=== PATIENT | female | born 1995 | race Caucasian/White ===

== ENCOUNTER → 2019-09-08 15:50 | Outpatient (CLI) | payer OTHER, MEDICAID, SELFPAY ==
[2019-09-08 16:53] LABS: Influenza A - CEPHEID Flu A NEGATIVE (NEGATIVE); Influenza B - CEPHEID Flu B NEGATIVE (NEGATIVE)
[2019-09-19 13:39] LABS: COVID19 Sendout Not Detected (Not Detected)
== END ==
PROVIDERS: Family Provider Family Medicine; PCP Family Medicine; Visit Provider Family Medicine
DX: R05 Cough (principal); R50.9 Fever, unspecified
CPT/HCPCS: 87502; 87635

== ENCOUNTER → 2019-09-24 10:20 | Outpatient (CLI) | payer OTHER, MEDICAID, SELFPAY ==
[2019-09-24 13:36] LABS: Add Manual Diff / Slide Review NO; Basophils Absolute Auto 0 /uL (0-100); Basophils Percent Auto 0.5 % (0-2); Eosinophils Absolute Auto 200 /uL (0-450); Eosinophils Percent Auto 1.9 % (2-4); Hematocrit 39.2 % (36-46); Hemoglobin 12.9 g/dL (12.0-16.0); Lymphocytes Absolute Auto 3100 /uL (1100-4500); Lymphocytes Percent Auto 33.6 % (25-40); Mean Corpuscular HGB Conc 32.9 % (30-36); Mean Corpuscular Hemoglobin 25.8 PG (26-34); Mean Corpuscular Volume 78.5 fL (80-100); Monocytes Absolute Auto 700 /uL (0-900); Monocytes Percent Auto 7.7 % (3-14); Neutrophils Absolute Auto 5200 /uL (1500-7000); Neutrophils Percent Auto 56.3 % (50-75); Platelet Count 219 X10^3/uL (150-400); Red Blood Cell Count 4.99 X10^6/uL (4.0-5.2); Red Cell Distribution Width 14.5 % (11.6-14.8); White Blood Cell Count 9.1 X10^3/uL (4.5-11.0)
[2019-09-24 13:53] LABS: Appearance Urine UA CLEAR; Bilirubin Urine UA NEGATIVE (NEGATIVE); Color Urine UA YELLOW; Glucose Urine UA NEGATIVE (Negative); Ketones Urine UA NEGATIVE (NEGATIVE); Leukocyte Esterase Urine UA TRACE (NEGATIVE); Nitrite Urine UA NEGATIVE (Negative); Occult Blood Urine UA NEGATIVE (Negative); Protein Urine UA NEGATIVE (Negative); Urobilinogen Urine UA 0.2 E.U./dL (0.2)
[2019-09-24 13:57] LABS: Alanine Aminotransferase 31 IU/L (<35); Albumin 4.2 g/dL (3.5-5.0); Albumin Globulin Ratio 1.6 (1.0-2.8); Alkaline Phosphatase 93 U/L (38-126); Amylase 53 U/L (30-110); Aspartate Aminotransferase 26 IU/L (14-36); BUN Creatinine Ratio 26.3 (6-22); Bilirubin Total 0.3 mg/dL (0.2-1.3); Blood Urea Nitrogen 15 mg/dL (7-17); Calcium 9.6 mg/dL (8.4-10.2); Carbon Dioxide 21 mmol/L (22-32); Chloride 107 mmol/L (98-107); Cholesterol 199 mg/dL (140-199); Estimated Glomerular Filt Rate > 60.0 mL/min (>60); Globulin 2.7 g/dL (1.7-4.1); Glucose 75 mg/dL (70-100); HDL Cholesterol 33 mg/dL (40-60); HEMOLYSIS < 15 (0-50); LDL Cholesterol Calculated 135 mg/dL (<100); Potassium 4.3 mmol/L (3.4-5.1); Sodium 138 mmol/L (137-145); Total Protein 6.9 g/dL (6.3-8.2); Triglycerides 154 mg/dL (35-150)
[2019-09-24 14:13] LABS: pH Urine UA 6.5 (4.5-8.0)
[2019-09-24 14:14] LABS: Bacteria Urine Many (>30); Culture Indicated Urine Specimen Cultured; RBC Urine 0-1/HPF (0-5/HPF); Squamous Epithelial Cell Urine 1-5 /HPF (0-5/HPF); WBC Urine 1-5/HPF (0-5/HPF)
[2019-09-24 14:24] LABS: Thyroid Stimulating Hormone 2.47 uIU/mL (0.47-4.68)
[2019-09-24 14:39] LABS: Hemoglobin A1C% w Est Avg Glu 5.3 % (4.0-6.0)
== END ==
PROVIDERS: Family Provider Family Medicine; PCP Family Medicine; Referring Provider Family Medicine; Visit Provider Family Medicine
DX: R11.2 Nausea with vomiting, unspecified (principal)
CPT/HCPCS: 36415; 80053; 80061; 81003; 81015; 82150; 83036; 84443; 85025; 87086

== ENCOUNTER → 2019-09-30 09:30 | Outpatient (CLI) | payer OTHER, MEDICAID, SELFPAY ==
--- NOTE | 2019-09-30 09:32 | DI.RAD.S_ITS ---
PROCEDURE: FL BARIUM SWALLOW INDICATIONS: Intermittent but persistent generally postprandial emesis COMPARISON: None. FINDINGS: Function: There is normal esophageal peristalsis. No elicited gastroesophageal reflux. Morphology: Air-contrast images demonstrate normal mucosal morphology. Single contrast views show no esophageal strictures, extrinsic mass effects, or diverticula. Images of the stomach demonstrate normal appearance. The duodenal bulb was well-visualized and appeared normal. IMPRESSION: Normal caliber of the esophagus, normal esophageal motility. No reflux observed. Normal appearance of the gastric lumen and duodenal bulb. Source of current symptoms is not seen. Dictated by: Shaka Griggs M.D. on 09/30/2019 at 10:52 Approved by: Shaka Griggs M.D. on 09/30/2019 at 10:53
== END ==
PROVIDERS: Family Provider Family Medicine; PCP Family Medicine; Referring Provider Family Medicine; Visit Provider Family Medicine
DX: R11.2 Nausea with vomiting, unspecified (principal)
CPT/HCPCS: 74220

== ENCOUNTER 2020-01-10 20:17 | Emergency (ER) | payer OTHER, MEDICAID, SELFPAY ==
[2020-01-10 20:20] VITALS: BP 142/70; PULSE 111; O2SAT 99
[2020-01-10 20:26] VITALS: BP 142/70; PULSE 105; RESP 18; TEMP 36.8; O2SAT 97; BMI 34.3
--- NOTE | 2020-01-10 20:32 | DI.RAD.S_ITS ---
PROCEDURE: XR CHEST 1V INDICATIONS: cough TECHNIQUE: One view of the chest was acquired. COMPARISON: None. FINDINGS: Surgical changes and devices: None. Lungs and pleura: Lungs are clear. No pleural effusions or pneumothorax. Mediastinum: Mediastinal contours appear normal. Heart size is normal. Bones and chest wall: No suspicious bony lesions. Overlying soft tissues appear unremarkable. IMPRESSION: No acute cardiopulmonary findings. Dictated by: Arabella Mejia M.D. on 01/10/2020 at 21:10 Approved by: Arabella Mejia M.D. on 01/10/2020 at 21:11
[2020-01-10 20:33] VITALS: PULSE 125; O2SAT 100
--- NOTE | 2020-01-10 20:33 | ED.URI ---
HPI - URI/Sore Throat General Chief Complaint: Upper Respiratory Symptoms Stated Complaint: Cough Time Seen by Provider: 01/10/20 20:21 History of Present Illness HPI Narrative: 24-year-old woman with a history of multiple personality disorder, depression, anxiety, PTSD, migraines and reflux presents with 5 days of a dry cough. She denies dyspnea or fevers. She has tried 2 puffs from an MDI and Tessalon Perles with no relief from the cough. She also notes that she is having increasing musculoskeletal pain because of the cough with some tenderness just medial to the right shoulder blade. No sore throat, no vomiting, no diarrhea, no rashes, no chest pain, no lower extremity edema, no change to smell or taste, she is able to eat and drink without difficulty. Related Data Home Medications Medication Instructions Recorded Confirmed clonidine HCl 0.1 mg tablet See Rx Instructions PO .COMPLEX 12/12/19 tab pantoprazole 40 mg tablet,delayed 40 mg PO DAILY 12/12/19 12/12/19 release Previous Rx's Medication Instructions Recorded ondansetron 8 mg disintegrating 8 mg PO Q8H #20 tab 09/24/19 tablet olanzapine 20 mg tablet 20 mg PO BEDTIME #30 tab 11/12/19 acyclovir 400 mg tablet 400 mg PO BID #120 tab 12/15/19 docusate sodium 100 mg capsule 100 mg PO BID #180 cap 12/15/19 lamotrigine 100 mg tablet 100 mg PO DAILY #30 tab 01/06/20 amitriptyline 25 mg tablet 25 mg PO BEDTIME #30 tab 01/08/20 buspirone 10 mg tablet 10 mg PO BID #60 tab 01/08/20 albuterol sulfate 90 mcg/actuation 2 puff INHALATION Q6H PRN #18 gram 01/10/20 aerosol inhaler benzonatate 100 mg capsule 100 mg PO BID-TID PRN #30 cap 01/10/20 Allergies Allergy/AdvReac Type Severity Reaction Status Date / Time latex [LATEX] Allergy Unknown Verified 12/12/19 12:56 Sulfa (Sulfonamide Allergy Unknown Verified 11/12/19 16:00 Antibiotics) [SULFA (SULFONAMIDE ANTIBIOTICS)] Review of Systems Review of Systems Narrative: Pertinent positive and negative findings as per HPI Remainder of review of systems is otherwise unremarkable for : Dysuria, hematuria, flank pain MS: Muscle weakness, numbness, joint swelling or warmth Skin: Rashes, nonhealing lesions Neuro: Syncope, dizziness, tingling Patient History Medical History Allergies (Chronic) Bronchitis (Acute) Dyspepsia (Acute) GERD (gastroesophageal reflux disease) (Acute) History of suicide attempt (Acute) Nausea & vomiting (Acute) Personality disorder (Chronic) Surgical History Anesthesia (Resolved) History of third molar tooth extraction History of tonsillectomy (~2013) Social History Smoking Status: Current every day smoker Smoking Status: Current every day smoker tobacco type: cigarettes Substance Use Type: does not use Exam Narrative Exam Narrative: General: Healthy appearing, in no acute distress. Able to give a complete and coherent history while speaking in full sentences. Well-nourished well-developed HEENT: Moist mucous membranes, normal sclera with reactive pupils, Neck: No cervical adenopathy, supple Respiratory: Lungs are clear to auscultation, no wheezing no rales no rhonchi. Full and symmetrical air movement, no accessory muscle use Cardiac: Regular rate and rhythm no murmurs no bruits Back: Muscle spasm and tenderness medial aspect of her right clavicle without rash, abrasion, trauma Abdomen: Soft nontender good bowel tones, no flank pain Skin: Warm and dry, no rashes Neurologic: Grossly neurologically intact with no obvious asymmetries or abnormalities Extremities: No trauma, well perfused Psych: Cooperative, appropriate insight and affect Initial Vital Signs Initial Vital Signs: Vital Signs Pulse Rate 111 H 01/10/20 20:20 Blood Pressure 142/70 H 01/10/20 20:20 Pulse Oximetry 99 01/10/20 20:20 Course Orders Ordered: ED Orders 01/10/20 20:32 XR chest 1V Stat Discontinued Medications Acetaminophen (Tylenol) 975 mg PO NOW ONE Stop: 01/10/20 21:15 Last Admin: 01/10/20 21:21 Dose: 975 mg Documented by: Albuterol (Ventolin Hfa) 8 puff INH NOW ONE Stop: 01/10/20 20:32 Last Admin: 01/10/20 20:50 Dose: 8 puff Documented by: SHANELLE Vital Signs Vital signs: Vital Signs - 8 hr 01/10/20 20:20 01/10/20 20:26 01/10/20 20:33 Temperature 98.3 F Pulse Rate 111 H 105 H 125 H Respiratory Rate 18 Blood Pressure 142/70 H 142/70 H Pulse Oximetry 99 97 100 01/10/20 20:51 01/10/20 21:00 Temperature Pulse Rate 124 H 120 H Respiratory Rate 20 Blood Pressure Pulse Oximetry 98 98 [facility] - URI/Sore Throat Lab Data Attestation: I reviewed the patient's lab results. Labs: Point of Care Testing Test Results Negative Urine Dip Bedside Urine Glucose Negative Bedside Urine Bilirubin + 1 Bedside Urine Ketone +/- 5 Urine Specific [place] 1.030 Bedside Urine Occult Blood - Negative Bedside Urine pH 5.5 Bedside Urine Protein - Negative Bedside Urine Urobilinogen - Negative Bedside Urine Nitrite - Negative Bedside Urine Leukocytes - Negative Esterase Imaging Data Chest x-ray: Radiologist's Impression: IMPRESSION: No acute cardiopulmonary findings. Dictated by: Arabella Mejia M.D. on 01/10/2020 at 21:10 [facility] Narrative Medical decision making narrative: 24-year-old woman with dry intermittent cough that is been present for approximately 2 weeks worse over the last 24 hours. No fevers or chills nonproductive. She has found that 2 puffs of her MDI directly into her mouth have not been effective and Tessalon Perles have not been effective in the last 24 hours but were working previously. Chest x-ray is unremarkable. Exam is unremarkable with no significant wheezing. Rather than a nebulizer (due to concerns for aerosolized particles in the emergency department) a spacer with 8 puffs of albuterol is administered with significant benefit. She has not used a spacer and is given spacer for home use along with instructions in use. She does still have Tessalon Perles at home. Asthma related cough verses viral infection with no evidence of sepsis, pulmonary emboli, congestive heart failure, or other life-threatening issues. She is safe for home discharge Discharge Plan Departure Patient Disposition: Home Clinical Impression: Cough Instructions: Coronavirus Disease 2019 Activity Restrictions/Additional Instructions: Thank you for coming in today Your chest x-ray was reassuring as were your vital signs including your oxygen saturation. Your clinical exam did not suggest significant wheezing. A covered test was done and you should self isolate until results are back sometime tomorrow. You will be be contacted with results. In the meantime, using albuterol the spacer seemed like it was effective in suppressing the cough a bit for you. I would recommend 2 puffs of your albuterol with a spacer every 6 hours. You may find with the cough slightly suppressed/treated with the albuterol that the Tessalon Perles that you currently have at home are more effective incompletely controlling the cough. If you find that you are getting worse, develope fevers, shortness of breath, began coughing up anything or have new or changing symptoms it would be appropriate to be re-evaluated by your primary care physician. Prescriptions: No Action olanzapine 20 mg tablet 20 mg PO BEDTIME Qty: 30 RF: 2 clonidine HCl 0.1 mg tablet See Rx Instructions PO .COMPLEX RF: 0 pantoprazole [Protonix] 40 mg tablet,delayed release (DR/EC) 40 mg PO DAILY RF: 0 acyclovir 400 mg tablet 400 mg PO BID Qty: 120 RF: 0 docusate sodium 100 mg capsule 100 mg PO BID Qty: 180 RF: 1 lamotrigine 100 mg tablet 100 mg PO DAILY Qty: 30 RF: 2 buspirone 10 mg tablet 10 mg PO BID Qty: 60 RF: 0 amitriptyline 25 mg tablet 25 mg PO BEDTIME Qty: 30 RF: 1 albuterol sulfate [ProAir HFA] 90 mcg/actuation HFA aerosol inhaler 2 puff INHALATION Q6H PRN (Reason: shortness of breath or wheezing) Qty: 18 RF: 0 benzonatate [Tessalon Perles] 100 mg capsule 100 mg PO BID-TID PRN (Reason: cough) Qty: 30 RF: 0 ondansetron 8 mg tablet,disintegrating 8 mg PO Q8H Qty: 20 RF: 2 Referrals: Max Samuels, [Primary Care Provider] - Stand Alone Forms: Work Release Note
[2020-01-10] MEDS: ALBUTEROL HFA 60 PUFF/8 GM INH 8 PUFF INH (20:50)
[2020-01-10 20:51] VITALS: PULSE 124; RESP 20; O2SAT 98
[2020-01-10 21:00] VITALS: PULSE 120; O2SAT 98
[2020-01-10] MEDS: ACETAMINOPHEN 325 MG TABLET 975 MG PO (21:21)
[2020-01-15 00:07] LABS: COVID19 Sendout Not Detected (Not Detected)
== END 2020-01-10 21:37 | disposition home or self-care (01) ==
PROVIDERS: Emergency Provider Emergency Medicine; Family Provider Family Medicine; PCP Family Medicine
DX: Z03.818 Encounter for observation for suspected exposure to other biological agents ruled out (principal); R05 Cough
CPT/HCPCS: 71045; 81003; 81025; 87635; 94640; 99283

== ENCOUNTER → 2020-03-03 08:16 | Outpatient (CLI) | payer OTHER, MEDICAID, SELFPAY ==
[2020-03-04 16:55] LABS: COVID19 Sendout Not Detected (Not Detected)
== END ==
PROVIDERS: Family Provider Family Medicine; PCP Family Medicine; Visit Provider Physician Assistant
DX: Z11.59 Encounter for screening for other viral diseases (principal)
CPT/HCPCS: 87635

== ENCOUNTER → 2020-03-31 12:04 | Outpatient (CLI) | payer OTHER, MEDICAID, SELFPAY ==
[2020-03-31 13:22] LABS: Add Manual Diff / Slide Review NO; Basophils Absolute Auto 0 /uL (0-100); Basophils Percent Auto 0.5 % (0-2); Eosinophils Absolute Auto 200 /uL (0-450); Eosinophils Percent Auto 1.8 % (2-4); Hematocrit 40.1 % (36-46); Hemoglobin 12.9 g/dL (12.0-16.0); Lymphocytes Absolute Auto 2200 /uL (1100-4500); Lymphocytes Percent Auto 22.3 % (25-40); Mean Corpuscular HGB Conc 32.2 % (30-36); Mean Corpuscular Hemoglobin 25.4 PG (26-34); Mean Corpuscular Volume 78.8 fL (80-100); Monocytes Absolute Auto 800 /uL (0-900); Monocytes Percent Auto 8.1 % (3-14); Neutrophils Absolute Auto 6600 /uL (1500-7000); Neutrophils Percent Auto 67.3 % (50-75); Platelet Count 222 X10^3/uL (150-400); Red Blood Cell Count 5.09 X10^6/uL (4.0-5.2); Red Cell Distribution Width 13.6 % (11.6-14.8); White Blood Cell Count 9.8 X10^3/uL (4.5-11.0)
[2020-03-31 14:15] LABS: Thyroid Stimulating Hormone 1.73 uIU/mL (0.47-4.68)
[2020-03-31 14:53] LABS: Alanine Aminotransferase 43 IU/L (<35); Albumin Globulin Ratio 1.5 (1.0-2.8); Alkaline Phosphatase 121 U/L (38-126); Aspartate Aminotransferase 32 IU/L (14-36); BUN Creatinine Ratio 15.8 (6-22); Bilirubin Total 0.4 mg/dL (0.2-1.3); Blood Urea Nitrogen 9 mg/dL (7-17); Calcium 9.2 mg/dL (8.4-10.2); Carbon Dioxide 26 mmol/L (22-32); Chloride 104 mmol/L (98-107); Cholesterol 166 mg/dL (140-199); Estimated Glomerular Filt Rate > 60.0 mL/min (>60); Globulin 2.7 g/dL (1.7-4.1); Glucose 100 mg/dL (70-100); HDL Cholesterol 31 mg/dL (40-60); HEMOLYSIS < 15 (0-50); LDL Cholesterol Calculated 121 mg/dL (<100); Potassium 4.2 mmol/L (3.4-5.1); Sodium 137 mmol/L (137-145); Total Protein 6.7 g/dL (6.3-8.2); Triglycerides 69 mg/dL (35-150)
== END ==
PROVIDERS: Family Provider Family Medicine; PCP Family Medicine; Referring Provider Family Medicine; Visit Provider Family Medicine
DX: G43.909 Migraine, unspecified, not intractable, without status migrainosus (principal); R55 Syncope and collapse; W19.XXXA Unspecified fall, initial encounter; E78.5 Hyperlipidemia, unspecified
CPT/HCPCS: 36415; 80053; 80061; 84443; 85025

== ENCOUNTER → 2020-04-01 14:02 | Outpatient (CLI) | payer OTHER, MEDICAID, SELFPAY ==
[2020-04-01 15:18] LABS: HEMOLYSIS < 15 (0-50); Iron 49 ug/dL (37-170)
[2020-04-01 15:29] LABS: Percent Iron Saturation 13 % (15-50); Total Iron Binding Capacity 390 ug/dL (265-497); Transferrin 313 mg/dL (206-381)
== END ==
PROVIDERS: Family Provider Family Medicine; PCP Family Medicine; Referring Provider Family Medicine; Visit Provider Family Medicine
DX: I49.8 Other specified cardiac arrhythmias (principal)
CPT/HCPCS: 36415; 83540; 83550

== ENCOUNTER → 2020-04-15 16:19 | Outpatient (CLI) | payer OTHER, MEDICAID, SELFPAY | PROVIDERS: Family Provider Family Medicine; PCP Family Medicine; Visit Provider Registered Nurse | DX: N39.0 Urinary tract infection, site not specified (principal) | CPT/HCPCS: 87077; 87086; 87147; 87186 ==

== ENCOUNTER → 2020-05-19 11:41 | Outpatient (CLI) | payer OTHER, MEDICAID, SELFPAY ==
[2020-05-19 12:13] LABS: COVID19 -Nasal RAPID Negative (Negative)
== END ==
PROVIDERS: Family Provider Family Medicine; PCP Family Medicine; Visit Provider Family Medicine
DX: R05 Cough (principal); Z11.59 Encounter for screening for other viral diseases
CPT/HCPCS: 87635

== ENCOUNTER → 2020-06-15 17:13 | Outpatient (CLI) | payer OTHER, MEDICAID, SELFPAY ==
--- NOTE | 2020-06-15 17:15 | DI.RAD.S_ITS ---
PROCEDURE: XR CHEST 2V INDICATIONS: Chronic Cough TECHNIQUE: 2 views of the chest were acquired. COMPARISON: [facility], CR, XR CHEST 1V, 01/10/2020, 20:50. FINDINGS: Surgical changes and devices: None. Lungs and pleura: Lungs are clear. No pleural effusions or pneumothorax. Mediastinum: Mediastinal contours are normal. Heart size is normal. Bones and chest wall: No suspicious bony abnormalities. Soft tissues appear unremarkable. IMPRESSION: No acute cardiopulmonary abnormality. Dictated by: Mehrdad Baeza M.D. on 06/15/2020 at 18:13 Approved by: Mehrdad Baeza M.D. on 06/15/2020 at 18:14
== END ==
PROVIDERS: Family Provider Family Medicine; PCP Family Medicine; Referring Provider Family Medicine; Visit Provider Family Medicine
DX: R05 Cough (principal)
CPT/HCPCS: 71046

== ENCOUNTER → 2020-07-14 16:59 | Outpatient (CLI) | payer OTHER, MEDICAID, SELFPAY ==
--- NOTE | 2020-07-14 17:02 | DI.RAD.S_ITS ---
PROCEDURE: XR LUMBAR SPINE 2-3V INDICATIONS: low back pain TECHNIQUE: 3 views of the lumbar spine were acquired. COMPARISON: [facility], , XR CHEST 2V, 06/15/2020, 17:15. FINDINGS: Bones: 5 [id number] vertebrae are present. Trace dextrocurvature. Grade 1 retrolisthesis L5-S1. No vertebral body compression fractures. No suspicious bony lesions. Soft tissues: Overlying bowel gas pattern is normal. No suspicious soft tissue calcifications. IMPRESSION: Trace dextrocurvature and grade 1 retrolisthesis L5-S1. Dictated by: Sukhi Holland [facility] Interpreted: Iftikhar Serrano MD on 07/15/2020 at 9:26 Approved by: Iftikhar Serrano M.D. on 07/15/2020 at 10:59
== END ==
PROVIDERS: Family Provider Family Medicine; PCP Family Medicine; Referring Provider Internal Medicine Cardiovascular Disease; Visit Provider Family Medicine
DX: M54.5 Low back pain (principal); M43.17 Spondylolisthesis, lumbosacral region
CPT/HCPCS: 72100

== ENCOUNTER 2020-07-18 16:00 | Emergency (ER) | payer OTHER, MEDICAID, SELFPAY ==
[2020-07-18 16:06] VITALS: BP 130/85; PULSE 119; RESP 24; TEMP 37.4; O2SAT 99
--- NOTE | 2020-07-18 17:33 | ED_ITS ---
HPI - Back Pain/Injury General Chief Complaint: Back Pain/Injury Stated Complaint: back pain x2 wks Time Seen by Provider: 07/18/20 17:33 Source: patient and family Mode of arrival: Ambulatory Limitations: no limitations History of Present Illness HPI Narrative: This is a 25-year-old female who comes complaint of back pain x2 weeks. Patient states she has had some episodes in the past but not frequently. She states most recent episode has been made worse by prolonged standing at work. 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 She does not describe any recent trauma or injury. She had denies fevers, no nausea or vomiting, no loss of bowel or bladder control, she denies radiation down the legs. She did describe the pain as being in her lower back and radiating down her gluteal cleft. She states she has increased pain with movement such as rotation and side bending. She also states she has increased pain with bowel movements but not in the rectum, she describes it as having increased pain when she bears down but higher up in the lumbar region. She denies any numbness, tingling or weakness to her extremities. She has not had any loss of sensation or saddle anesthesia. Patient has tried Tylenol, ibuprofen, and 3 different muscle relaxants without improvement. Today she went into the walk-in clinic and was told she could not have a Toradol shot because s he had already had ibuprofen today. Patient did have x-ray imaging and recent doctor's visit but had not reviewed those results with her physician. She states she has received steroids along with Percocet and found that to be very helpful for her back pain in the past when she was seen at [facility]. Related Data Home Medications Medication Instructions Recorded Confirmed pantoprazole 40 mg tablet,delayed 40 mg PO DAILY 12/12/19 07/07/20 release dicyclomine 10 mg PO PRN PRN 01/10/20 07/07/20 dexamethasone 4 mg tablet 4 mg PO DAILY 07/07/20 07/07/20 linaclotide 72 mcg capsule 72 mcg PO DAILY cap 07/07/20 07/07/20 methocarbamol 750 mg tablet 750 mg PO TID 07/07/20 07/07/20 oxycodone-acetaminophen 5 mg-325 1 tab PO TID PRN 07/07/20 07/07/20 mg tablet Previous Rx's Medication Instructions Recorded ondansetron 8 mg disintegrating 8 mg PO Q8H #20 tab 09/24/19 tablet docusate sodium 100 mg capsule 100 mg PO BID #180 cap 12/15/19 acyclovir 400 mg tablet 400 mg PO BID #180 tab 02/09/20 meclizine 12.5 mg tablet 12.5 mg PO BID PRN #30 tab 04/01/20 rizatriptan 5 mg tablet 5 mg PO ONCE #20 tab 04/01/20 buspirone 10 mg tablet 10 mg PO BID #60 tab 05/12/20 lamotrigine 100 mg tablet 150 mg PO DAILY #45 tab 05/12/20 olanzapine 20 mg tablet 20 mg PO BEDTIME #30 tab 05/12/20 clonidine HCl 0.1 mg tablet 0.2 mg PO BEDTIME #60 tab 07/06/20 piroxicam 20 mg capsule 20 mg PO DAILY #20 cap 07/14/20 tizanidine 4 mg tablet 4 mg PO TID PRN #20 tab 07/14/20 oxycodone-acetaminophen [Percocet] 1 tab PO Q6H PRN #7 tab 07/18/20 prednisone 50 mg PO DAILY #5 tab 07/18/20 Allergies Allergy/AdvReac Type Severity Reaction Status Date / Time latex [LATEX] Allergy Unknown Verified 07/07/20 15:56 Sulfa (Sulfonamide Allergy Unknown Verified 07/07/20 15:56 Antibiotics) [SULFA (SULFONAMIDE ANTIBIOTICS)] Review of Systems Review of Systems ROS Unobtainable: All systems reviewed & are unremarkable except as noted in HPI and below Patient History Medical History Acute bacterial bronchitis Allergies Bronchitis Chronic cough Dyspepsia GERD (gastroesophageal reflux disease) History of suicide attempt Low back strain Nausea & vomiting Personality disorder POTS (postural orthostatic tachycardia syndrome) Surgical History Anesthesia History of third molar tooth extraction History of tonsillectomy (~2012) Social History Smoking Status: Former smoker (Quit 06/15/20 ) Smoking Status: Former smoker (Quit 06/15/20 ) tobacco type: cigarettes Substance Use Type: does not use Exam Narrative Exam Narrative: GENERAL: Alert and oriented x three, well-nourished female in mild to moderate discomfort. HEENT: Head normocephalic, atraumatic, EOMI, pupils reactive, face symmetric, moist mucous membranes NECK: Supple, full range of motion CARDIOVASCULAR: Regular rate and rhythm without murmurs, rubs or gallops. RESPIRATORY: Breath sounds equal bilaterally, no wheezes rales or rhonchi. ABDOMEN: Soft, nontender. Normoactive bowel sounds all 4 quadrants. No guarding or rebound, rigidity, no mass : No CVA tenderness BACK: No cervical, thoracic or lumbar vertebral point tenderness except at the L5-S1 region. No warmth, erythema or other skin changes appreciated. Patient has somewhat range of motion, patient appears uncomfortable but is able to move herself independently. Rectal exam is deferred. Muscle strength is 5/5 in lower extremities, DTRs are 2/4 and lower extremities. Dorsalis pedis and tibialis pulses are 2+ and lower extremities. Sensation is intact in the lower extremities. EXTREMITIES: Normal range of motion, no clubbing or edema. Neurovascularly intact NEUROLOGICAL: Cranial nerves II through XII grossly intact. Moving all extremities SKIN: Warm, dry, no petechiae, no rashes or lesions. Initial Vital Signs Initial Vital Signs: Vital Signs Temperature 99.4 F 07/18/20 16:06 Pulse Rate 119 H 07/18/20 16:06 Respiratory Rate 24 07/18/20 16:06 Blood Pressure 130/85 07/18/20 16:06 Pulse Oximetry 99 07/18/20 16:06 Course Orders Ordered: Discontinued Medications Oxycodone/Acetaminophen (Oxycodone/Acetaminophen 5/325 Tablet) 1 tab PO NOW ONE Stop: 07/18/20 18:13 Last Admin: 07/18/20 18:22 Dose: Not Given Documented by: MANJIT Oxycodone/Acetaminophen (Oxycodone/Apap 5/325 Prepack) 1 bottle MISC SEEINSTR ONE Stop: 07/18/20 18:18 Last Admin: 07/18/20 18:23 Dose: 1 bottle Documented by: MANJIT Prednisone (Prednisone 20 Mg Tablet) 40 mg PO NOW ONE Stop: 07/18/20 18:13 Last Admin: 07/18/20 18:17 Dose: 40 mg Documented by: MANJIT Vital Signs Vital signs: Vital Signs - 8 hr 07/18/20 16:06 07/18/20 18:25 Temperature 99.4 F Pulse Rate 119 H 90 Respiratory Rate 24 16 Blood Pressure 130/85 125/80 Pulse Oximetry 99 99 [facility] - Back Pain/Injury Lab Data Labs: Point of Care Testing Test Results Negative Urine Dip Bedside Urine Glucose 1000 mg/dl Bedside Urine Bilirubin - Negative Bedside Urine Ketone - Negative Urine Specific [place] 1.030 Bedside Urine Occult Blood - Negative Bedside Urine pH 6.0 Bedside Urine Protein - Negative Bedside Urine Urobilinogen - Negative Bedside Urine Nitrite - Negative Bedside Urine Leukocytes - Negative Esterase Imaging Data Lumbar xray: Radiologist's Impression: [address] [id number] ReportSigned Patient: Brigitte Patrick NMR#: [id number]: 1995Acct:[id number]/Sex: 25 / FDate of Service: 07/14/20Loc: RADAccession Number: [id number] Procedure: XR lumbar spine 2-3V Ordering Provider: Max Samuels D.O. PROCEDURE: XR LUMBAR SPINE 2-3V INDICATIONS: low back pain TECHNIQUE: 3 views of the lumbar spine were acquired. COMPARISON: [facility], , XR CHEST 2V, 06/15/2020, 17:15. FINDINGS: Bones: 5 [id number] vertebrae are present. Trace dextrocurvature. Grade 1 retrolisthesis L5-S1. No vertebral body compression fractures. No suspicious bony lesions. Soft tissues: Overlying bowel gas pattern is normal. No suspicious soft tissue calcifications. IMPRESSION: Trace dextrocurvature and grade 1 retrolisthesis L5-S1. Dictated by: Sukhi Holland [facility] Interpreted: Iftikhar Serrano MD on 07/15/2020 at 9:26 Approved by: Iftikhar Serrano M.D. on 07/15/2020 at 10:59 [facility] Narrative Medical decision making narrative: 25-year-old female comes in with complaint of acute on chronic back pain although she has only had several episodes. She has seen her primary care she has been recommend PT. Given a short course of steroid and pain medication. She had imaging on July 14 of this is reviewed. She does have a grade 1 retrolisthesis at L5-S1 but no other significant changes noted. Patient recommended for referral and red flag symptoms discussed and encouraged her return if she has any of these. Discharge Plan Departure Patient Disposition: Home Clinical Impression: Low back pain Instructions: DI for Low Back Pain Activity Restrictions/Additional Instructions: Follow-up with your physician in the next week for recheck. I do recommend PT for your back pain. Take steroids once daily until gone. Take pain medication as prescribed, medication can make you sleepy do not drive, perform hazardous activities make any major decisions while taking. This medication is constipating I would recommend a stool softener 1 or 2 times daily stools are soft and regular. Return for fevers, severe worsening back pain, loss of bowel or bladder control, inability to move your legs, feel them, loss of sensation or other new or concerning symptoms Prescriptions: New prednisone 50 mg tablet 50 mg PO DAILY Qty: 5 RF: 0 oxycodone-acetaminophen [Percocet] 5-325 mg tablet 1 tab PO Q6H PRN (Reason: pain) Qty: 7 RF: 0 No Action oxycodone-acetaminophen [Percocet] 5-325 mg tablet 1 tab PO TID PRNRF: 0 dexamethasone 4 mg tablet 4 mg PO DAILY RF: 0 pantoprazole [Protonix] 40 mg tablet,delayed release (DR/EC) 40 mg PO DAILY RF: 0 olanzapine 20 mg tablet 20 mg PO BEDTIME Qty: 30 RF: 2 buspirone 10 mg tablet 10 mg PO BID Qty: 60 RF: 2 lamotrigine 100 mg tablet 150 mg PO DAILY Qty: 45 RF: 2 docusate sodium 100 mg capsule 100 mg PO BID Qty: 180 RF: 1 acyclovir 400 mg tablet 400 mg PO BID Qty: 180 RF: 1 clonidine HCl 0.1 mg tablet 0.2 mg PO BEDTIME Qty: 60 RF: 0 Linzess 72 mcg capsule 72 mcg PO DAILY RF: 0 methocarbamol 750 mg tablet 750 mg PO TID RF: 0 piroxicam [Feldene] 20 mg capsule 20 mg PO DAILY Qty: 20 RF: 0 tizanidine 4 mg tablet 4 mg PO TID PRN (Reason: muscle spasticity) Qty: 20 RF: 0 ondansetron 8 mg tablet,disintegrating 8 mg PO Q8H Qty: 20 RF: 2 rizatriptan 5 mg tablet 5 mg PO ONCE Qty: 20 RF: 0 meclizine 12.5 mg tablet 12.5 mg PO BID PRN (Reason: dizziness) Qty: 30 RF: 0 dicyclomine 10 mg capsule 10 mg PO PRN PRN (Reason: Abdominal Discomfort) RF: 0 Referrals: Max Samuels DO [Primary Care Provider] -
[2020-07-18] MEDS: predniSONE 20 MG TABLET 40 MG PO (18:17)
[2020-07-18] MEDS: OXYCODONE/APAP 5/325 PREPACK 1 BOTTLE MISC (18:23)
[2020-07-18 18:25] VITALS: BP 125/80; PULSE 90; RESP 16; O2SAT 99
== END 2020-07-18 18:25 | disposition home or self-care (01) ==
PROVIDERS: Emergency Provider Emergency Medicine; Family Provider Family Medicine; PCP Family Medicine
DX: M54.5 Low back pain (principal)
CPT/HCPCS: 81003; 81025; 99282; 99283

== ENCOUNTER 2020-08-05 14:36 | Emergency (ER) | payer OTHER, MEDICAID, SELFPAY ==
[2020-08-05 14:51] VITALS: BP 133/94; PULSE 96; RESP 16; TEMP 36.2; O2SAT 100; BMI 39.8
[2020-08-05 16:00] LABS: Appearance Urine UA SL CLOUDY; Bilirubin Urine UA NEGATIVE (NEGATIVE); Color Urine UA YELLOW; Glucose Urine UA NEGATIVE (Negative); Ketones Urine UA NEGATIVE (NEGATIVE); Leukocyte Esterase Urine UA TRACE (NEGATIVE); Nitrite Urine UA NEGATIVE (Negative); Occult Blood Urine UA TRACE-LYSED (Negative); Protein Urine UA TRACE (Negative); Urobilinogen Urine UA 0.2 E.U./dL (0.2)
[2020-08-05 16:09] LABS: pH Urine UA 6.5 (4.5-8.0)
[2020-08-05 16:10] LABS: Amorphous Sediment Urine 1+; Bacteria Urine Moderate (10-30); Culture Indicated Urine Specimen Cultured; Mucus Urine 1+ (Negative); RBC Urine 0-1/HPF (0-5/HPF); Squamous Epithelial Cell Urine 5-10 /HPF (0-5/HPF); WBC Urine 5-10/HPF (0-5/HPF)
--- NOTE | 2020-08-05 16:44 | ED.BACK ---
HPI - Back Pain/Injury General Chief Complaint: Back Pain/Injury Stated Complaint: Pain in tailbone x2 weeks Time Seen by Provider: 08/05/20 16:44 Source: patient and family Mode of arrival: Ambulatory Limitations: no limitations History of Present Illness HPI Narrative: This is a 25-year-old female who has been seen by myself in the past for lower back pain. Patient states the pain has moved further down into her tailbone and has been present for the last 2 weeks. Last seen it was noted she had an L5-S1 retrolisthesis, she states she has been going to PT since she was seen here and her 2nd session was yesterday which seemed to exacerbate her symptoms. Any trauma or falls she has not had any swelling, redness or drainage from the gluteal crease. She does not have any rectal pain or pain with bowel movement. Patient denies fevers, no chills. No upper back pain. No chest pain or shortness of breath. No vomiting., she has had some frequency, sense of urgency and dysuria. She states she has had a little bit of pain down her right leg. She denies any numbness, tingling. No bowel or bladder incontinence. She states she has tried ibuprofen, Tylenol as well as a muscle relaxer without much improvement. She is accompanied by her mother. Related Data Home Medications Medication Instructions Recorded Confirmed pantoprazole 40 mg tablet,delayed 40 mg PO DAILY 12/12/19 07/28/20 release dicyclomine 10 mg PO PRN PRN 01/10/20 07/28/20 linaclotide 72 mcg capsule 72 mcg PO DAILY cap 07/07/20 07/28/20 Previous Rx's Medication Instructions Recorded ondansetron 8 mg disintegrating 8 mg PO Q8H #20 tab 09/24/19 tablet docusate sodium 100 mg capsule 100 mg PO BID #180 cap 12/15/19 acyclovir 400 mg tablet 400 mg PO BID #180 tab 02/09/20 buspirone 10 mg tablet 10 mg PO BID #60 tab 05/12/20 lamotrigine 100 mg tablet 150 mg PO DAILY #45 tab 05/12/20 olanzapine 20 mg tablet 20 mg PO BEDTIME #30 tab 05/12/20 propranolol 10 mg tablet See Rx Instructions PO .COMPLEX 07/28/20 #60 tab rizatriptan 5 mg tablet 5 mg PO ONCE #20 tab 08/02/20 cephalexin [Keflex] 500 mg PO BID #10 cap 08/05/20 lidocaine 1 patch TOPICAL DAILY PRN #15 ea 08/05/20 meloxicam 7.5 mg PO DAILY PRN #20 tab 08/05/20 Allergies Allergy/AdvReac Type Severity Reaction Status Date / Time latex [LATEX] Allergy Unknown Verified 08/05/20 14:50 Sulfa (Sulfonamide Allergy Unknown Verified 08/05/20 14:50 Antibiotics) [SULFA (SULFONAMIDE ANTIBIOTICS)] Review of Systems Review of Systems ROS Unobtainable: All systems reviewed & are unremarkable except as noted in HPI and below Patient History Medical History Acute bacterial bronchitis Allergies Bronchitis Chronic cough Dyspepsia GERD (gastroesophageal reflux disease) History of suicide attempt Low back strain Nausea & vomiting Personality disorder POTS (postural orthostatic tachycardia syndrome) Surgical History Anesthesia History of third molar tooth extraction History of tonsillectomy (~2012) Social History Smoking Status: Former smoker Smoking Status: Former smoker tobacco type: cigarettes Substance Use Type: does not use Exam Narrative Exam Narrative: GENERAL: Alert and oriented x three, obese, well-appearing female in mild distress. HEENT: Head normocephalic, atraumatic, EOMI, pupils reactive, face symmetric, moist mucous membranes NECK: Supple, full range of motion CARDIOVASCULAR: Regular rate and rhythm without murmurs, rubs or gallops. RESPIRATORY: Breath sounds equal bilaterally, no wheezes rales or rhonchi. ABDOMEN: Soft, nontender. Normoactive bowel sounds all 4 quadrants. No guarding or rebound, rigidity, no mass, patient does not have swelling, erythema, induration or fluctuance over the buttocks, gluteal crease or within the crease. Unable to palpate directly onto the bone which seems to be the area that is tender. BACK: No cervical, thoracic or lumbar vertebral point tenderness. Patient does have tenderness over the coccyx specifically. Patient has normal range of motion. Patient's gait is [antalgic/normal]. Rectal exam is deferred. Muscle strength is 5/5 in lower extremities. Patient is able to roll over onto her abdomen and return to her back without difficulty. Sensation intact bilateral lower extremities. : No CVA tenderness EXTREMITIES: Normal range of motion, no clubbing or edema. Neurovascularly intact NEUROLOGICAL: Cranial nerves II through XII grossly intact. Moving all extremities SKIN: Warm, dry, no petechiae, no rashes or lesions. Initial Vital Signs Initial Vital Signs: Vital Signs Temperature 97.1 F L 08/05/20 14:51 Pulse Rate 96 H 08/05/20 14:51 Respiratory Rate 16 08/05/20 14:51 Blood Pressure 133/94 H 08/05/20 14:51 Pulse Oximetry 100 08/05/20 14:51 Course Orders Ordered: ED Orders 08/05/20 15:44 UA Complete [Urinalysis and Microscopic] Stat Urine Culture Stat 08/05/20 16:53 XR sacrum coccyx min 2V Stat Vital Signs Vital signs: Vital Signs - 8 hr 08/05/20 14:51 08/05/20 17:50 Temperature 97.1 F L Pulse Rate 96 H 102 H Respiratory Rate 16 16 Blood Pressure 133/94 H 102/64 Pulse Oximetry 100 97 MDM - Back Pain/Injury Lab Data Attestation: I reviewed the patient's lab results. Labs: Lab Results 08/05/20 Range/Units 15:44 Urine Color Yellow Urine Appearance Sl cloudy Urine pH 6.5 (4.5-8.0) Ur Specific [place] 1.020 (1.000-1.035) Urine Protein Trace H (Negative) Urine Glucose (UA) Negative (Negative) g/dL Urine Ketones Negative (NEGATIVE) Urine Occult Blood Trace-lysed (Negative) Urine Nitrate Negative (Negative) Urine Bilirubin Negative (NEGATIVE) Urine Urobilinogen 0.2 (0.2) E.U./dL Ur Leukocyte Esterase Trace H (NEGATIVE) Urine RBC 0-1/hpf (0-5/HPF) Urine WBC 5-10/hpf H (0-5/HPF) Ur Squamous Epith Cells 5-10 /hpf H (0-5/HPF) Amorphous Sediment 1+ Urine Bacteria Moderate (10-30) H (None) Urine Mucus 1+ H (Negative) Ur Culture Indicated? Specimen cultured Point of Care Testing Test Results Negative Urine Dip Bedside Urine Glucose Negative Bedside Urine Bilirubin - Negative Bedside Urine Ketone - Negative Urine Specific [place] 1.025 Bedside Urine Occult Blood +/- Bedside Urine pH 6.0 Bedside Urine Protein +/- 15 Bedside Urine Urobilinogen - Negative Bedside Urine Nitrite - Negative Bedside Urine Leukocytes - Negative Esterase Imaging Data sacrum/coccyx: Radiologist's Impression: [place] [id number] [place] [id number] ReportSigned Patient: Brigitte Patrick NMR#: [id number]: 1995Acct:[id number]/Sex: 25 / FDate of Service: 08/05/20Loc: EDAccession Number: [id number] Procedure: XR sacrum coccyx min 2V Ordering Provider: Saskia Sepulveda D.O. PROCEDURE: XR SACRUM COCCYX MIN 2V INDICATIONS: coccyx pain, no known trauma, hx L5/S1 retrolithesis TECHNIQUE: 3 views of the sacrum and coccyx acquired. COMPARISON: [facility], CR, XR LUMBAR SPINE 2-3V, 07/14/2020, 17:06. FINDINGS: Bones: No fractures or dislocations. No suspicious bony lesions. The coccyx demonstrates an anteriorly projected angle, which is not considered to be frankly pathologic. Minimal retrolisthesis is seen at L5-S1. Soft tissues: Visualized bowel gas pattern is normal. No suspicious soft tissue densities. IMPRESSION: No significant plain film abnormality is seen. Dictated by: Chalino Martell M.D. on 08/05/2020 at 16:07 Approved by: Chalino Martell M.D. on 08/05/2020 at 16:08 [facility] [place] Narrative Medical decision making narrative: [place] [employer] shows last Rx refill from 07/19/20 for 7 tabs and 07/07/20 for 18 tabs with prior from October. Xray does not show acute changes with no trauma. There is no skin changes that are suspicious for pilonidal cyst or rectal abscess. Patient ambulates without major issue and exam findings are positive for tenderness over the coccyx. She has some L5-S1 changes has been doing PT and this is likely irritated the area. Discharge Plan Departure Patient Disposition: Home Clinical Impression: Coccydynia, UTI (urinary tract infection) Instructions: Coccydynia Activity Restrictions/Additional Instructions: Follow-up with your physician in the next week. Talk with your PT to see if they need to adjust your treatments this is likely irritating the area and causing your pain. Your urine does show changes consistent with a bladder infection, take antibiotics twice daily until gone. You may use azo or Pyridium 1 tablet every 8 hours as needed for bladder spasm. Take pain medication as prescribed you may take 1 tablet every 12 hours. You may take Tylenol with this medication up to a 1000 mg every 8 hours. May use lidocaine patch just above the gluteal crease for his symptoms to see if this is helpful. Prescriptions sent to [facility] in [place]. Changed after patient left at there request to [facility] [place]. Return to the ER for fevers, new redness, swelling or skin changes over the coccyx region, loss of bowel or bladder control, rapidly worsening symptoms, new weakness, inability usually extremity or loss of sensation, fevers, chest pain, abdominal pain/flank pain, passing out or persistent vomiting or other new or concerning symptoms. Prescriptions: New cephalexin [Keflex] 500 mg capsule 500 mg PO BID Qty: 10 RF: 0 lidocaine 5 % adhesive patch,medicated 1 patch topical DAILY PRN (Reason: pain) Qty: 15 RF: 0 meloxicam 7.5 mg tablet 7.5 mg PO DAILY PRN (Reason: pain) Qty: 20 RF: 0 No Action pantoprazole [Protonix] 40 mg tablet,delayed release (DR/EC) 40 mg PO DAILY RF: 0 olanzapine 20 mg tablet 20 mg PO BEDTIME Qty: 30 RF: 2 buspirone 10 mg tablet 10 mg PO BID Qty: 60 RF: 2 lamotrigine 100 mg tablet 150 mg PO DAILY Qty: 45 RF: 2 propranolol 10 mg tablet See Rx Instructions PO .COMPLEX Qty: 60 RF: 0 docusate sodium 100 mg capsule 100 mg PO BID Qty: 180 RF: 1 acyclovir 400 mg tablet 400 mg PO BID Qty: 180 RF: 1 Linzess 72 mcg capsule 72 mcg PO DAILY RF: 0 rizatriptan 5 mg tablet 5 mg PO ONCE Qty: 20 RF: 2 ondansetron 8 mg tablet,disintegrating 8 mg PO Q8H Qty: 20 RF: 2 dicyclomine 10 mg capsule 10 mg PO PRN PRN (Reason: Abdominal Discomfort) RF: 0 Referrals: Max Samuels, [Primary Care Provider] -
--- NOTE | 2020-08-05 16:53 | DI.RAD.S_ITS ---
PROCEDURE: XR SACRUM COCCYX MIN 2V INDICATIONS: coccyx pain, no known trauma, hx L5/S1 retrolithesis TECHNIQUE: 3 views of the sacrum and coccyx acquired. COMPARISON: [facility], , XR LUMBAR SPINE 2-3V, 07/14/2020, 17:06. FINDINGS: Bones: No fractures or dislocations. No suspicious bony lesions. The coccyx demonstrates an anteriorly projected angle, which is not considered to be frankly pathologic. Minimal retrolisthesis is seen at L5-S1. Soft tissues: Visualized bowel gas pattern is normal. No suspicious soft tissue densities. IMPRESSION: No significant plain film abnormality is seen. Dictated by: Chalino Martell M.D. on 08/05/2020 at 16:07 Approved by: Chalino Martell M.D. on 08/05/2020 at 16:08
[2020-08-05 17:50] VITALS: BP 102/64; PULSE 102; RESP 16; O2SAT 97
--- NOTE | 2020-08-05 17:51 | PC.NURSE ---
Pt states I know I have a UTI but my tailbone still hurts. No injury to the area. Pt has been seen and evaluated for same recently and x ray was neg for fx
== END 2020-08-05 18:09 | disposition home or self-care (01) ==
PROVIDERS: Emergency Provider Emergency Medicine; Family Provider Family Medicine; PCP Family Medicine
DX: M53.3 Sacrococcygeal disorders, not elsewhere classified (principal); N39.0 Urinary tract infection, site not specified; E66.9 Obesity, unspecified; Z68.39 Body mass index [BMI] 39.0-39.9, adult
CPT/HCPCS: 72220; 81001; 81003; 81025; 87077; 87086; 87186; 99282; 99283

== ENCOUNTER 2020-08-14 22:28 | Emergency (ER) | payer OTHER, MEDICAID, SELFPAY ==
[2020-08-14 22:36] VITALS: BP 129/71; PULSE 115; PULSE 95; RESP 17; TEMP 37; O2SAT 99; BMI 40.7
--- NOTE | 2020-08-14 22:45 | ED_ITS ---
HPI - Abdominal Pain General Chief Complaint: Abdominal Pain Stated Complaint: right side abdominal pain Time Seen by Provider: 08/14/20 22:43 Source: patient Mode of arrival: Ambulatory Limitations: no limitations History of Present Illness HPI narrative: This is a 25-year-old female who comes to the emergency [facility] with complaint of right-sided abdominal pain which started 3 hours prior to arrival. Patient states that she has not had similar pain in the past she does have a history of IBS but states this feels different. She did stop her Linzess was having 1-2 times daily stools that were well-formed. Patient states she developed pain she states it was close to her belly button and radiates towards the right side. She states it feels worse when she pushes but does not worsen when she releases her fingers. She denies fever or chills. She denies any nausea or vomiting. She states she has had 5 or 6 loose stools today but no melena or hematochezia. She denies any urinary frequency dysuria or urgency but states she was recently on antibiotics for UTI. She has also been taking meloxicam for tailbone pain and following with PT for her lower back. She states her back is been feeling better she continues to have some pain in her tailbone. Patient denies any vaginal bleeding or discharge. Related Data Home Medications Medication Instructions Recorded Confirmed pantoprazole 40 mg tablet,delayed 40 mg PO DAILY 12/12/19 07/28/20 release dicyclomine 10 mg PO PRN PRN 01/10/20 07/28/20 linaclotide 72 mcg capsule 72 mcg PO DAILY cap 07/07/20 07/28/20 Previous Rx's Medication Instructions Recorded ondansetron 8 mg disintegrating 8 mg PO Q8H #20 tab 09/24/19 tablet docusate sodium 100 mg capsule 100 mg PO BID #180 cap 12/15/19 acyclovir 400 mg tablet 400 mg PO BID #180 tab 02/09/20 buspirone 10 mg tablet 10 mg PO BID #60 tab 05/12/20 lamotrigine 100 mg tablet 150 mg PO DAILY #45 tab 05/12/20 olanzapine 20 mg tablet 20 mg PO BEDTIME #30 tab 05/12/20 propranolol 10 mg tablet See Rx Instructions PO .COMPLEX 07/28/20 #60 tab rizatriptan 5 mg tablet 5 mg PO ONCE #20 tab 08/02/20 cephalexin [Keflex] 500 mg PO BID #10 cap 08/05/20 lidocaine 1 patch TOPICAL DAILY PRN #15 ea 08/05/20 meloxicam 7.5 mg PO DAILY PRN #20 tab 08/05/20 Allergies Allergy/AdvReac Type Severity Reaction Status Date / Time latex [LATEX] Allergy Unknown Verified 08/05/20 14:50 Sulfa (Sulfonamide Allergy Unknown Verified 08/05/20 14:50 Antibiotics) [SULFA (SULFONAMIDE ANTIBIOTICS)] Review of Systems Review of Systems ROS Unobtainable: All systems reviewed & are unremarkable except as noted in HPI and below Patient History Medical History Acute bacterial bronchitis Allergies Bronchitis Chronic cough Dyspepsia GERD (gastroesophageal reflux disease) History of suicide attempt Low back strain Nausea & vomiting Personality disorder POTS (postural orthostatic tachycardia syndrome) Surgical History Anesthesia History of third molar tooth extraction History of tonsillectomy (~2012) Social History Smoking Status: Former smoker Smoking Status: Former smoker tobacco type: cigarettes Substance Use Type: does not use Exam Narrative Exam Narrative: GENERAL: Alert and oriented x three, obese, well-appearing female in mild distress HEENT: Head normocephalic, atraumatic, EOMI, pupils reactive, face symmetric, moist mucous membranes NECK: Supple, full range of motion CARDIOVASCULAR: Regular but tachycardic rate and rhythm without murmurs, rubs or gallops. RESPIRATORY: Breath sounds equal bilaterally, no wheezes rales or rhonchi. ABDOMEN: Soft, mid right-sided abdominal pain that is moderate. Normoactive bowel sounds all 4 quadrants. No guarding or rebound, rigidity, no mass. : No CVA tenderness EXTREMITIES: Normal range of motion, no clubbing or edema. Neurovascularly intact NEUROLOGICAL: Cranial nerves II through XII grossly intact. Moving all extremities SKIN: Warm, dry, no petechiae, no rashes or lesions. Initial Vital Signs Initial Vital Signs: Vital Signs Temperature 98.6 F 08/14/20 22:36 Pulse Rate 115 H 08/14/20 22:36 Respiratory Rate 17 08/14/20 22:36 Blood Pressure 129/71 08/14/20 22:36 Pulse Oximetry 99 08/14/20 22:36 Course Orders Ordered: ED Orders 08/14/20 22:50 Complete Blood Count AUTO DIFF Stat Comprehensive Metabolic Panel Stat Lactate (Lactic Acid) Stat Lipase Stat 08/14/20 23:02 CT abdomen pelvis w con Stat 08/14/20 23:18 Blood Culture Stat 08/15/20 00:22 Urine Culture Stat Discontinued Medications Sodium Chloride (Normal Saline 0.9%) 1,000 mls @ 1,000 mls/hr IV BOLUS ONE Stop: 08/14/20 23:47 Last Infusion: 08/14/20 23:19 Dose: 1,000 mls/hr Documented by: Infusion: 08/14/20 23:09 Dose: 0 mls/hr Documented by: Admin: 08/14/20 23:03 Dose: 1,000 mls/hr Documented by: NANI Sodium Chloride (Normal Saline 0.9%) 1,000 mls @ 1,000 mls/hr IV BOLUS ONE Stop: 08/15/20 00:01 Last Admin: 08/14/20 23:51 Dose: Not Given Documented by: NANI Ketorolac Tromethamine (Ketorolac 60 Mg/2 Ml Vial) 30 mg IV NOW ONE Stop: 08/14/20 23:03 Last Admin: 08/14/20 23:14 Dose: 30 mg Documented by: NANI Vital Signs Vital signs: Vital Signs - 8 hr 08/14/20 22:36 08/14/20 22:56 08/14/20 23:00 Temperature 98.6 F Pulse Rate 95 H Respiratory Rate 17 Blood Pressure 129/71 132/86 135/85 Pulse Oximetry 99 100 100 08/14/20 23:38 08/15/20 00:00 08/15/20 00:27 Temperature Pulse Rate 112 H 100 H Respiratory Rate 20 14 Blood Pressure 127/68 Pulse Oximetry 99 99 98 MDM - Abdominal Pain Lab Data Attestation: I reviewed the patient's lab results. Result diagrams: 08/14/20 22:50 08/14/20 22:50 Labs: Lab Results 02/20/21 02/20/21 02/20/21 Range/Units 22:50 22:50 22:50 WBC 12.4 H (4.5-11.0) X10^3/uL RBC 4.89 (4.0-5.2) X10^6/uL Hgb 12.0 (12.0-16.0) g/dL Hct 37.7 (36-46) % MCV 77.1 L (80-100) fL MCH 24.5 L (26-34) PG MCHC 31.8 (30-36) % RDW 14.3 (11.6-14.8) % Plt Count 257 (150-400) X10^3/uL Neut % (Auto) 62.0 (50-75) % Lymph % (Auto) 27.3 (25-40) % [place] % (Auto) 8.7 (3-14) % Eos % (Auto) 1.4 L (2-4) % Baso % (Auto) 0.6 (0-2) % Neut # (Auto) 7700 H (1716-9400) /uL Lymph # (Auto) 3400 (6958-2473) /uL [place] # (Auto) 1100 H (0-900) /uL Eos # (Auto) 200 (0-450) /uL Baso # (Auto) 100 (0-100) /uL Sodium 136 L (137-145) mmol/L Potassium 3.7 (3.4-5.1) mmol/L Chloride 104 (98-107) mmol/L Carbon Dioxide 29 (22-32) mmol/L BUN 9 (7-17) mg/dL Creatinine 0.81 (0.52-1.04) mg/dL Estimated GFR > 60.0 (>60) mL/min BUN/Creatinine Ratio 11.1 (6-22) Glucose 163 H (70-100) mg/dL Lactate 1.5 (0.7-2.1) mmol/L Calcium 9.3 (8.4-10.2) mg/dL Total Bilirubin 0.1 L (0.2-1.3) mg/dL AST 25 (14-36) IU/L ALT 29 (<35) IU/L Alkaline Phosphatase 104 (38-126) U/L Total Protein 6.8 (6.3-8.2) g/dL Albumin 4.1 (3.5-5.0) g/dL Globulin 2.7 (1.7-4.1) g/dL Albumin/Globulin Ratio 1.5 (1.0-2.8) Lipase 69 (23-300) U/L Point of care testing: Point of Care Testing Test Results Negative Urine Dip Bedside Urine Glucose Negative Bedside Urine Bilirubin - Negative Bedside Urine Ketone - Negative Urine Specific [place] 1.025 Bedside Urine Occult Blood - Negative Bedside Urine pH 6 Bedside Urine Protein - Negative Bedside Urine Urobilinogen - Negative Bedside Urine Nitrite - Negative Bedside Urine Leukocytes - Negative Esterase Imaging Data CT scan - abdomen/pelvis: Radiologist's Impression: wall thickening versus under distention of the bladder. Correlate with urinarlysis to exclude cystitis. Clear lung adamson. Unremarkable gallbladder. Wall thickening versus under distention of the bladder. No hydronephrosis. 3 mm calcification left kidney could be nonobstructing nephrolithiasis versus parenchymal. Anteverted uterus. No ovarian lesions. The other solid organs are unremarkable. No bowel wall thickening or dilation. A normal appendix is identified. Unremarkable vasculature. No lymphadenopathy. No ascites. No acute osseous abnormality. MDM Narrative Medical decision making narrative: This is a 25-year-old female comes in with r ight-sided abdominal pain which she describes as being closed our umbilical button and just adjacent. Patient on exam is has sort of mid abdominal right side abdominal pain. Her labs 12.4, microcytic red blood cells. She does have a leftward shift. Sodium is 136 with a glucose of 163, normal renal function and electrolytes otherwise with no elevation in LFTs or lipase. Patient's urine does not show any acute infection, negative for . Patient's imaging shows some thickening of the bladder wall although this could be from being on distended she has had a recent UTIs been currently on antibiotics so urine was sent for culture although she has not been having clear symptoms. Patient defers pelvic exam states that she is asymptomatic with any vaginal discharge or bleeding. She does have a history of IBS and has had frequent loose stools in the last 24 hours and we discussed this may be part of her symptoms. Discharge Plan Departure Patient Disposition: Home Clinical Impression: Abdominal pain Instructions: Acute Abdominal Pain Activity Restrictions/Additional Instructions: Follow up with primary care for recheck if you continue to have pain. You may continue your home medications as prescribed. Your urine was sent for urine culture but does not show any obvious signs of infection today. There was questionable thickening of the bladder on your CT scan but this can be from being underdistended vs infection. Return to the ER for fevers, persistent vomiting, rapidly worsening abdominal back or flank pain, black or bloody stools, difficulty with urination, inability urinate or other new or concerning symptoms. Prescriptions: No Action pantoprazole [Protonix] 40 mg tablet,delayed release (DR/EC) 40 mg PO DAILY RF: 0 olanzapine 20 mg tablet 20 mg PO BEDTIME Qty: 30 RF: 2 buspirone 10 mg tablet 10 mg PO BID Qty: 60 RF: 2 lamotrigine 100 mg tablet 150 mg PO DAILY Qty: 45 RF: 2 propranolol 10 mg tablet See Rx Instructions PO .COMPLEX Qty: 60 RF: 0 docusate sodium 100 mg capsule 100 mg PO BID Qty: 180 RF: 1 acyclovir 400 mg tablet 400 mg PO BID Qty: 180 RF: 1 Linzess 72 mcg capsule 72 mcg PO DAILY RF: 0 rizatriptan 5 mg tablet 5 mg PO ONCE Qty: 20 RF: 2 ondansetron 8 mg tablet,disintegrating 8 mg PO Q8H Qty: 20 RF: 2 dicyclomine 10 mg capsule 10 mg PO PRN PRN (Reason: Abdominal Discomfort) RF: 0 cephalexin [Keflex] 500 mg capsule 500 mg PO BID Qty: 10 RF: 0 lidocaine 5 % adhesive patch,medicated 1 patch topical DAILY PRN (Reason: pain) Qty: 15 RF: 0 meloxicam 7.5 mg tablet 7.5 mg PO DAILY PRN (Reason: pain) Qty: 20 RF: 0 Referrals: Max Samuels, [Primary Care Provider] -
[2020-08-14 22:56] VITALS: BP 132/86; O2SAT 100
[2020-08-14 23:00] VITALS: BP 135/85; O2SAT 100
--- NOTE | 2020-08-14 23:02 | DI.CT.S_ITS ---
PROCEDURE: CT ABDOMEN PELVIS W CON INDICATIONS: RLQ pain, tachycardia, frequent loose stools TECHNIQUE: After the administration of intravenous contrast, 5 mm thick sections acquired from the diaphragm to the symphysis. 5 mm coronal and sagittal reformats were acquired. For radiation dose reduction, the following was used: automated exposure control, adjustment of mA and/or kV according to patient size. COMPARISON: [facility], CR, XR SACRUM COCCYX MIN 2V, 08/05/2020, 16:54. FINDINGS: Image quality: Excellent. ABDOMEN: Lung bases: Lung bases are clear. Heart size is normal. Solid organs: Liver is normal in size and enhancement. Gallbladder is largely collapsed at the time of this study. Biliary system is non dilated. Pancreas enhances normally. Spleen is normal in size and enhancement. No adrenal nodules. Kidneys demonstrate normal size and enhancement, without hydronephrosis. A 2 mm left kidney nonobstructing kidney stone can be seen, as on series 4, image 47. Peritoneum and bowel: In this patient with this given history, scrutiny is given to the appendix. The appendix is well seen and is normal, as on series 2, images 58 through 70. No focal right lower quadrant inflammatory changes are seen. Bowel loops demonstrate normal wall thickness and caliber. No free fluid or air. Nodes and vessels: No retroperitoneal or mesenteric adenopathy by size criteria. Aorta and inferior vena cava are normal in size. Miscellaneous: A mild periumbilical hernia is seen, containing fat. PELVIS: Genitourinary: Bladder wall demonstrates mild circumferential thickening. The uterus appears normal for age. No adnexal masses are seen. Miscellaneous: No inguinal hernias or adenopathy. Bones: No suspicious bony lesions. No vertebral body compression fractures. IMPRESSION: Normal appendix. Mild circumferential wall thickening of the bladder wall. Differential diagnosis includes underdistention versus cystitis. Incidental note is made of: Nonobstructing left-sided kidney stone Fat containing periumbilical hernia Note: No significant discrepancy from the preliminary report. Dictated by: Chalino Martell M.D. on 08/15/2020 at 7:06 Approved by: Chalino Martell M.D. on 08/15/2020 at 7:09
[2020-08-14] MEDS: SODIUM CHLORIDE 0.9% 1,000 ML 1000 ML IV (23:03)
[2020-08-14 23:12] LABS: Add Manual Diff / Slide Review NO; Basophils Absolute Auto 100 /uL (0-100); Basophils Percent Auto 0.6 % (0-2); Eosinophils Absolute Auto 200 /uL (0-450); Eosinophils Percent Auto 1.4 % (2-4); Hematocrit 37.7 % (36-46); Lymphocytes Absolute Auto 3400 /uL (1100-4500); Lymphocytes Percent Auto 27.3 % (25-40); Mean Corpuscular HGB Conc 31.8 % (30-36); Mean Corpuscular Hemoglobin 24.5 PG (26-34); Mean Corpuscular Volume 77.1 fL (80-100); Monocytes Absolute Auto 1100 /uL (0-900); Monocytes Percent Auto 8.7 % (3-14); Neutrophils Absolute Auto 7700 /uL (1500-7000); Platelet Count 257 X10^3/uL (150-400); Red Blood Cell Count 4.89 X10^6/uL (4.0-5.2); Red Cell Distribution Width 14.3 % (11.6-14.8); White Blood Cell Count 12.4 X10^3/uL (4.5-11.0)
[2020-08-14] MEDS: KETOROLAC 60 MG/2 ML VIAL 30 MG IV (23:14)
[2020-08-14 23:16] LABS: Alanine Aminotransferase 29 IU/L (<35); Albumin 4.1 g/dL (3.5-5.0); Albumin Globulin Ratio 1.5 (1.0-2.8); Alkaline Phosphatase 104 U/L (38-126); Aspartate Aminotransferase 25 IU/L (14-36); BUN Creatinine Ratio 11.1 (6-22); Bilirubin Total 0.1 mg/dL (0.2-1.3); Blood Urea Nitrogen 9 mg/dL (7-17); Calcium 9.3 mg/dL (8.4-10.2); Carbon Dioxide 29 mmol/L (22-32); Chloride 104 mmol/L (98-107); Estimated Glomerular Filt Rate > 60.0 mL/min (>60); Globulin 2.7 g/dL (1.7-4.1); Glucose 163 mg/dL (70-100); HEMOLYSIS < 15 (0-50); Lactate (Lactic Acid) 1.5 mmol/L (0.7-2.1); Lipase 69 U/L (23-300); Potassium 3.7 mmol/L (3.4-5.1); Sodium 136 mmol/L (137-145); Total Protein 6.8 g/dL (6.3-8.2)
[2020-08-14 23:38] VITALS: O2SAT 99
[2020-08-15] VITALS: PULSE 112; RESP 20; O2SAT 99
[2020-08-15 00:27] VITALS: BP 127/68; PULSE 100; RESP 14; O2SAT 98
== END 2020-08-15 00:38 | disposition home or self-care (01) ==
PROVIDERS: Emergency Provider Emergency Medicine; Family Provider Family Medicine; PCP Family Medicine
DX: R10.9 Unspecified abdominal pain (principal); R00.0 Tachycardia, unspecified; E66.9 Obesity, unspecified; Z68.41 Body mass index [BMI] 40.0-44.9, adult; Z87.19 Personal history of other diseases of the digestive system
CPT/HCPCS: 36415; 74177; 80053; 81003; 81025; 83605; 83690; 85025; 87040; 87086; 96374; 99283; 99284; J1885; Q9967

== ENCOUNTER 2020-10-11 16:47 | Emergency (ER) | payer OTHER, MEDICAID, SELFPAY ==
[2020-10-11 16:53] VITALS: BP 122/76; PULSE 111; RESP 22; TEMP 37.1; O2SAT 100
--- NOTE | 2020-10-11 17:14 | ED.ABDPAIN ---
HPI - Abdominal Pain General Chief Complaint: Abdominal Pain Stated Complaint: N,V,D x4 days Time Seen by Provider: 10/11/20 16:55 Source: patient Mode of arrival: Ambulatory History of Present Illness HPI narrative: 25-year-old woman with a history of anxiety, irritable bowel syndrome and sinus tachycardia presents with 2 days of lower abdominal pain/bladder pain. She states that she ate at [employer] 48 hours ago and had vomiting associated with diarrhea shortly there after. She has not had any vomiting or diarrhea for the past 24 hours but now is noticing suprapubic pain and some tenderness up into the flank area bilaterally. She describes chills but no fevers. No chest pain, palpitations, dyspnea, upper abdominal pain, rashes. She states that she currently is on Nexplanon and has not had a menstrual cycle for about a year but is not currently sexually active. She describes no vaginal discharge, no vaginal odors and only mild dysuria. Related Data Home Medications Medication Instructions Recorded Confirmed pantoprazole 40 mg tablet,delayed 40 mg PO DAILY 12/12/19 09/17/20 release dicyclomine 10 mg PO PRN PRN 01/10/20 09/17/20 linaclotide 72 mcg capsule 72 mcg PO DAILY cap 07/07/20 09/17/20 Previous Rx's Medication Instructions Recorded ondansetron 8 mg disintegrating 8 mg PO Q8H #20 tab 09/24/19 tablet docusate sodium 100 mg capsule 100 mg PO BID #180 cap 12/15/19 buspirone 10 mg tablet 10 mg PO BID #60 tab 05/12/20 lamotrigine 100 mg tablet 150 mg PO DAILY #45 tab 05/12/20 propranolol 10 mg tablet See Rx Instructions PO .COMPLEX 07/28/20 #60 tab rizatriptan 5 mg tablet 5 mg PO ONCE #20 tab 08/02/20 lidocaine 1 patch TOPICAL DAILY PRN #15 ea 08/05/20 meloxicam 7.5 mg PO DAILY PRN #20 tab 08/05/20 acyclovir 400 mg tablet 400 mg PO BID #180 tab 08/31/20 olanzapine 20 mg tablet 10 mg PO BEDTIME #30 tab 09/17/20 quetiapine 100 mg tablet 100 mg PO BEDTIME #30 tab 09/17/20 clonidine HCl 0.1 mg tablet 0.1 - 0.2 mg PO BEDTIME #60 tab 10/05/20 cephalexin 500 mg PO TID #21 cap 10/11/20 nitrofurantoin monohyd/m-cryst 100 mg PO DAILY #45 cap 10/11/20 [Macrobid] nitrofurantoin 100 mg PO Q12H 5 Days #10 cap 10/11/20 monohydrate/macrocrystals 100 mg capsule Allergies Allergy/AdvReac Type Severity Reaction Status Date / Time latex [LATEX] Allergy Unknown Verified 09/17/20 13:52 Sulfa (Sulfonamide Allergy Unknown Verified 09/17/20 13:52 Antibiotics) [SULFA (SULFONAMIDE ANTIBIOTICS)] Review of Systems Review of Systems Narrative: Remainder of complete review of systems is otherwise unremarkable except for that included in the HPI. Patient History Medical History Acute bacterial bronchitis Allergies Bronchitis Chronic cough Dyspepsia GERD (gastroesophageal reflux disease) History of suicide attempt Low back strain Nausea & vomiting Personality disorder POTS (postural orthostatic tachycardia syndrome) Surgical History Anesthesia History of third molar tooth extraction History of tonsillectomy (~2012) Social History Smoking Status: Former smoker Smoking Status: Former smoker tobacco type: cigarettes Substance Use Type: does not use Exam Narrative Exam Narrative: General: Healthy appearing, in no acute distress. Able to give a complete and coherent history. Well-nourished well-developed HEENT: Moist mucous membranes, normal sclera with reactive pupils, Respiratory: Lungs are clear to auscultation, no wheezing no rales no rhonchi. Full and symmetrical air movement Cardiac: Regular rate and rhythm no murmurs no bruits Abdomen: Soft, mild suprapubic tenderness without rebound or guarding, good bowel tones, no flank pain to palpation Skin: Warm and dry, no rashes Neurologic: Grossly neurologically intact with no obvious asymmetries or abnormalities Extremities: No trauma, well perfused Psych: Cooperative, appropriate insight and affect Initial Vital Signs Initial Vital Signs: Vital Signs Temperature 98.8 F 10/11/20 16:53 Pulse Rate 111 H 10/11/20 16:53 Respiratory Rate 22 10/11/20 16:53 Blood Pressure 122/76 10/11/20 16:53 Pulse Oximetry 100 10/11/20 16:53 Course Orders Ordered: ED Orders 10/11/20 16:55 Complete Blood Count AUTO DIFF Stat Comprehensive Metabolic Panel Stat Lipase Stat Partial Thromboplastin Time Stat Prothrombin Time INR Stat 10/11/20 17:25 Chlamydia Gonorrhea PCR -URINE Stat Discontinued Medications Ondansetron HCl (Ondansetron 4 Mg/2 Ml Inj) 4 mg IV NOW ONE Stop: 10/11/20 16:56 Vital Signs Vital signs: Vital Signs - 8 hr 10/11/20 16:53 Temperature 98.8 F Pulse Rate 111 H Respiratory Rate 22 Blood Pressure 122/76 Pulse Oximetry 100 MDM - Abdominal Pain Medical Records Attestation: I reviewed the patient's medical records. [facility] Narrative Medical decision making narrative: Patient left at urine sample with Dr. Samuels so office earlier today that shows white cells and bacteria consistent with a urinary tract infection. In reviewing her records she notes that she has had ?chronic bladder infections? for the last number of months. In July of this year she did have a urine culture that grew out Klebsiella that was sensitive to everything except amoxicillin. That was treated with cephalexin. She had recurrent symptoms in later July but no urine growth with those symptoms. Urine has been obtained and will ask for gonorrhea and chlamydia to be added to the urine sample. Will place her on cephalexin 500 mg t.i.d. for 7 days and then have her continue suppression Macrobid 100 mg daily for 6 weeks. Will have her follow-up with her primary care physician. Discharge Plan Departure Patient Disposition: Home Clinical Impression: Recurrent urinary tract infection Instructions: DI for Urinary Tract Infection (UTI) Activity Restrictions/Additional Instructions: Thank you for coming in today Your urine sample from this morning does show a bladder infection. I am going to start you on cephalexin 3 times a day for the next 7 days. Because you have had recurrent symptoms I am also going to suggest that you complete 6 weeks of suppression dose antibiotics, Macrobid 100 mg daily, to prevent recurrence. To be on the safe side, I have also added a gonorrhea and chlamydia test to your urine from this morning. Sometimes these infections can cause chronic urinary tract type symptoms that do not completely clear with the usual antibiotics If you develop fevers, worsening flank pain, uncontrolled vomiting or other concerns, please feel free to return to the emergency department Prescriptions: New cephalexin 500 mg capsule 500 mg PO TID Qty: 21 RF: 0 nitrofurantoin monohyd/m-cryst [Macrobid] 100 mg capsule 100 mg PO DAILY Qty: 45 RF: 0 No Action pantoprazole [Protonix] 40 mg tablet,delayed release (DR/EC) 40 mg PO DAILY RF: 0 buspirone 10 mg tablet 10 mg PO BID Qty: 60 RF: 2 lamotrigine 100 mg tablet 150 mg PO DAILY Qty: 45 RF: 2 propranolol 10 mg tablet See Rx Instructions PO .COMPLEX Qty: 60 RF: 0 olanzapine 20 mg tablet 10 mg PO BEDTIME Qty: 30 RF: 0 quetiapine 100 mg tablet 100 mg PO BEDTIME Qty: 30 RF: 0 docusate sodium 100 mg capsule 100 mg PO BID Qty: 180 RF: 1 Linzess 72 mcg capsule 72 mcg PO DAILY RF: 0 rizatriptan 5 mg tablet 5 mg PO ONCE Qty: 20 RF: 2 acyclovir 400 mg tablet 400 mg PO BID Qty: 180 RF: 3 clonidine HCl 0.1 mg tablet 0.1 - 0.2 mg PO BEDTIME Qty: 60 RF: 1 nitrofurantoin monohyd/m-cryst 100 mg capsule 100 mg PO Q12H 5 Days Qty: 10 RF: 0 ondansetron 8 mg tablet,disintegrating 8 mg PO Q8H Qty: 20 RF: 2 dicyclomine 10 mg capsule 10 mg PO PRN PRN (Reason: Abdominal Discomfort) RF: 0 lidocaine 5 % adhesive patch,medicated 1 patch topical DAILY PRN (Reason: pain) Qty: 15 RF: 0 meloxicam 7.5 mg tablet 7.5 mg PO DAILY PRN (Reason: pain) Qty: 20 RF: 0 Referrals: Max Samuels DO [Primary Care Provider] -
[2020-10-11 17:39] VITALS: BP 128/80; PULSE 95; RESP 16; O2SAT 99
[2020-10-11 19:06] LABS: Urine N gonorrhoeae NOT DETECTED
[2020-10-11 19:25] LABS: Urine Chlamydia NOT DETECTED
== END 2020-10-11 17:40 | disposition home or self-care (01) ==
PROVIDERS: Emergency Provider Emergency Medicine; Family Provider Family Medicine; PCP Family Medicine
DX: N39.0 Urinary tract infection, site not specified (principal); R00.0 Tachycardia, unspecified
CPT/HCPCS: 81001; 87077; 87086; 87186; 87491; 87591; 99281; 99282

== ENCOUNTER → 2020-10-26 13:00 | Outpatient (CLI) | payer OTHER, MEDICAID, SELFPAY | PROVIDERS: Family Provider Family Medicine; PCP Family Medicine; Visit Provider Physician Assistant | DX: N39.0 Urinary tract infection, site not specified (principal); R32 Unspecified urinary incontinence | CPT/HCPCS: 87086 ==

== ENCOUNTER 2020-10-29 00:59 | Emergency (ER) | payer OTHER, MEDICAID, SELFPAY ==
[2020-10-29 01:21] VITALS: BP 132/90; PULSE 91; RESP 20; TEMP 37.3; O2SAT 100; BMI 42.0
--- NOTE | 2020-10-29 01:28 | ED_ITS ---
HPI - Nausea/Vomiting/Diarrhea General Chief complaint: Nausea/Vomiting/Diarrhea Stated complaint: nausea/vomiting/diarrhea x 2 days Time Seen by Provider: 10/29/20 01:04 Source: patient Mode of arrival: Ambulatory Limitations: no limitations History of Present Illness HPI Narrative: 25-year-old woman who presents with nausea vomiting and diarrhea far worse than her usual complaints. She states she has been able to eat a fruit cup only today with 7 episodes of vomiting since 4:00 p.m. jovanni. She states that she just ?does not feel good?. She has had stomach cramping for a number of days. She does have a GI specialist and did contact them yesterday because of not been returned. She has taken it Zofran at home and it has not found it was particularly helpful. She has a diagnosis of irritable bowel sy ndrome, for which she uses Linzess when she is having constipation and dicyclomine for cramping. She also has esophagitis and takes Protonix twice a day. She describes no fevers, no blood in her stool, no chest pain, palpitations and notes that her chronic tachycardia has not been particularly troublesome recently. Related Data Home Medications Medication Instructions Recorded Confirmed pantoprazole 40 mg tablet,delayed 40 mg PO DAILY 12/12/19 09/17/20 release dicyclomine 10 mg PO PRN PRN 01/10/20 09/17/20 linaclotide 72 mcg capsule 72 mcg PO DAILY cap 07/07/20 09/17/20 Previous Rx's Medication Instructions Recorded ondansetron 8 mg disintegrating 8 mg PO Q8H #20 tab 09/24/19 tablet docusate sodium 100 mg capsule 100 mg PO BID #180 cap 12/15/19 buspirone 10 mg tablet 10 mg PO BID #60 tab 05/12/20 propranolol 10 mg tablet See Rx Instructions PO .COMPLEX 07/28/20 #60 tab rizatriptan 5 mg tablet 5 mg PO ONCE #20 tab 08/02/20 meloxicam 7.5 mg PO DAILY PRN #20 tab 08/05/20 acyclovir 400 mg tablet 400 mg PO BID #180 tab 08/31/20 clonidine HCl 0.1 mg tablet 0.1 - 0.2 mg PO BEDTIME #60 tab 10/05/20 cephalexin 500 mg PO TID #21 cap 10/11/20 nitrofurantoin monohyd/m-cryst 100 mg PO DAILY #45 cap 10/11/20 [Macrobid] lamotrigine 100 mg tablet 150 mg PO DAILY #45 tab 10/21/20 quetiapine 100 mg tablet 150 mg PO BEDTIME #45 tab 10/22/20 ondansetron 8 mg PO Q8H PRN #60 tab 10/29/20 Allergies Allergy/AdvReac Type Severity Reaction Status Date / Time latex [LATEX] Allergy Unknown Verified 10/26/20 12:48 Sulfa (Sulfonamide Allergy Unknown Verified 10/26/20 12:48 Antibiotics) [SULFA (SULFONAMIDE ANTIBIOTICS)] Review of Systems Review of Systems Narrative: Remainder of complete review of systems is otherwise unremarkable except for that included in the HPI. Patient History Medical History Acute bacterial bronchitis Allergies Bronchitis Chronic cough Dyspepsia Frequent UTI GERD (gastroesophageal reflux disease) History of suicide attempt Incontinence Low back strain Nausea & vomiting Personality disorder POTS (postural orthostatic tachycardia syndrome) Surgical History Anesthesia History of third molar tooth extraction History of tonsillectomy (~2012) Social History Smoking Status: Former smoker Smoking Status: Former smoker tobacco type: cigarettes Substance Use Type: does not use Exam Narrative Exam Narrative: General: Healthy appearing, in no acute distress. Able to give a complete and coherent history. Well-nourished well-developed HEENT: Moist mucous membranes, normal sclera with reactive pupils, Respiratory: Lungs are clear to auscultation, no wheezing no rales no rhonchi. Full and symmetrical air movement Cardiac: Regular rate and rhythm no murmurs no bruits Abdomen: Soft, diffusely tender without rebound or guarding, good bowel tones, no flank pain Skin: Warm and dry, no rashes Neurologic: Grossly neurologically intact with no obvious asymmetries or abnormalities Extremities: No trauma, well perfused Psych: Cooperative, appropriate insight and affect Initial Vital Signs Initial Vital Signs: Vital Signs Temperature 99.1 F 10/29/20 01:21 Pulse Rate 91 H 10/29/20 01:21 Respiratory Rate 20 10/29/20 01:21 Blood Pressure 132/90 10/29/20 01:21 Pulse Oximetry 100 10/29/20 01:21 Course Orders Ordered: ED Orders 10/29/20 01:19 Complete Blood Count AUTO DIFF Stat Comprehensive Metabolic Panel Stat Discontinued Medications Sodium Chloride (Normal Saline 0.9%) 1,000 mls @ 1,000 mls/hr IV BOLUS ONE Stop: 10/29/20 02:25 Last Admin: 10/29/20 01:32 Dose: 1,000 mls/hr Documented by: KATHERINE Ondansetron HCl (Ondansetron 4 Mg/2 Ml Inj) 4 mg IV NOW ONE Stop: 10/29/20 01:27 Last Admin: 10/29/20 01:33 Dose: 4 mg Documented by: KATHERINE Vital Signs Vital signs: Vital Signs - 8 hr 10/29/20 01:21 Temperature 99.1 F Pulse Rate 91 H Respiratory Rate 20 Blood Pressure 132/90 Pulse Oximetry 100 MDM - Nausea/Vomiting/Diarrhea Medical Records Attestation: I reviewed the patient's medical records. Lab Data Result diagrams: 10/29/20 01:19 10/29/20 01:19 Labs: Lab Results 10/29/20 10/29/20 Range/Units 01:19 01:19 WBC 13.6 H (4.5-11.0) X10^3/uL RBC 5.05 (4.0-5.2) X10^6/uL Hgb 12.2 (12.0-16.0) g/dL Hct 37.7 (36-46) % MCV 74.6 L (80-100) fL MCH 24.1 L (26-34) PG MCHC 32.4 (30-36) % RDW 13.9 (11.6-14.8) % Plt Count 268 (150-400) X10^3/uL Neut % (Auto) 65.4 (50-75) % Lymph % (Auto) 24.7 L (25-40) % [place] % (Auto) 7.1 (3-14) % Eos % (Auto) 2.2 (2-4) % Baso % (Auto) 0.6 (0-2) % Neut # (Auto) 8900 H (2732-0133) /uL Lymph # (Auto) 3400 (3227-9836) /uL [place] # (Auto) 1000 H (0-900) /uL Eos # (Auto) 300 (0-450) /uL Baso # (Auto) 100 (0-100) /uL Sodium 138 (137-145) mmol/L Potassium 3.7 (3.4-5.1) mmol/L Chloride 104 (98-107) mmol/L Carbon Dioxide 25 (22-32) mmol/L BUN 9 (7-17) mg/dL Creatinine 0.77 (0.52-1.04) mg/dL Estimated GFR > 60.0 (>60) mL/min BUN/Creatinine Ratio 11.7 (6-22) Glucose 98 (70-100) mg/dL Calcium 9.5 (8.4-10.2) mg/dL Total Bilirubin 0.3 (0.2-1.3) mg/dL AST 29 (14-36) IU/L ALT 37 H (<35) IU/L Alkaline Phosphatase 141 H (38-126) U/L Total Protein 7.2 (6.3-8.2) g/dL Albumin 4.2 (3.5-5.0) g/dL Globulin 3.0 (1.7-4.1) g/dL Albumin/Globulin Ratio 1.4 (1.0-2.8) Urine Dip Bedside Urine Glucose Negative Bedside Urine Bilirubin - Negative Bedside Urine Ketone - Negative Urine Specific [place] 1.025 Bedside Urine Occult Blood - Negative Bedside Urine pH 6.0 Bedside Urine Protein - Negative Bedside Urine Urobilinogen - Negative Bedside Urine Nitrite - Negative Bedside Urine Leukocytes - Negative Esterase MDM Narrative Medical decision making narrative: 25-year-old woman with multiple gastroenterology symptoms at all seem to be a bit exacerbated tonight. Lab work is reassuring. No evidence of acute infectious etiology to explain the i ncreased nausea vomiting or diarrhea. No evidence of severe dehydration. She does note that she uses marijuana nightly but small amounts. She finds that it does help control the nausea a bit. Hot showers are not helpful in controlling her symptoms. I do not think that this is a cannabinoid hyperemesis variant. She is improved with a L of normal saline and IV Zofran. She is out of Zofran at home so will refill this for her. She has tried other anti emetics and has not found them to be effective for her. At this point without evidence of acute surgical abdomen, infection, dramatic like to let abnormality or other life- threatening findings she is safe for home discharge and I will encourage her to follow-up with her primary specialty manufacturing supervisor. Discharge Plan Departure Patient Disposition: Home Clinical Impression: Nausea & vomiting Qualifiers: Vomiting type: unspecified Vomiting Intractability: non-intractable Qualified Code(s): R11.2 - Nausea with vomiting, unspecified Diarrhea Qualifiers: Diarrhea type: unspecified type Qualified Code(s): R19.7 - Diarrhea, unspecified Instructions: DI for Nausea -- Adult Activity Restrictions/Additional Instructions: Thank you for coming in today. Your workup was unremarkable. No signs of overall infection, obstruction, electrolyte abnormalities or kidney dysfunction. Please do continue to follow-up with your specialty manufacturing supervisor. I have refilled your Zofran. This prescription was electronically transmitted to [facility] in [place] I hope you feel better Prescriptions: New ondansetron 8 mg tablet,disintegrating 8 mg PO Q8H PRN (Reason: nausea and vomiting) Qty: 60 RF: 0 No Action pantoprazole [Protonix] 40 mg tablet,delayed release (DR/EC) 40 mg PO DAILY RF: 0 buspirone 10 mg tablet 10 mg PO BID Qty: 60 RF: 2 propranolol 10 mg tablet See Rx Instructions PO .COMPLEX Qty: 60 RF: 0 docusate sodium 100 mg capsule 100 mg PO BID Qty: 180 RF: 1 Linzess 72 mcg capsule 72 mcg PO DAILY RF: 0 rizatriptan 5 mg tablet 5 mg PO ONCE Qty: 20 RF: 2 acyclovir 400 mg tablet 400 mg PO BID Qty: 180 RF: 3 clonidine HCl 0.1 mg tablet 0.1 - 0.2 mg PO BEDTIME Qty: 60 RF: 1 lamotrigine 100 mg tablet 150 mg PO DAILY Qty: 45 RF: 2 quetiapine 100 mg tablet 150 mg PO BEDTIME Qty: 45 RF: 0 ondansetron 8 mg tablet,disintegrating 8 mg PO Q8H Qty: 20 RF: 2 dicyclomine 10 mg capsule 10 mg PO PRN PRN (Reason: Abdominal Discomfort) RF: 0 meloxicam 7.5 mg tablet 7.5 mg PO DAILY PRN (Reason: pain) Qty: 20 RF: 0 cephalexin 500 mg capsule 500 mg PO TID Qty: 21 RF: 0 nitrofurantoin monohyd/m-cryst [Macrobid] 100 mg capsule 100 mg PO DAILY Qty: 45 RF: 0 Referrals: Max Samuels DO [Primary Care Provider] -
[2020-10-29] MEDS: SODIUM CHLORIDE 0.9% 1,000 ML 1000 ML IV (01:32)
[2020-10-29 01:33] LABS: Add Manual Diff / Slide Review NO; Basophils Absolute Auto 100 /uL (0-100); Basophils Percent Auto 0.6 % (0-2); Eosinophils Absolute Auto 300 /uL (0-450); Eosinophils Percent Auto 2.2 % (2-4); Hematocrit 37.7 % (36-46); Hemoglobin 12.2 g/dL (12.0-16.0); Lymphocytes Absolute Auto 3400 /uL (1100-4500); Lymphocytes Percent Auto 24.7 % (25-40); Mean Corpuscular HGB Conc 32.4 % (30-36); Mean Corpuscular Hemoglobin 24.1 PG (26-34); Mean Corpuscular Volume 74.6 fL (80-100); Monocytes Absolute Auto 1000 /uL (0-900); Monocytes Percent Auto 7.1 % (3-14); Neutrophils Absolute Auto 8900 /uL (1500-7000); Neutrophils Percent Auto 65.4 % (50-75); Platelet Count 268 X10^3/uL (150-400); Red Blood Cell Count 5.05 X10^6/uL (4.0-5.2); Red Cell Distribution Width 13.9 % (11.6-14.8); White Blood Cell Count 13.6 X10^3/uL (4.5-11.0)
[2020-10-29] MEDS: ONDANSETRON 4 MG/2 ML INJ IV (01:33)
[2020-10-29 01:37] LABS: Alanine Aminotransferase 37 IU/L (<35); Albumin 4.2 g/dL (3.5-5.0); Albumin Globulin Ratio 1.4 (1.0-2.8); Alkaline Phosphatase 141 U/L (38-126); Aspartate Aminotransferase 29 IU/L (14-36); BUN Creatinine Ratio 11.7 (6-22); Bilirubin Total 0.3 mg/dL (0.2-1.3); Blood Urea Nitrogen 9 mg/dL (7-17); Calcium 9.5 mg/dL (8.4-10.2); Carbon Dioxide 25 mmol/L (22-32); Chloride 104 mmol/L (98-107); Estimated Glomerular Filt Rate > 60.0 mL/min (>60); Glucose 98 mg/dL (70-100); HEMOLYSIS < 15 (0-50); Potassium 3.7 mmol/L (3.4-5.1); Sodium 138 mmol/L (137-145); Total Protein 7.2 g/dL (6.3-8.2)
[2020-10-29 03:07] VITALS: BP 135/67; PULSE 84; RESP 20; O2SAT 99
== END 2020-10-29 03:05 | disposition home or self-care (01) ==
PROVIDERS: Emergency Provider Emergency Medicine; Family Provider Family Medicine; PCP Family Medicine
DX: R11.2 Nausea with vomiting, unspecified (principal); R19.7 Diarrhea, unspecified
CPT/HCPCS: 36415; 80053; 81003; 85025; 96361; 96374; 99284; J2405

== ENCOUNTER → 2020-11-16 08:53 | Outpatient (CLI) | payer OTHER, MEDICAID, SELFPAY ==
[2020-11-16 09:23] LABS: COVID19 -Nasal RAPID Negative (Negative)
== END ==
PROVIDERS: Family Provider Family Medicine; PCP Family Medicine; Visit Provider Physician Assistant
DX: R05 Cough (principal); R50.9 Fever, unspecified; R53.83 Other fatigue; Z20.822 Contact with and (suspected) exposure to COVID-19
CPT/HCPCS: 87635

== ENCOUNTER → 2020-11-20 08:58 | Outpatient (CLI) | payer OTHER, MEDICAID, SELFPAY ==
[2020-11-20 09:18] LABS: COVID19 -Nasal RAPID Negative (Negative)
== END ==
PROVIDERS: Family Provider Family Medicine; PCP Family Medicine; Referring Provider Physician Assistant; Visit Provider Physician Assistant
DX: Z20.822 Contact with and (suspected) exposure to COVID-19 (principal)
CPT/HCPCS: 87635

== ENCOUNTER → 2020-11-30 10:10 | Outpatient (CLI) | payer OTHER, MEDICAID, SELFPAY ==
--- NOTE | 2020-11-30 10:13 | DI.RAD.S_ITS ---
PROCEDURE: XR CHEST 2V INDICATIONS: may have swallowed dentures in sleep (bottom plate) TECHNIQUE: 2 views of the chest were acquired. COMPARISON: [facility], CR, XR CHEST 2V, 06/15/2020, 17:15. [facility], CR, XR CHEST 1V, 01/10/2020, 20:50. FINDINGS: Surgical changes and devices: None. Lungs and pleura: Lungs are clear. No pleural effusions or pneumothorax. Mediastinum: Mediastinal contours are normal. Heart size is normal. Bones and chest wall: No suspicious bony abnormalities. Soft tissues appear unremarkable except for slight irregularity in the radiodensity overlying the paramedian upper chest, superimposed on the T2-T3 disc level. IMPRESSION: Normal for age, slight irregularity of the radiodensity overlying the T2-T3 level of the thoracic spine. Please note that plain film imaging would not accurately detect a plastic structure in this area. If metal is present in the device that is missing it should be more easily detected. Follow-up by CT scanning may be warranted. Dictated by: Shaka Griggs M.D. on 11/30/2020 at 10:41 Approved by: Shaka Griggs M.D. on 11/30/2020 at 10:43
--- NOTE | 2020-11-30 10:13 | DI.RAD.S_ITS ---
PROCEDURE: XR ABDOMEN 1V INDICATIONS: may have swallowed dentures in sleep (bottom plate) TECHNIQUE: One view of the abdomen acquired. COMPARISON: None. FINDINGS: Surgical changes and devices: None. Bowel: Bowel gas pattern is normal. Soft tissues: No suspicious abdominal calcifications. Visualized solid organ contours appear normal in size. Bones: No suspicious bony lesions. IMPRESSION: Normal for age. No foreign body seen. Please note that a relatively thin plastic structure would not be accurately detected by plain film imaging. More accurate assessment could be obtained by CT scanning. Dictated by: Shaka Griggs M.D. on 11/30/2020 at 10:44 Approved by: Shaka Griggs M.D. on 11/30/2020 at 10:44
== END ==
PROVIDERS: Family Provider Family Medicine; PCP Family Medicine; Referring Provider Student in an Organized Health Care Education/Training Program; Visit Provider Student in an Organized Health Care Education/Training Program
DX: T18.9XXA Foreign body of alimentary tract, part unspecified, initial encounter (principal)
CPT/HCPCS: 71046; 74018

== ENCOUNTER 2020-11-30 16:21 | Emergency (ER) | payer OTHER, MEDICAID, SELFPAY ==
[2020-11-30 16:26] VITALS: PULSE 97; RESP 22; TEMP 36.6; O2SAT 100
--- NOTE | 2020-11-30 16:28 | ED_ITS ---
HPI - General Adult General Chief complaint: Recheck/Abnormal Lab/Rx Stated complaint: SWALLOWED DENTURES Time Seen by Provider: 11/30/20 16:26 Source: patient Mode of arrival: Ambulatory Limitations: no limitations History of Present Illness HPI narrative: Patient is a 25-year-old female who earlier today went to the walk-in clinic for concerned that she potentially swallowed her lower dentures. An x-ray was performed. There was no metallic object seen however there was potentially a irregularity noticed on the x-ray and there was some concern that this may be a piece of plastic. Patient was sent home prior to the results of the chest x-ray. Since that time she stated that her found the lower dentures and they were intact. She was contacted by the walk-in clinic and told to come to the emergency department because of the irregularity seen on the x- ray. She denies any chest pain or shortness of breath. She is also complaining of a generalized itching after starting some psychiatric medications approximately 1 week ago. She has not tried anything for the symptoms. She also has redness on her upper abdomen in between her breasts. Related Data Home Medications Medication Instructions Recorded Confirmed pantoprazole 40 mg tablet,delayed 40 mg PO DAILY 12/12/19 11/30/20 release dicyclomine 10 mg PO PRN PRN 01/10/20 11/30/20 linaclotide 72 mcg capsule 72 mcg PO DAILY cap 07/07/20 11/30/20 albuterol sulfate 90 mcg/actuation INHALATION 11/10/20 11/30/20 aerosol inhaler Previous Rx's Medication Instructions Recorded docusate sodium 100 mg capsule 100 mg PO BID #180 cap 12/15/19 propranolol 10 mg tablet See Rx Instructions PO .COMPLEX 07/28/20 #60 tab rizatriptan 5 mg tablet 5 mg PO ONCE #20 tab 08/02/20 acyclovir 400 mg tablet 400 mg PO BID #180 tab 08/31/20 clonidine HCl 0.1 mg tablet 0.1 - 0.2 mg PO BEDTIME #60 tab 10/05/20 ondansetron 8 mg PO Q8H PRN #60 tab 10/29/20 buspirone 10 mg tablet 10 mg PO BID #60 tab 11/04/20 lamotrigine 100 mg tablet 200 mg PO DAILY #60 tab 11/04/20 albuterol sulfate 90 mcg/actuation 1 inh INHALATION QID PRN #6.7 g 11/16/20 aerosol inhaler benzonatate 100 mg capsule 100 mg PO BID-TID PRN #14 cap 11/16/20 lurasidone 20 mg tablet 20 mg PO QPM #30 tab 11/24/20 quetiapine 100 mg tablet See Rx Instructions PO BEDTIME #45 11/24/20 tab Allergies Allergy/AdvReac Type Severity Reaction Status Date / Time latex [LATEX] Allergy Unknown Verified 11/30/20 13:30 Sulfa (Sulfonamide Allergy Unknown Verified 11/30/20 13:30 Antibiotics) [SULFA (SULFONAMIDE ANTIBIOTICS)] Review of Systems Constitutional Constitutional: Denies headache(s) ENT Ears, Nose, Mouth, and Throat: Denies headache(s) Cardiovascular Cardiovascular: Denies dyspnea Respiratory Respiratory: Denies cough and Denies dyspnea Gastrointestinal Gastrointestinal: Denies abdominal pain and Denies nausea Integumentary/Breasts Skin/Breast: Reports pruritus and Reports rash Neurologic Neurologic: Reports system reviewed and no additional complaints, except as doc umented and Denies headache(s) Hematologic/Lymphatic On Anticoagulants: No Allergic/Immunologic Allergic/Immunologic: Reports system reviewed and no additional complaints, except as documented Patient History Medical History Acute bacterial bronchitis Allergies Bronchitis Chronic cough Dyspepsia Frequent UTI GERD (gastroesophageal reflux disease) History of suicide attempt Incontinence Low back strain Nausea & vomiting Nontraumatic coccydynia Personality disorder POTS (postural orthostatic tachycardia syndrome) Surgical History Anesthesia History of third molar tooth extraction History of tonsillectomy (~2012) Social History Smoking Status: Current every day smoker Smoking Status: Current every day smoker tobacco type: cigarettes Substance Use Type: does not use Exam Initial Vital Signs Initial Vital Signs: Vital Signs Temperature 97.9 F 11/30/20 16:26 Pulse Rate 97 H 11/30/20 16:26 Respiratory Rate 22 11/30/20 16:26 Pulse Oximetry 100 11/30/20 16:26 Const General: cooperative and comfortable Limitations: mental status not altered [facility] Head: normal to inspection and normocephalic Resp Effort & Inspection: normal respiratory effort Auscultation: clear to auscultation bilaterally Cardio Rate: regular rate Rhythm: regular rhythm Skin Other: Patient with a 3 cm x 1 cm area of redness on her upper abdomen rate were her bra line sits. There is no other rashes noted. Neuro General: patient alert and patient awake Cognition: normal cognition Speech: speech normal Extrem General: normal to inspection and capillary refill normal Psych Appearance: grossly normal and well kempt Course Vital Signs Vital signs: Vital Signs - 8 hr 11/30/20 16:26 11/30/20 16:29 Temperature 97.9 F Pulse Rate 97 H Respiratory Rate 22 Blood Pressure 139/70 Pulse Oximetry 100 Medical Decision Making Lab Data Lab results reviewed: Yes I reviewed the patient's lab results. Labs: Point of Care Testing Test Results Negative Point of care testing: Point of Care Testing Test Results Negative MDM Narrative Medical decision making narrative: Patient has no shortness of breath or coughing. She did find the intact dentures that she thought was missing. I feel we could hold on further workup to include a CT scan. The redness in between her breasts/upper abdomen does appear to be a yeast infection. She will use [id number] medications for this. The itching that she is having could potentially be related to her psychiatric medicines. We had a discussion regarding her options to include taking Benadryl to see if this does not improve her symptoms versus stopping her medicines talking with her doctor who prescribed them. She would like to continue the medication intake Benadryl. Patient will be discharged home she was given return precautions. She expressed understanding and agreement. Discharge Plan Departure Patient Disposition: Home Clinical Impression: Itching Instructions: DI for Itching Activity Restrictions/Additional Instructions: Recommend you continue all of your medications as directed and I recommend that you take Benadryl for itching. You can also use [id number] nystatin cream for the area on your upper abdomen. Return to the emergency department for any new or worsening symptoms Prescriptions: No Action benzonatate [Tessalon Perles] 100 mg capsule 100 mg PO BID-TID PRN (Reason: cough) Qty: 14 RF: 0 albuterol sulfate 90 mcg/actuation HFA aerosol inhaler 1 inh inhalation QID PRN (Reason: shortness of breath or wheezing) Qty: 6.7 RF: 0 quetiapine 100 mg tablet See Rx Instructions PO BEDTIME Qty: 45 RF: 0 lurasidone 20 mg tablet 20 mg PO QPM Qty: 30 RF: 0 pantoprazole [Protonix] 40 mg tablet,delayed release (DR/EC) 40 mg PO DAILY RF: 0 propranolol 10 mg tablet See Rx Instructions PO .COMPLEX Qty: 60 RF: 0 Hold Instructions: not taking lamotrigine 100 mg tablet 200 mg PO DAILY Qty: 60 RF: 2 buspirone 10 mg tablet 10 mg PO BID Qty: 60 RF: 2 docusate sodium 100 mg capsule 100 mg PO BID Qty: 180 RF: 1 Linzess 72 mcg capsule 72 mcg PO DAILY RF: 0 rizatriptan 5 mg tablet 5 mg PO ONCE Qty: 20 RF: 2 acyclovir 400 mg tablet 400 mg PO BID Qty: 180 RF: 3 clonidine HCl 0.1 mg tablet 0.1 - 0.2 mg PO BEDTIME Qty: 60 RF: 1 Hold Instructions: not taking ondansetron 8 mg tablet,disintegrating 8 mg PO Q8H PRN (Reason: nausea and vomiting) Qty: 60 RF: 0 dicyclomine 10 mg capsule 10 mg PO PRN PRN (Reason: Abdominal Discomfort) RF: 0 albuterol sulfate 90 mcg/actuation HFA aerosol inhaler inhalation RF: 0 Referrals: Max Samuels DO [Primary Care Provider] -
[2020-11-30 16:29] VITALS: BP 139/70
[2020-11-30 17:09] VITALS: PULSE 92; RESP 20; O2SAT 99
== END 2020-11-30 17:10 | disposition home or self-care (01) ==
PROVIDERS: Emergency Provider Emergency Medicine; Family Provider Family Medicine; PCP Family Medicine
DX: R21 Rash and other nonspecific skin eruption (principal); T18.9XXA Foreign body of alimentary tract, part unspecified, initial encounter
CPT/HCPCS: 71046; 74018; 81025; 99282

== ENCOUNTER → 2020-12-18 11:26 | Outpatient (CLI) | payer OTHER, MEDICAID, SELFPAY | PROVIDERS: Family Provider Family Medicine; PCP Family Medicine; Referring Provider Physician Assistant; Visit Provider Physician Assistant | DX: J31.2 Chronic pharyngitis (principal) | CPT/HCPCS: 87070 ==

== ENCOUNTER → 2020-12-23 15:07 | Outpatient (CLI) | payer OTHER, MEDICAID, SELFPAY ==
[2020-12-23 15:14] LABS: WBC Urine None Seen (0-5/HPF)
[2020-12-23 16:32] LABS: Appearance Urine UA CLOUDY; Bilirubin Urine UA NEGATIVE (NEGATIVE); Color Urine UA YELLOW; Glucose Urine UA NEGATIVE (Negative); Ketones Urine UA NEGATIVE (NEGATIVE); Leukocyte Esterase Urine UA NEGATIVE (NEGATIVE); Nitrite Urine UA NEGATIVE (Negative); Occult Blood Urine UA NEGATIVE (Negative); Protein Urine UA TRACE (Negative); Urobilinogen Urine UA 0.2 E.U./dL (0.2)
[2020-12-23 16:45] LABS: RBC Urine 0-1/HPF (0-5/HPF); Squamous Epithelial Cell Urine 1-5 /HPF (0-5/HPF); pH Urine UA 7.5 (4.5-8.0)
[2020-12-23 16:46] LABS: Bacteria Urine Occasional (0-1); Culture Indicated Urine Cult Not Indicated; Other Crystals Urine 1+ Amorphous
== END ==
PROVIDERS: Family Provider Family Medicine; PCP Family Medicine; Referring Provider Nurse Practitioner; Visit Provider Nurse Practitioner
DX: D72.829 Elevated white blood cell count, unspecified (principal)
CPT/HCPCS: 81001

== ENCOUNTER → 2020-12-28 11:41 | Outpatient (CLI) | payer OTHER, MEDICAID, SELFPAY | PROVIDERS: Family Provider Family Medicine; PCP Family Medicine; Visit Provider Physician Assistant | DX: N89.8 Other specified noninflammatory disorders of vagina (principal) | CPT/HCPCS: 87210 ==

== ENCOUNTER 2021-01-09 11:46 | Emergency (ER) | payer OTHER, MEDICAID, SELFPAY ==
[2021-01-09 12:04] VITALS: BP 136/82; PULSE 99; RESP 16; TEMP 36.4; O2SAT 99; BMI 39.8
--- NOTE | 2021-01-09 12:22 | ED.GENADULT ---
HPI - General Adult General Chief complaint: Abdominal Pain Stated complaint: LIGHT HEADED/DIZZY/UNABLE TO EAT/BLOODY STOOLS Time Seen by Provider: 01/09/21 11:48 Source: patient Mode of arrival: Ambulatory History of Present Illness HPI narrative: 25-year-old female who has had GI issues in the past. Is scheduled for colonoscopy/upper endoscopy approximately 10 days from now for these issues. States that over the past couple days she has had loose stools. Has had nausea with eating. Does have nausea medication at home and has taken it but throws up afterwards. Has had decreased oral intake. No urinary symptoms. Generalized abdominal discomfort. She contacted her GI doctor who told her that if she was concerned about the symptoms that she needs to come to the emergency department. She also called her primary doctor to called her to come in for evaluation. Related Data Home Medications Medication Instructions Recorded Confirmed pantoprazole 40 mg tablet,delayed 40 mg PO DAILY 12/12/19 12/28/20 release (Protonix) dicyclomine 10 mg capsule 10 mg PO PRN PRN 01/10/20 12/28/20 albuterol sulfate 90 mcg/actuation INHALATION 11/10/20 12/28/20 aerosol inhaler Previous Rx's Medication Instructions Recorded docusate sodium 100 mg capsule 100 mg PO BID #180 cap 12/15/19 rizatriptan 5 mg tablet 5 mg PO ONCE #20 tab 08/02/20 acyclovir 400 mg tablet 400 mg PO BID #180 tab 08/31/20 ondansetron 8 mg disintegrating 8 mg PO Q8H PRN #60 tab 10/29/20 tablet buspirone 10 mg tablet 10 mg PO BID #60 tab 11/04/20 albuterol sulfate 90 mcg/actuation 1 inh INHALATION QID PRN #6.7 g 11/16/20 aerosol inhaler benzonatate 100 mg capsule 100 mg PO BID-TID PRN #14 cap 11/16/20 (Tessalericka Andrews) hydroxyzine HCl 25 mg tablet 25 mg PO Q4-6H PRN #90 tab MDD 12/07/20 150mg lamotrigine 100 mg tablet 200 mg PO DAILY #60 tab 12/13/20 lurasidone 20 mg tablet 20 mg PO QPM #30 tab 12/28/20 Allergies Allergy/AdvReac Type Severity Reaction Status Date / Time latex [LATEX] Allergy Unknown Verified 01/09/21 12:09 Sulfa (Sulfonamide Allergy Unknown Verified 01/09/21 12:09 Antibiotics) [SULFA (SULFONAMIDE ANTIBIOTICS)] Review of Systems Constitutional Constitutional: Denies fever(s) Cardiovascular Cardiovascular: Reports as per HPI Gastrointestinal Gastrointestinal: Reports abdominal pain, Reports hematochezia, Reports cramping, Reports diarrhea, Reports nausea and Reports vomiting Genitourinary Genitourinary: Reports system reviewed and no additional complaints, except as documented Integumentary/Breasts Skin/Breast: Denies rash Neurologic Neurologic: Reports system reviewed and no additional complaints, except as documented Hematologic/Lymphatic On Anticoagulants: No Patient History Medical History Acute bacterial bronchitis Allergies Bronchitis Chronic cough Dyspepsia Frequent UTI GERD (gastroesophageal reflux disease) History of suicide attempt Incontinence Low back strain Nausea & vomiting Nontraumatic coccydynia Personality disorder POTS (postural orthostatic tachycardia syndrome) Surgical History Anesthesia History of third molar tooth extraction History of tonsillectomy (~2012) Social History Smoking Status: Current every day smoker Smoking Status: Current every day smoker tobacco type: cigarettes Substance Use Type: does not use Exam Initial Vital Signs Initial Vital Signs: Vital Signs Temperature 97.6 F 01/09/21 12:04 Pulse Rate 99 H 01/09/21 12:04 Respiratory Rate 16 01/09/21 12:04 Blood Pressure 136/82 01/09/21 12:04 Pulse Oximetry 99 01/09/21 12:04 HENMT Head: normal to inspection and normocephalic Resp Auscultation: clear to auscultation bilaterally Cardio Rate: regular rate GI Inspection: normal to inspection and non-distended Palpation: soft and tender Skin General: no rashes or lesions noted Neuro General: patient alert, patient awake, patient oriented x3 and moves all extremities Extrem General: normal to inspection and capillary refill normal Psych Appearance: grossly normal and well kempt Course Orders Ordered: ED Orders 01/09/21 12:40 Complete Blood Count AUTO DIFF Stat Comprehensive Metabolic Panel Stat Lipase Stat Test Serum,Qual Stat Vital Signs Vital signs: Vital Signs - 8 hr 01/09/21 12:04 Temperature 97.6 F Pulse Rate 99 H Respiratory Rate 16 Blood Pressure 136/82 Pulse Oximetry 99 Medical Decision Making Lab Data Lab results reviewed: Yes I reviewed the patient's lab results. Result diagrams: 01/09/21 12:40 01/09/21 12:40 Labs: Lab Results 01/09/21 01/09/21 01/09/21 Range/Units 12:40 12:40 12:40 WBC 12.9 H (4.5-11.0) X10^3/uL RBC 5.33 H (4.0-5.2) X10^6/uL Hgb 12.6 (12.0-16.0) g/dL Hct 39.7 (36-46) % MCV 74.5 L (80-100) fL MCH 23.6 L (26-34) PG MCHC 31.7 (30-36) % RDW 15.8 H (11.6-14.8) % Plt Count 238 (150-400) X10^3/uL Neut % (Auto) 65.7 (50-75) % Lymph % (Auto) 23.6 L (25-40) % [place] % (Auto) 8.2 (3-14) % Eos % (Auto) 2.0 (2-4) % Baso % (Auto) 0.5 (0-2) % Neut # (Auto) 8500 H (0717-1955) /uL Lymph # (Auto) 3000 (2271-1679) /uL [place] # (Auto) 1100 H (0-900) /uL Eos # (Auto) 300 (0-450) /uL Baso # (Auto) 100 (0-100) /uL Sodium 140 (137-145) mmol/L Potassium 3.9 (3.4-5.1) mmol/L Chloride 106 (98-107) mmol/L Carbon Dioxide 26 (22-32) mmol/L BUN 7 (7-17) mg/dL Creatinine 0.67 (0.52-1.04) mg/dL Estimated GFR > 60.0 (>60) mL/min BUN/Creatinine Ratio 10.4 (6-22) Glucose 90 (70-100) mg/dL Calcium 9.4 (8.4-10.2) mg/dL Total Bilirubin 0.4 (0.2-1.3) mg/dL AST 28 (14-36) IU/L ALT 35 H (<35) IU/L Alkaline Phosphatase 136 H (38-126) U/L Total Protein 7.0 (6.3-8.2) g/dL Albumin 4.1 (3.5-5.0) g/dL Globulin 2.9 (1.7-4.1) g/dL Albumin/Globulin Ratio 1.4 (1.0-2.8) Lipase 61 (23-300) U/L Serum , Qual Negative (Negative) Point of Care Testing Test Results Negative Urine Dip Bedside Urine Glucose Negative Bedside Urine Bilirubin - Negative Bedside Urine Ketone - Negative Urine Specific [place] 1.015 Bedside Urine Occult Blood - Negative Bedside Urine pH 8 Bedside Urine Protein - Negative Bedside Urine Urobilinogen - Negative Bedside Urine Nitrite - Negative Bedside Urine Leukocytes - Negative Esterase Point of care testing: Point of Care Testing Test Results Negative Urine Dip Bedside Urine Glucose Negative Bedside Urine Bilirubin - Negative Bedside Urine Ketone - Negative Urine Specific [place] 1.015 Bedside Urine Occult Blood - Negative Bedside Urine pH 8 Bedside Urine Protein - Negative Bedside Urine Urobilinogen - Negative Bedside Urine Nitrite - Negative Bedside Urine Leukocytes - Negative Esterase MDM Narrative Medical decision making narrative: Patient is a benign exam. Labs are unremarkable. His Oxy having blood in her stool on exam. She is already scheduled to have a colonoscopy in 10 days from now and also an upper endoscopy. I feel that we can hold on further workup for now. I would not recommend a CT scan based on her presentation today. She does have nausea medicine at home. Will discharge home with strict return precautions. She expressed understanding and agreement. Discharge Plan Departure Patient Disposition: Home Clinical Impression: Rectal bleeding Instructions: DI for Rectal Bleeding Activity Restrictions/Additional Instructions: Continue all of your medications as directed. I do recommend that you keep your scheduled medical appointments for your colonoscopy that is coming up. Return to the emergency department for any new symptoms Prescriptions: No Action benzonatate [Tessalon Perles] 100 mg capsule 100 mg PO BID-TID PRN (Reason: cough) Qty: 14 RF: 0 albuterol sulfate 90 mcg/actuation HFA aerosol inhaler 1 inh inhalation QID PRN (Reason: shortness of breath or wheezing) Qty: 6.7 RF: 0 hydroxyzine HCl 25 mg tablet 25 mg PO Q4-6H MDD 150mg PRN (Reason: itching) Qty: 90 RF: 0 lamotrigine 100 mg tablet 200 mg PO DAILY Qty: 60 RF: 2 pantoprazole [Protonix] 40 mg tablet,delayed release (DR/EC) 40 mg PO DAILY RF: 0 buspirone 10 mg tablet 10 mg PO BID Qty: 60 RF: 2 docusate sodium 100 mg capsule 100 mg PO BID Qty: 180 RF: 1 rizatriptan 5 mg tablet 5 mg PO ONCE Qty: 20 RF: 2 acyclovir 400 mg tablet 400 mg PO BID Qty: 180 RF: 3 lurasidone 20 mg tablet 20 mg PO QPM Qty: 30 RF: 1 ondansetron 8 mg tablet,disintegrating 8 mg PO Q8H PRN (Reason: nausea and vomiting) Qty: 60 RF: 0 dicyclomine 10 mg capsule 10 mg PO PRN PRN (Reason: Abdominal Discomfort) RF: 0 albuterol sulfate 90 mcg/actuation HFA aerosol inhaler inhalation RF: 0 Referrals: Max Samuels, [Primary Care Provider] -
[2021-01-09 12:52] LABS: Add Manual Diff / Slide Review NO; Basophils Absolute Auto 100 /uL (0-100); Basophils Percent Auto 0.5 % (0-2); Eosinophils Absolute Auto 300 /uL (0-450); Hematocrit 39.7 % (36-46); Hemoglobin 12.6 g/dL (12.0-16.0); Lymphocytes Absolute Auto 3000 /uL (1100-4500); Lymphocytes Percent Auto 23.6 % (25-40); Mean Corpuscular HGB Conc 31.7 % (30-36); Mean Corpuscular Hemoglobin 23.6 PG (26-34); Mean Corpuscular Volume 74.5 fL (80-100); Monocytes Absolute Auto 1100 /uL (0-900); Monocytes Percent Auto 8.2 % (3-14); Neutrophils Absolute Auto 8500 /uL (1500-7000); Neutrophils Percent Auto 65.7 % (50-75); Platelet Count 238 X10^3/uL (150-400); Red Blood Cell Count 5.33 X10^6/uL (4.0-5.2); Red Cell Distribution Width 15.8 % (11.6-14.8); White Blood Cell Count 12.9 X10^3/uL (4.5-11.0)
[2021-01-09 13:04] LABS: Alanine Aminotransferase 35 IU/L (<35); Albumin 4.1 g/dL (3.5-5.0); Albumin Globulin Ratio 1.4 (1.0-2.8); Alkaline Phosphatase 136 U/L (38-126); Aspartate Aminotransferase 28 IU/L (14-36); BUN Creatinine Ratio 10.4 (6-22); Bilirubin Total 0.4 mg/dL (0.2-1.3); Blood Urea Nitrogen 7 mg/dL (7-17); Calcium 9.4 mg/dL (8.4-10.2); Carbon Dioxide 26 mmol/L (22-32); Chloride 106 mmol/L (98-107); Estimated Glomerular Filt Rate > 60.0 mL/min (>60); Globulin 2.9 g/dL (1.7-4.1); Glucose 90 mg/dL (70-100); HEMOLYSIS < 15 (0-50); Lipase 61 U/L (23-300); Potassium 3.9 mmol/L (3.4-5.1); Pregnancy Test Serum,Qual Negative (Negative); Sodium 140 mmol/L (137-145)
[2021-01-09 13:26] VITALS: BP 121/73; PULSE 76
== END 2021-01-09 13:27 | disposition home or self-care (01) ==
PROVIDERS: Emergency Provider Emergency Medicine; Family Provider Family Medicine; PCP Family Medicine
DX: K62.5 Hemorrhage of anus and rectum (principal); R10.84 Generalized abdominal pain; R11.2 Nausea with vomiting, unspecified; R19.7 Diarrhea, unspecified
CPT/HCPCS: 36415; 80053; 81003; 81025; 83690; 84703; 85025; 99283

== ENCOUNTER → 2021-01-11 14:16 | Outpatient (CLI) | payer OTHER, MEDICAID, SELFPAY | PROVIDERS: Family Provider Family Medicine; PCP Family Medicine; Visit Provider Urology | DX: N39.0 Urinary tract infection, site not specified (principal); R30.0 Dysuria; N39.41 Urge incontinence; N20.0 Calculus of kidney | CPT/HCPCS: 81002; 87086; 99215 ==

== ENCOUNTER 2021-01-17 09:25 | Emergency (ER) | payer OTHER, MEDICAID, SELFPAY ==
[2021-01-17 09:41] VITALS: BP 153/110; PULSE 76; RESP 14; TEMP 36.7; O2SAT 99
--- NOTE | 2021-01-17 09:52 | ED_ITS ---
HPI - Back Pain/Injury General Chief Complaint: Back Pain/Injury Stated Complaint: low back pain started last night, worsening Time Seen by Provider: 01/17/21 09:52 Source: patient Limitations: no limitations History of Present Illness HPI Narrative: 25-year-old female daily smoker with history of mental health disease presents with a chief complaint of a few days of right lower back pain. She denies any specific injury. She has no fever or chills. She does not take blood thinners. She denies any numbness, tingling or weakness of her lower extremities. She denies any trouble controlling bowel or bladder. She denies any footdrop. She denies urinary frequency, urgency or dysuria. She denies any change in bowel habits. She states her pain is worse when she moves and improves with rest. She denies any extensive history of the same. Related Data Home Medications Medication Instructions Recorded Confirmed dicyclomine 10 mg capsule 20 mg PO DAILY cap 01/11/21 01/11/21 lamotrigine 200 mg tablet 200 mg PO DAILY 01/11/21 01/11/21 pantoprazole 40 mg tablet,delayed 40 mg PO BID tab 01/11/21 01/11/21 release (Protonix) Previous Rx's Medication Instructions Recorded rizatriptan 5 mg tablet 5 mg PO ONCE #20 tab 08/02/20 acyclovir 400 mg tablet 400 mg PO BID #180 tab 08/31/20 ondansetron 8 mg disintegrating 8 mg PO Q8H PRN #60 tab 10/29/20 tablet albuterol sulfate 90 mcg/actuation 1 inh INHALATION QID PRN #6.7 g 11/16/20 aerosol inhaler olanzapine 10 mg tablet 5 mg PO BEDTIME #30 tab 01/11/21 buspirone 10 mg tablet 10 mg PO BID #60 tab 01/15/21 cyclobenzaprine 10 mg tablet 10 mg PO TID PRN #14 tab 01/17/21 hydrocodone 5 mg-acetaminophen 325 1 tab PO Q4-6H PRN #10 tab 01/17/21 mg tablet ketorolac 10 mg tablet 10 mg PO Q6H PRN #14 tab 01/17/21 Allergies Allergy/AdvReac Type Severity Reaction Status Date / Time latex [LATEX] Allergy Unknown Verified 01/09/21 12:09 Sulfa (Sulfonamide Allergy Unknown Verified 01/09/21 12:09 Antibiotics) [SULFA (SULFONAMIDE ANTIBIOTICS)] Review of Systems Review of Systems Narrative: GENERAL: Denies chills, fatigue, malaise, fever, sweats. HEENT: Denies sinus pain, ear pain, sore throat, difficulty swallowing, dizziness. RESPIRATORY: Denies dyspnea, cough, wheezing, hemoptysis, sputum. CARDIOVASCULAR: Denies chest pain, palpitations, orthopnea, edema, GASTROINTESTINAL: See HPI : See HPI MUSCULOSKELETAL: See HPI SKIN: Denies rash, skin lesions, or other NEUROLOGIC: Denies weakness, headache, numbness, change in speech, confusion, seizures, incoordination. PSYCHIATRIC: No concerning psychosocial issues. 12 point review of systems is negative except for those stated above Patient History Medical History Acute bacterial bronchitis Allergies Bronchitis Chronic cough Chronic urinary tract infection Dyspepsia Dysuria Frequent UTI GERD (gastroesophageal reflux disease) History of suicide attempt Incontinence Low back strain Nausea & vomiting Nontraumatic coccydynia Personality disorder POTS (postural orthostatic tachycardia syndrome) Urge incontinence Surgical History Anesthesia History of third molar tooth extraction History of tonsillectomy (~2012) Social History marital status: number of children: 2 Smoking Status: Current every day smoker alcohol intake: never Type(s) of exercise: none Smoking Status: Current every day smoker tobacco type: cigarettes Substance Use Type: does not use Exam Narrative Exam Narrative: GENERAL: [25] year old patient appears stated age. Well- developed patient, in mild distress. HEAD: Atraumatic. Normocephalic. EYES: Pupils equal round and reactive. Extraocular motions intact. No scleral icterus. No injection or drainage. ENT: Nose without bleeding, purulent drainage. Throat without erythema, tonsillar hypertrophy or exudate. Airway patent. NECK: Trachea midline. Non tender CARDIOVASCULAR: Regular rate and rhythm without murmurs, gallops, or rubs. RESPIRATORY: Clear to auscultation. Breath sounds equal bilaterally. No wheezes, rales, or rhonchi. GASTROINTESTINAL: Abdomen soft, non-tender, nondistended. EXTREMITIES: No edema or joint tenderness. BACK: Patient has decreased range of motion in his back due to pain. He has soft tissue tenderness to palpation. There is no bony point tenderness. Patient has no signs of cauda equina such as saddle anesthesia, decreased reflexes, or foot drop. Patient has negative straight leg raising NEURO: AOx3. SKIN: No rash or erythema of visible areas Initial Vital Signs Initial Vital Signs: Vital Signs Temperature 98.1 F 01/17/21 09:41 Pulse Rate 76 01/17/21 09:41 Respiratory Rate 14 01/17/21 09:41 Blood Pressure 153/110 H 01/17/21 09:41 Pulse Oximetry 99 01/17/21 09:41 Course Orders Ordered: ED Orders 01/17/21 11:00 COVID19 -Nasal swab/Pre-Proc Stat Complete Blood Count AUTO DIFF Stat Comprehensive Metabolic Panel Stat Lipase Stat Sodium Chloride (Normal Saline 0.9%) 1,000 mls @ 1,000 mls/hr IV BOLUS ONE Stop: 01/17/21 11:59 Sodium Chloride (Normal Saline 0.9%) 1,000 mls @ 1,000 mls/hr IV BOLUS ONE Stop: 01/17/21 11:59 Vital Signs Vital signs: Vital Signs - 8 hr 01/17/21 09:41 Temperature 98.1 F Pulse Rate 76 Respiratory Rate 14 Blood Pressure 153/110 H Pulse Oximetry 99 [facility] - Back Pain/Injury Lab Data Labs: Point of Care Testing Test Results Negative Urine Dip Bedside Urine Glucose 100 mg/dl Bedside Urine Bilirubin - Negative Bedside Urine Ketone - Negative Urine Specific [place] 1.015 Bedside Urine Occult Blood - Negative Bedside Urine pH 6.0 Bedside Urine Protein - Negative Bedside Urine Urobilinogen - Negative Bedside Urine Nitrite - Negative Bedside Urine Leukocytes - Negative Esterase [facility] Narrative Medical decision making narrative: Multiple etiologies of back pain considered including; Epidural abscess, cauda equina, mass occupying lesion, and other considered Discharge Plan Departure Patient Disposition: Home Clinical Impression: Lumbar back pain Instructions: DI for Low Back Pain Activity Restrictions/Additional Instructions: *You have been diagnosed with [right-sided lumbar pain without evidence of urine infection, kidney stone or other ominous diagnosis.] *What to do: *Please continue to take your regular medications as directed. [ x] New medication prescriptions sent to your pharmacy: [ Debbi [facility]] [ ] New medication written as a paper prescription [ ] No new medications given *Please follow up with your primary care provider in 2-3 days, call for an appointment. Let them know you were seen in the Emergency Department and that we ask that you be seen in follow up. We will electronically transmit a record of today's note if your PCP is in our system *If you do not have a primary care provider please contact the [facility] Resource line at [phone]. They will ask some questions about your medical history and help get you set up with a doctor in the community. *Return to Emergency Department if you should have any new, worsening or concerning symptoms, such as [fever greater than 101 F, shaking chills, worsening pain, persistent vomiting or other bothersome symptoms] Prescriptions: New cyclobenzaprine 10 mg tablet 10 mg PO TID PRN (Reason: muscle spasm) Qty: 14 RF: 0 hydrocodone-acetaminophen 5-325 mg tablet 1 tab PO Q4-6H PRN (Reason: pain) Qty: 10 RF: 0 ketorolac 10 mg tablet 10 mg PO Q6H PRN (Reason: pain) Qty: 14 RF: 0 No Action albuterol sulfate 90 mcg/actuation HFA aerosol inhaler 1 inh inhalation QID PRN (Reason: shortness of breath or wheezing) Qty: 6.7 RF: 0 pantoprazole [Protonix] 40 mg tablet,delayed release (DR/EC) 40 mg PO BID RF: 0 olanzapine 10 mg tablet 5 mg PO BEDTIME Qty: 30 RF: 0 buspirone 10 mg tablet 10 mg PO BID Qty: 60 RF: 0 rizatriptan 5 mg tablet 5 mg PO ONCE Qty: 20 RF: 2 acyclovir 400 mg tablet 400 mg PO BID Qty: 180 RF: 3 ondansetron 8 mg tablet,disintegrating 8 mg PO Q8H PRN (Reason: nausea and vomiting) Qty: 60 RF: 0 dicyclomine 10 mg capsule 20 mg PO DAILY RF: 0 lamotrigine 200 mg tablet 200 mg PO DAILY RF: 0 Referrals: Max Samuels, [Primary Care Provider] -
[2021-01-17 11:27] LABS: Add Manual Diff / Slide Review NO; Basophils Absolute Auto 100 /uL (0-100); Basophils Percent Auto 0.6 % (0-2); Eosinophils Absolute Auto 200 /uL (0-450); Eosinophils Percent Auto 2.4 % (2-4); Hematocrit 38.7 % (36-46); Hemoglobin 12.4 g/dL (12.0-16.0); Lymphocytes Absolute Auto 2500 /uL (1100-4500); Lymphocytes Percent Auto 23.5 % (25-40); Mean Corpuscular Hemoglobin 23.8 PG (26-34); Mean Corpuscular Volume 74.3 fL (80-100); Monocytes Absolute Auto 800 /uL (0-900); Monocytes Percent Auto 7.6 % (3-14); Neutrophils Absolute Auto 6900 /uL (1500-7000); Neutrophils Percent Auto 65.9 % (50-75); Platelet Count 235 X10^3/uL (150-400); Red Blood Cell Count 5.21 X10^6/uL (4.0-5.2); Red Cell Distribution Width 15.9 % (11.6-14.8); White Blood Cell Count 10.5 X10^3/uL (4.5-11.0)
[2021-01-17 11:38] LABS: Alanine Aminotransferase 34 IU/L (<35); Albumin 3.7 g/dL (3.5-5.0); Albumin Globulin Ratio 1.3 (1.0-2.8); Alkaline Phosphatase 112 U/L (38-126); Aspartate Aminotransferase 25 IU/L (14-36); BUN Creatinine Ratio 9.4 (6-22); Bilirubin Total 0.2 mg/dL (0.2-1.3); Blood Urea Nitrogen 5 mg/dL (7-17); Calcium 9.2 mg/dL (8.4-10.2); Carbon Dioxide 24 mmol/L (22-32); Chloride 108 mmol/L (98-107); Estimated Glomerular Filt Rate > 60.0 mL/min (>60); Globulin 2.8 g/dL (1.7-4.1); Glucose 110 mg/dL (70-100); HEMOLYSIS < 15 (0-50); Lipase 71 U/L (23-300); Sodium 138 mmol/L (137-145); Total Protein 6.5 g/dL (6.3-8.2)
== END 2021-01-17 11:27 | disposition home or self-care (01) ==
PROVIDERS: Emergency Provider Emergency Medicine; Family Provider Family Medicine; PCP Family Medicine
DX: M54.5 Low back pain (principal)
CPT/HCPCS: 80053; 81003; 81025; 83690; 85025; 99282

== ENCOUNTER → 2021-01-25 12:39 | Outpatient (CLI) | payer OTHER, MEDICAID, SELFPAY ==
--- NOTE | 2021-01-25 12:41 | DI.CT.S_ITS ---
PROCEDURE: CT ABDOMEN PELVIS WO/W CON INDICATIONS: Recurrent urinary tract infections TECHNIQUE: After the administration of oral contrast, 5 mm thick sections acquired from the diaphragms to the iliac crests. After the administration of intravenous contrast, 10 minutes delayed 5 mm thick sections acquired from the diaphragms to the symphysis. 5 mm thick coronal and sagittal reformats were acquired. For radiation dose reduction, the following was used: automated exposure control, adjustment of mA and/or kV according to patient size. COMPARISON: None. FINDINGS: Image quality: Excellent. ABDOMEN: Lung bases: Lung bases are clear. Heart size is normal. Solid organs: Liver is normal in size and enhancement. Gallbladder is within normal limits. Biliary system is non-dilated. Pancreas enhances normally. Spleen is normal in size and enhancement. No adrenal nodules. Both kidneys are normal in size. 2 millimeter nonobstructing inferior left renal cortical stone. No hydronephrosis. Bowel and peritoneum: Stomach, small and large bowel loops are normal in caliber and wall thickness. Fatty mural infiltration involving the cecum, right colon and proximal transverse colon noted which is nonspecific finding, but can be related to chronic inflammatory bowel disease. No free fluid or air. Appendix is normal. Nodes and vessels: No retroperitoneal or mesenteric adenopathy by size criteria. Aorta and inferior vena are normal in caliber. Miscellaneous: Small fat containing umbilical hernia. PELVIS: Genitourinary: Bladder decompressed at the time of imaging which limits diagnostic sensitivity, however no gross abnormalities identified the urinary bladder. Uterus and adnexa are within normal limits. Miscellaneous: No inguinal hernias or adenopathy. Bones: No suspicious bony lesions. No vertebral body compression fractures. IMPRESSION: 1. 2 millimeter nonobstructing left renal cortical stone. 2. No hydronephrosis. 3. No filling defects identified in the genitourinary collecting systems. 4. No renal mass. 5. Fatty infiltration of the right colon and proximal transverse colon wall. Finding is nonspecific but can be related to sequela of inflammatory bowel disease. Recommend correlation with clinical data. Dictated by: Kristyn Hayward MD, PhD on 01/25/2021 at 16:27 Approved by: Kristyn Hayward MD, PhD on 01/25/2021 at 16:41
== END ==
PROVIDERS: Family Provider Family Medicine; PCP Family Medicine; Referring Provider Urology; Visit Provider Urology
DX: N39.0 Urinary tract infection, site not specified (principal); N20.0 Calculus of kidney
CPT/HCPCS: 74178; Q9967

== ENCOUNTER → 2021-02-09 15:02 | Outpatient (CLI) | payer OTHER, MEDICAID, SELFPAY ==
[2021-02-09 15:41] LABS: Add Manual Diff / Slide Review NO; Basophils Absolute Auto 100 /uL (0-100); Basophils Percent Auto 0.8 % (0-2); Eosinophils Absolute Auto 400 /uL (0-450); Eosinophils Percent Auto 3.8 % (2-4); Hematocrit 39.8 % (36-46); Hemoglobin 12.9 g/dL (12.0-16.0); Lymphocytes Absolute Auto 3400 /uL (1100-4500); Mean Corpuscular HGB Conc 32.4 % (30-36); Mean Corpuscular Volume 74.1 fL (80-100); Monocytes Absolute Auto 1000 /uL (0-900); Monocytes Percent Auto 8.3 % (3-14); Neutrophils Absolute Auto 6700 /uL (1500-7000); Neutrophils Percent Auto 58.1 % (50-75); Platelet Count 250 X10^3/uL (150-400); Red Blood Cell Count 5.37 X10^6/uL (4.0-5.2); Red Cell Distribution Width 16.2 % (11.6-14.8); White Blood Cell Count 11.6 X10^3/uL (4.5-11.0)
== END ==
PROVIDERS: Family Provider Family Medicine; PCP Family Medicine; Referring Provider Physician Assistant; Visit Provider Physician Assistant
DX: R19.8 Other specified symptoms and signs involving the digestive system and abdomen (principal); R93.3 Abnormal findings on diagnostic imaging of other parts of digestive tract
CPT/HCPCS: 36415; 85025

== ENCOUNTER 2021-08-07 19:18 | Emergency (ER) | payer OTHER, MEDICAID, SELFPAY ==
--- NOTE | 2021-08-07 19:25 | ED.GENADULT ---
HPI - General Adult General Chief complaint: Ear Stated complaint: Lt. ear infection Time Seen by Provider: 08/07/21 19:21 Source: patient Mode of arrival: Ambulatory Limitations: no limitations History of Present Illness HPI narrative: 26-year-old female here for evaluation of left ear pain. States his symptoms started several hours ago. No sinus congestion. No cough. Tried Tylenol and ibuprofen for the discomfort without any improvement. No sore throat. No fevers. She is concerned that she potentially has an ear infection Related Data Previous Rx's Medication Instructions Recorded ondansetron 8 mg disintegrating 8 mg PO Q8H PRN #60 tab 10/29/20 tablet albuterol sulfate 90 mcg/actuation 1 inh INHALATION QID PRN #6.7 g 04/11/21 aerosol inhaler rizatriptan 5 mg tablet 5 mg PO ONCE #20 tab 05/11/21 acyclovir 400 mg tablet 400 mg PO BID #180 tab 07/19/21 bupropion HCl 300 mg 24 hr tablet, 300 mg PO QAM #90 tab 07/19/21 extended release rizatriptan 10 mg disintegrating 10 mg PO Q2-4H PRN #10 tab MDD 3 07/22/21 tablet olanzapine 10 mg tablet 10 mg PO BEDTIME #30 tab 08/01/21 Allergies Allergy/AdvReac Type Severity Reaction Status Date / Time latex [LATEX] Allergy Unknown Verified 08/07/21 19:28 Sulfa (Sulfonamide Allergy Unknown Verified 08/07/21 19:28 Antibiotics) [SULFA (SULFONAMIDE ANTIBIOTICS)] Review of Systems Constitutional Constitutional: Reports as per HPI and Reports system reviewed and no additional complaints, except as documented ENT Ears, Nose, Mouth, and Throat: Reports system reviewed and no additional complaints, except as documented Integumentary/Breasts Skin/Breast: Reports system reviewed and no additional complaints, except as documented Hematologic/Lymphatic On Anticoagulants: No Patient History Medical History Acute bacterial bronchitis ADD (attention deficit disorder) Allergies Bronchitis Chronic cough Chronic urinary tract infection Dyspepsia Dysuria Frequent UTI GERD (gastroesophageal reflux disease) History of suicide attempt Incontinence Low back strain Nausea & vomiting Nontraumatic coccydynia Personality disorder POTS (postural orthostatic tachycardia syndrome) Tobacco abuse disorder Urge incontinence Surgical History Anesthesia History of third molar tooth extraction History of tonsillectomy (~2012) Social History marital status: number of children: 2 Smoking Status: Current every day smoker alcohol intake: never Type(s) of exercise: none Smoking Status: Current every day smoker tobacco type: cigarettes Substance Use Type: does not use Exam Initial Vital Signs Initial Vital Signs: Vital Signs Temperature 98.0 F 08/07/21 19:26 Pulse Rate 105 H 08/07/21 19:26 Respiratory Rate 16 08/07/21 19:26 Blood Pressure 144/79 H 08/07/21 19:26 Pulse Oximetry 98 08/07/21 19:26 Const General: cooperative and healthy appearing HENMT Head: normal to inspection and normocephalic Ears: TM's normal bilaterally Mouth: oral mucosae normal, oropharynx normal and moist mucous membranes Neck Lymphatic: lymphedema Skin General: no rashes or lesions noted Neuro General: patient alert and patient awake Extrem General: normal to inspection Course Vital Signs Vital signs: Vital Signs - 8 hr 08/07/21 19:26 Temperature 98.0 F Pulse Rate 105 H Respiratory Rate 16 Blood Pressure 144/79 H Pulse Oximetry 98 Medical Decision Making MDM Narrative Medical decision making narrative: Has an unremarkable exam. There is no signs of any infection. No indication for antibiotics. No indication for radiologic studies. No indication for lab work. Patient instructed to continue to take the Tylenol and ibuprofen and could potentially add a decongestant to her medication regimen. She was given return precautions and follow-up instructions. She expressed understanding and agreement. Discharge Plan Departure Patient Disposition: Home Clinical Impression: Acute ear pain Activity Restrictions/Additional Instructions: Your exam today is very reassuring there is no signs of any infection. I do not see any fluid behind her left ear drum. You can continue to take the Tylenol and ibuprofen for discomfort. You could also consider adding a decongestant or antihistamine to see if this helps. Return to the emergency department for any new symptoms. Prescriptions: No Action olanzapine 10 mg tablet 10 mg PO BEDTIME Qty: 30 3RF albuterol sulfate 90 mcg/actuation HFA aerosol inhaler 1 inh inhalation QID PRN (Reason: shortness of breath or wheezing) Qty: 6.7 3RF rizatriptan 5 mg tablet 5 mg PO ONCE Qty: 20 2RF Rx Instructions: may repeat once after at least 2 hours rizatriptan 10 mg tablet,disintegrating 10 mg PO Q2-4H MDD 3 PRN (Reason: migraine headache) Qty: 10 3RF acyclovir 400 mg tablet 400 mg PO BID Qty: 180 3RF bupropion HCl 300 mg tablet extended release 24 hr 300 mg PO QAM Qty: 90 1RF ondansetron 8 mg tablet,disintegrating 8 mg PO Q8H PRN (Reason: nausea and vomiting) Qty: 60 0RF Referrals: Max Samuels DO [Primary Care Provider] -
[2021-08-07 19:26] VITALS: BP 144/79; PULSE 105; RESP 16; TEMP 36.7; O2SAT 98; BMI 36.0
--- NOTE | 2021-08-07 19:30 | PC.NURSE ---
there is no drainage coming from ear. Tympanic membrane is in tact and opaque on her left side. No complaints on her right side.
--- NOTE | 2021-08-07 19:31 | PC.NURSE ---
patient is complaining of lightheadedness, dizzyness, both with position of head. She also complains of nausea. She denies chest pain, pressure, shortness of breathe, or blurry vision.
[2021-08-07 19:35] VITALS: PULSE 99; RESP 18; O2SAT 99
== END 2021-08-07 19:35 | disposition home or self-care (01) ==
PROVIDERS: Emergency Provider Emergency Medicine; Family Provider Family Medicine; PCP Family Medicine
DX: H92.02 Otalgia, left ear (principal)
CPT/HCPCS: 99281

== ENCOUNTER 2021-08-21 22:44 | Emergency (ER) | payer OTHER, MEDICAID, SELFPAY ==
[2021-08-21 22:54] VITALS: BP 144/84; PULSE 105; RESP 18; TEMP 36.7; O2SAT 98
--- NOTE | 2021-08-21 23:22 | PC.NURSE ---
pelvic exam done per md with specimens collected and sent to lab, pt tolerated procedure well
--- NOTE | 2021-08-22 00:25 | ED_ITS ---
HPI - Female Genitourinary General Chief complaint: Urogenital-Female Stated complaint: Blood in urine/cramping Time Seen by Provider: 08/21/21 22:57 Source: patient Mode of arrival: Ambulatory History of Present Illness HPI Narrative: 26-year-old female daily smoker with history of ADHD, chronic UTI, dysuria and kidney stones presents with a chief complaint of an episode of painless hematuria earlier. She states that she was at work and told her boss that she had just urinated blood and her boss said she needed to come to the emergency department for evaluation. She states she has urinated multiple times since and has had no ongoing blood. She denies any active dysuria, frequency or urgency but has had episodes of dysuria on and off for the past few weeks. She denies vaginal bleeding or discharge but states that she has had occasions of lower abdominal cramping off and on. She states that she is sexually active with her and no other partners. She is due to start her menses today or tomorrow Related Data Previous Rx's Medication Instructions Recorded ondansetron 8 mg disintegrating 8 mg PO Q8H PRN #60 tab 10/29/20 tablet albuterol sulfate 90 mcg/actuation 1 inh INHALATION QID PRN #6.7 g 04/11/21 aerosol inhaler rizatriptan 5 mg tablet 5 mg PO ONCE #20 tab 05/11/21 acyclovir 400 mg tablet 400 mg PO BID #180 tab 07/19/21 bupropion HCl 300 mg 24 hr tablet, 300 mg PO QAM #90 tab 07/19/21 extended release rizatriptan 10 mg disintegrating 10 mg PO Q2-4H PRN #10 tab MDD 3 07/22/21 tablet olanzapine 10 mg tablet 10 mg PO BEDTIME #30 tab 08/01/21 Allergies Allergy/AdvReac Type Severity Reaction Status Date / Time latex [LATEX] Allergy Unknown Verified 08/07/21 19:28 Sulfa (Sulfonamide Allergy Unknown Verified 08/07/21 19:28 Antibiotics) [SULFA (SULFONAMIDE ANTIBIOTICS)] Review of Systems Review of Systems Narrative: GENERAL: Denies chills, fatigue, malaise, fever, sweats. HEENT: Denies sinus pain, ear pain, sore throat, difficulty swallowing, dizziness. RESPIRATORY: Denies dyspnea, cough, wheezing, hemoptysis, sputum. CARDIOVASCULAR: Denies chest pain, palpitations, orthopnea, edema, GASTROINTESTINAL: Denies nausea, vomiting, abdominal pain, diarrhea, c onstipation, melena. : See HPI MUSCULOSKELETAL: denies weakness, joint pain, or bony pain SKIN: Denies rash, skin lesions, or other NEUROLOGIC: Denies weakness, headache, numbness, change in speech, confusion, seizures, incoordination. PSYCHIATRIC: No concerning psychosocial issues. 12 point review of systems is negative except for those stated above Patient History Medical History Acute bacterial bronchitis ADD (attention deficit disorder) Allergies Bronchitis Chronic cough Chronic urinary tract infection Dyspepsia Dysuria Frequent UTI GERD (gastroesophageal reflux disease) History of suicide attempt Incontinence Low back strain Nausea & vomiting Nontraumatic coccydynia Personality disorder POTS (postural orthostatic tachycardia syndrome) Tobacco abuse disorder Urge incontinence Surgical History Anesthesia History of third molar tooth extraction History of tonsillectomy (~2012) tobacco type: cigarettes Substance Use Type: does not use Exam Narrative Exam Narrative: GEN: AOx3 and in mild distress EYES: Pupils are equal, round, and reactive to light and accommodation. Extraoccular muscles are intact bilaterally. There is no subconjunctival hemorrhage or exudate. CHEST: Lungs are clear to auscultation bilaterally and free of wheezes, rales, or rhonchi. Heart rate is regular rhythm, there are no murmurs, clicks, rubs, or gallops. There is no chest wall tenderness. ABD: Abdomen is soft and nontender. There is no guarding or rebound. Bowel sounds are normal in all 4 quadrants. There is no mass or organomegaly. PELVIC: No bleeding or discharge, no mass. Performed with patient permission and female nursing telephone collector at the bedside EXT: Full painless ROM of all extremities with no loss of sensation or strength. SKIN: Warm, pink, and dry. No erythema or rash Initial Vital Signs Initial Vital Signs: Vital Signs Temperature 98.0 F 08/21/21 22:54 Pulse Rate 105 H 08/21/21 22:54 Respiratory Rate 18 08/21/21 22:54 Blood Pressure 144/84 H 08/21/21 22:54 Pulse Oximetry 98 08/21/21 22:54 Course Orders Ordered: ED Orders 08/21/21 23:12 Genital Culture Stat Vital Signs Vital signs: Vital Signs - 8 hr 08/21/21 22:54 Temperature 98.0 F Pulse Rate 105 H Respiratory Rate 18 Blood Pressure 144/84 H Pulse Oximetry 98 MDM - Female Genitourinary Lab Data Labs: Point of Care Testing Test Results Negative Urine Dip Bedside Urine Glucose Negative Bedside Urine Bilirubin - Negative Bedside Urine Ketone - Negative Urine Specific [place] 1.030 Bedside Urine Occult Blood - Negative Bedside Urine pH 6.0 Bedside Urine Protein - Negative Bedside Urine Urobilinogen - Negative Bedside Urine Nitrite - Negative Bedside Urine Leukocytes - Negative Esterase Discharge Plan Departure Patient Disposition: Home Clinical Impression: Dysuria, Hematuria Instructions: DI for Dysuria -- Adult Activity Restrictions/Additional Instructions: *You have been diagnosed with [hematuria resolved with occasional dysuria. Your urine sample this evening shows no sign of infection, blood or . *What to do: *Please continue to take your regular medications as directed. [ ] New medication prescriptions sent to your pharmacy: [ ] [ ] New medication written as a paper prescription [x ] No new medications given *Please follow up with your primary care provider in 2-3 days, call for an appointment. Let them know you were seen in the Emergency Department and that we ask that you be seen in follow up. We will electronically transmit a record of today's note if your PCP is in our system *If you do not have a primary care provider please contact the [facility] Resource line at [phone]. They will ask some questions about your medical history and help get you set up with a doctor in the community. *Return to Emergency Department if you should have any new, worsening or concerning symptoms, such as [fever greater than 101 F, shaking chills, worsening pain, persistent vomiting or other bothersome symptoms] Prescriptions: No Action olanzapine 10 mg tablet 10 mg PO BEDTIME Qty: 30 3RF albuterol sulfate 90 mcg/actuation HFA aerosol inhaler 1 inh inhalation QID PRN (Reason: shortness of breath or wheezing) Qty: 6.7 3RF rizatriptan 5 mg tablet 5 mg PO ONCE Qty: 20 2RF Rx Instructions: may repeat once after at least 2 hours rizatriptan 10 mg tablet,disintegrating 10 mg PO Q2-4H MDD 3 PRN (Reason: migraine headache) Qty: 10 3RF acyclovir 400 mg tablet 400 mg PO BID Qty: 180 3RF bupropion HCl 300 mg tablet extended release 24 hr 300 mg PO QAM Qty: 90 1RF ondansetron 8 mg tablet,disintegrating 8 mg PO Q8H PRN (Reason: nausea and vomiting) Qty: 60 0RF Referrals: Max Samuels, [Primary Care Provider] - Stand Alone Forms: Work Release Note
== END 2021-08-21 23:26 | disposition home or self-care (01) ==
PROVIDERS: Emergency Provider Emergency Medicine; Family Provider Family Medicine; PCP Family Medicine
DX: R31.9 Hematuria, unspecified (principal); R30.0 Dysuria
CPT/HCPCS: 81003; 81025; 87070; 87205; 99282; 99283

== ENCOUNTER 2021-08-30 11:49 | Emergency (ER) | payer OTHER, MEDICAID, SELFPAY ==
[2021-08-30 12:07] VITALS: BP 132/90; PULSE 85; RESP 14; TEMP 37.1; O2SAT 97; BMI 36.2
--- NOTE | 2021-08-30 13:38 | ED_ITS ---
HPI - Headache General Chief Complaint: Headache Stated Complaint: nausea/vomiting/migraine today Time Seen by Provider: 08/30/21 13:29 Mode of arrival: Ambulatory History of Present Illness HPI Narrative: Patient is a 26-year-old female who has a history of migraine headaches presenting today with migraine. She says she woke up with this migraine. She was vomiting no just nauseous. She is not sensitive to light or noise. No numbness tingling or weakness. She denies any fever or neck pain. She did develop some sort of rash on her back 3 days ago. Her thought it was pupils and started popping them. Slightly painful slightly pruritic. No fever no chills no spreading of rash. No neck pain. Related Data Previous Rx's Medication Instructions Recorded ondansetron 8 mg disintegrating 8 mg PO Q8H PRN #60 tab 10/29/20 tablet albuterol sulfate 90 mcg/actuation 1 inh INHALATION QID PRN #6.7 g 04/11/21 aerosol inhaler rizatriptan 5 mg tablet 5 mg PO ONCE #20 tab 05/11/21 acyclovir 400 mg tablet 400 mg PO BID #180 tab 07/19/21 rizatriptan 10 mg disintegrating 10 mg PO Q2-4H PRN #10 tab MDD 3 07/22/21 tablet olanzapine 10 mg tablet 10 mg PO BEDTIME #30 tab 08/01/21 atomoxetine 40 mg capsule 40 mg PO DAILY #30 cap 08/30/21 ketorolac 10 mg tablet 10 mg PO TID PRN #14 tab 08/30/21 Allergies Allergy/AdvReac Type Severity Reaction Status Date / Time latex [LATEX] Allergy Unknown Verified 08/30/21 12:07 Sulfa (Sulfonamide Allergy Unknown Verified 08/30/21 12:07 Antibiotics) [SULFA (SULFONAMIDE ANTIBIOTICS)] Review of Systems Review of Systems Narrative: GENERAL: Denies chills, fatigue, malaise, fever, sweats, travel HEENT: Denies sinus pain, ear pain, sore throat, difficulty swallowing, neck pain RESPIRATORY: Denies dyspnea, cough, wheezing, hemoptysis, sputum. CARDIOVASCULAR: Denies chest pain, palpitations, orthopnea, edema GASTROINTESTINAL: Denies nausea, vomiting, abdominal pain, diarrhea, constipation, melena. : Denies dysuria, frequency, incontinence, hematuria, urinary retention, flank pain. MUSCULOSKELETAL: Denies weakness, joint pain, or bony pain SKIN: See HPI NEUROLOGIC: See HPI PSYCHIATRIC: No concerning psychosocial issues. 12 point review of systems is negative except for those stated above and HPI Patient History Medical History Acute bacterial bronchitis ADD (attention deficit disorder) Allergies Bronchitis Chronic cough Chronic urinary tract infection Dyspepsia Dysuria Frequent UTI GERD (gastroesophageal reflux disease) History of suicide attempt Incontinence Low back strain Nausea & vomiting Nontraumatic coccydynia Personality disorder POTS (postural orthostatic tachycardia syndrome) Tobacco abuse disorder Urge incontinence Surgical History Anesthesia History of third molar tooth extraction History of tonsillectomy (~2012) Social History marital status: number of children: 2 Smoking Status: Current every day smoker alcohol intake: never Type(s) of exercise: none Smoking Status: Current every day smoker tobacco type: cigarettes alcohol intake frequency: holidays/special occasions only Substance Use Type: does not use Exam Initial Vital Signs Initial Vital Signs: Vital Signs Temperature 98.7 F 08/30/21 12:07 Pulse Rate 85 08/30/21 12:07 Respiratory Rate 14 08/30/21 12:07 Blood Pressure 132/90 08/30/21 12:07 Pulse Oximetry 97 08/30/21 12:07 GENERAL: Well-appearing, well-nourished and in no acute distress. HEENT: Head atraumatic,EOMI, pupils reactive, face symmetric, moist mucous membranes , negative meningeal signs CARDIOVASCULAR: Regular rate and rhythm without murmurs, rubs or gallops. RESPIRATORY: Breath sounds equal bilaterally, no wheezes rales or rhonchi. ABDOMEN: Soft, nontender. Normoactive bowel sounds all 4 quadrants. No guarding or rebound. EXTREMITIES: Normal range of motion, no clubbing or edema. Neurovascularly intact NEUROLOGICAL: Alert and oriented x4 normal gait normal speech moving all extremities SKIN: A left flank vesicular like rash but it crosses midline and goes all the way of a thoracic it is not petechial does look like pimples. No urticaria Course Orders Ordered: Discontinued Medications Sodium Chloride (Normal Saline 0.9%) 1,000 mls @ 1,000 mls/hr IV BOLUS ONE Stop: 08/30/21 14:44 Last Infusion: 08/30/21 14:57 Dose: 0 mls/hr Documented by: Admin: 08/30/21 13:52 Dose: 1,000 mls/hr Documented by: KENTRELL Ketorolac Tromethamine (Ketorolac 30 Mg/Ml Vial) 30 mg IV NOW ONE Stop: 08/30/21 13:46 Last Admin: 08/30/21 13:52 Dose: 30 mg Documented by: KENTRELL Vital Signs Vital signs: Vital Signs - 8 hr 08/30/21 12:07 08/30/21 14:17 08/30/21 14:30 Temperature 98.7 F Pulse Rate 85 80 82 Respiratory Rate 14 27 H 25 H Blood Pressure 132/90 Pulse Oximetry 97 99 99 08/30/21 14:59 Temperature Pulse Rate 80 Respiratory Rate 24 Blood Pressure 121/69 Pulse Oximetry 99 MDM - Headache Lab Data Labs: Point of Care Testing Test Results Negative Urine Dip Bedside Urine Glucose Negative Bedside Urine Bilirubin - Negative Bedside Urine Ketone - Negative Urine Specific [place] 1.010 Bedside Urine Occult Blood - Negative Bedside Urine pH 7.0 Bedside Urine Protein - Negative Bedside Urine Urobilinogen - Negative Bedside Urine Nitrite - Negative Bedside Urine Leukocytes - Negative Esterase MDM Narrative Medical decision making narrative: Patient overall appears well. She is sitting up using her phone not needing to be in a dark room. Much better after fluids and Toradol. Requesting ketorolac as a prescription. Discharge Plan Departure Patient Disposition: Home Clinical Impression: Migraines Instructions: DI for Migraine Activity Restrictions/Additional Instructions: *You have been diagnosed with migraine headache *What to do: At this time recommend resting. *Continue to take medications as directed--> SENT TO [facility] Ketorolac 10 mg every 8 hours if needed for [id number] pain do not combine with any other NSAIDs such as ibuprofen, Aleve, naproxen, Advil etc *Follow up with your primary care provider in 2-3 days or call [phone] *Return to ER if you should have increasing pain numbness tingling weakness, persistent vomiting orany new, worsening or concerning symptoms Prescriptions: New ketorolac 10 mg tablet 10 mg PO TID PRN (Reason: pain) Qty: 14 0RF No Action olanzapine 10 mg tablet 10 mg PO BEDTIME Qty: 30 3RF atomoxetine 40 mg capsule 40 mg PO DAILY Qty: 30 1RF albuterol sulfate 90 mcg/actuation HFA aerosol inhaler 1 inh inhalation QID PRN (Reason: shortness of breath or wheezing) Qty: 6.7 3RF rizatriptan 5 mg tablet 5 mg PO ONCE Qty: 20 2RF Rx Instructions: may repeat once after at least 2 hours rizatriptan 10 mg tablet,disintegrating 10 mg PO Q2-4H MDD 3 PRN (Reason: migraine headache) Qty: 10 3RF acyclovir 400 mg tablet 400 mg PO BID Qty: 180 3RF ondansetron 8 mg tablet,disintegrating 8 mg PO Q8H PRN (Reason: nausea and vomiting) Qty: 60 0RF Referrals: Max Samuels DO [Primary Care Provider] -
[2021-08-30] MEDS: KETOROLAC 30 MG/ML VIAL IV (13:52)
[2021-08-30] MEDS: SODIUM CHLORIDE 0.9% 1,000 ML 1000 ML IV (13:52)
[2021-08-30 14:17] VITALS: PULSE 80; RESP 27; O2SAT 99
[2021-08-30 14:30] VITALS: PULSE 82; RESP 25; O2SAT 99
[2021-08-30 14:59] VITALS: BP 121/69; PULSE 80; RESP 24; O2SAT 99
== END 2021-08-30 15:04 | disposition home or self-care (01) ==
PROVIDERS: Emergency Provider Emergency Medicine; Family Provider Family Medicine; PCP Family Medicine
DX: G43.909 Migraine, unspecified, not intractable, without status migrainosus (principal)
CPT/HCPCS: 36415; 81003; 81025; 96361; 96374; 99284; J1885

== ENCOUNTER → 2021-09-28 10:20 | Outpatient (CLI) | payer OTHER, MEDICAID, SELFPAY ==
[2021-09-28 12:38] LABS: HCG Quantitative /Beta subunit < 2.4 mIU/mL
== END ==
PROVIDERS: Family Provider Family Medicine; PCP Family Medicine; Referring Provider Family Medicine; Visit Provider Family Medicine
DX: N92.6 Irregular menstruation, unspecified (principal)
CPT/HCPCS: 36415; 84702

== ENCOUNTER → 2021-11-02 08:59 | Outpatient (CLI) | payer OTHER, MEDICAID, SELFPAY ==
[2021-11-02 11:10] LABS: HCG Quantitative /Beta subunit < 2.4 mIU/mL
== END ==
PROVIDERS: Family Provider Family Medicine; PCP Family Medicine; Referring Provider Family Medicine; Visit Provider Family Medicine
DX: Z32.00 Encounter for pregnancy test, result unknown (principal)
CPT/HCPCS: 36415; 84702

== ENCOUNTER 2021-12-03 13:11 | Emergency (ER) | payer OTHER, MEDICAID, SELFPAY ==
[2021-12-03 13:20] VITALS: BP 114/67; PULSE 94; RESP 15; TEMP 36.9; O2SAT 100; BMI 34.8
--- NOTE | 2021-12-03 13:40 | DI.US.S_ITS ---
PROCEDURE: US OB <= 14 WEEKS FETUS INDICATIONS: rlq abd pain,pt OUTSIDE/PRIOR DATING DATA: Last menstrual period (LMP): 10/02/2021. LMP-based estimated date of delivery (DEON): 07/09/2022. First dating scan (date and location): 12/03/2021, [facility]. Estimated date of delivery (DEON) from first dating scan: 07/21/2022. The calculations are made using the ultrasound DEON of 07/21/2022. TECHNIQUE: Real-time scanning was performed of the fetus and maternal pelvic organs, with image documentation. Endovaginal scanning was also performed to better visualize the fetus and maternal ovaries. COMPARISON: None. FINDINGS: Embryo: A single live intrauterine is seen. The measured heart rate is 140 beats per minute. The crown-rump length measures 1 cm, corresponding to an estimated gestational age of 7 weeks 1 day. It is too early for detailed anatomic assessment. A yolk sac can be seen. By visual inspection, the amount of amniotic fluid is within normal limits. No significant findings of subchorionic/perigestational hemorrhage are seen. Maternal organs: Ovaries are within normal limits, with a corpus luteum seen on the right. No appendix (either normal or abnormal) is identified on this study. IMPRESSION: No appendix (either normal or abnormal) is identified on this study. A single live intrauterine is seen. There is a 12 day discrepancy between the estimated gestational age based upon these images and the estimated gestational age based upon the given date of the last menstrual period. Please correlate with precise clinical data. We strive to produce accurate, complete, and clear reports of imaging services. To assist us in improving patient care, this report was composed using standard report templates and voice recognition software. Therefore, it may contain abnormal punctuation, insertions and/or omissions. Occasional wrong-word or sound-alike substitutions may occur. Though we review the report and make efforts to correct it, we do recommend that the report be read carefully in proper context to recognize any text inaccuracies. Dictated by: Chalino Martell M.D. on 12/03/2021 at 15:13 Approved by: Chalino Mratell M.D. on 12/03/2021 at 15:15
[2021-12-03 13:46] LABS: Add Manual Diff / Slide Review NO; Basophils Absolute Auto 100 /uL (0-100); Basophils Percent Auto 0.4 % (0-2); Eosinophils Absolute Auto 100 /uL (0-450); Eosinophils Percent Auto 0.4 % (2-4); Hematocrit 36.6 % (36-46); Hemoglobin 12.3 g/dL (12.0-16.0); Lymphocytes Absolute Auto 3300 /uL (1100-4500); Lymphocytes Percent Auto 24.7 % (25-40); Mean Corpuscular HGB Conc 33.6 % (30-36); Mean Corpuscular Hemoglobin 25.6 PG (26-34); Mean Corpuscular Volume 76.3 fL (80-100); Monocytes Absolute Auto 1000 /uL (0-900); Monocytes Percent Auto 7.4 % (3-14); Neutrophils Absolute Auto 8800 /uL (1500-7000); Neutrophils Percent Auto 67.1 % (50-75); Platelet Count 207 X10^3/uL (150-400); Red Blood Cell Count 4.79 X10^6/uL (4.0-5.2); Red Cell Distribution Width 14.3 % (11.6-14.8); White Blood Cell Count 13.2 X10^3/uL (4.5-11.0)
[2021-12-03 13:57] LABS: Alanine Aminotransferase 20 IU/L (<35); Albumin 3.9 g/dL (3.5-5.0); Albumin Globulin Ratio 1.4 (1.0-2.8); Alkaline Phosphatase 81 U/L (38-126); Aspartate Aminotransferase 22 IU/L (14-36); Bilirubin Total 0.4 mg/dL (0.2-1.3); Blood Urea Nitrogen 7 mg/dL (7-17); Calcium 8.6 mg/dL (8.4-10.2); Carbon Dioxide 23 mmol/L (22-32); Chloride 106 mmol/L (98-107); Estimated Glomerular Filt Rate > 60 mL/min (>60); Globulin 2.7 g/dL (1.7-4.1); Glucose 84 mg/dL (70-100); HEMOLYSIS < 15 (0-50); Lipase 49 U/L (23-300); Potassium 3.5 mmol/L (3.4-5.1); Sodium 137 mmol/L (137-145); Total Protein 6.6 g/dL (6.3-8.2)
--- NOTE | 2021-12-03 14:19 | ED.FEMALEGU ---
HPI - Female Genitourinary General Chief complaint: Abdominal Pain Stated complaint: sharp pain right side Time Seen by Provider: 12/03/21 13:47 Source: patient Mode of arrival: Ambulatory Limitations: no limitations History of Present Illness HPI Narrative: This is a 26-year-old with prior vaginal deliveries who presents with last menstrual period around October 02. Patient states she was seen at [facility] for with right lower quadrant pain which has been persistent for the past month. She denies fevers or chills. She has had nausea, she has had vomiting when she takes her vitamins that were prescribed but not otherwise, she denies diarrhea she has had some constipation but stooling. No black or bloody stools. No dysuria, urgency occasional frequency. No vaginal bleeding or discharge. Patient states that she had ultrasound, she was told to have a follow-up ultrasound but has not because of insurance issues but is scheduled for 1 this coming week and is establishing with Dr. Muir for her care. She does take Risperdal for daily medication, she states she plans to take a prescription for folic acid once payday allows her to obtain this. Patient has been taking Tylenol and naproxen as needed and states she was told she could take this until she is 20 weeks . She does continue to use tobacco she states she is trying to cut down but has not stopped. She denies alcohol or illicit. Related Data Previous Rx's Medication Instructions Recorded acyclovir 400 mg tablet 400 mg PO BID #180 tabs 07/19/21 risperidone 0.5 mg tablet 0.5 mg PO BID #60 tabs 10/06/21 albuterol sulfate 90 mcg/actuation 1 inh inhalation QID PRN shortness 10/26/21 aerosol inhaler of breath or wheezing #6.7 grams prenat.vits,sha,lqz-pqms-oasuc 1 tab PO DAILY #30 tabs 11/22/21 ondansetron 8 mg disintegrating 8 mg PO Q8H PRN nausea and 11/30/21 tablet vomiting #30 tabs ferrous sulfate 325 mg (65 mg 325 mg PO DAILY #30 tabs 12/01/21 iron) tablet folic acid 800 mcg tablet 0.8 mg PO DAILY #90 tabs 12/01/21 Allergies Allergy/AdvReac Type Severity Reaction Status Date / Time latex [LATEX] Allergy Mild Rash Verified 12/03/21 13:27 Sulfa (Sulfonamide Allergy Mild Swelling Verified 12/03/21 13:27 Antibiotics) of the Eye [SULFA (SULFONAMIDE ANTIBIOTICS)] Review of Systems Review of Systems ROS Unobtainable: All systems reviewed & are unremarkable except as noted in HPI and below Patient History Medical History Acute bacterial bronchitis ADD (attention deficit disorder) Allergies Anemia affecting Bronchitis Chronic cough Chronic urinary tract infection Dyspepsia Dysuria Frequent UTI GERD (gastroesophageal reflux disease) Headache History of suicide attempt Hyperemesis gravidarum Incontinence Low back strain Nausea & vomiting Nontraumatic coccydynia Personality disorder POTS (postural orthostatic tachycardia syndrome) Tobacco abuse disorder Urge incontinence Surgical History Anesthesia History of cholecystectomy History of third molar tooth extraction History of tonsillectomy (~2012) Family History Grandmother Diabetes mellitus Pacemaker Grandmother Diabetes mellitus tobacco type: cigarettes alcohol intake frequency: holidays/special occasions only Substance Use Type: does not use Exam Narrative Exam Narrative: GENERAL: Alert and oriented x three, female in mild distress. HEENT: Head normocephalic, atraumatic, EOMI, pupils reactive, face symmetric, moist mucous membranes NECK: Supple, full range of motion CARDIOVASCULAR: Regular rate and rhythm without murmurs, rubs or gallops. RESPIRATORY: Breath sounds equal bilaterally, no wheezes rales or rhonchi. ABDOMEN: Soft, positive for right sided tenderness. Normoactive bowel sounds all 4 quadrants. No guarding or rebound, rigidity, no mass. No hernia. : No CVA tenderness EXTREMITIES: Normal range of motion, no clubbing or edema. Neurovascularly intact NEUROLOGICAL: Cranial nerves II through XII grossly intact. Moving all extremities SKIN: Warm, dry, no petechiae, no rashes or lesions. Initial Vital Signs Initial Vital Signs: Vital Signs Temperature 98.5 F 12/03/21 13:20 Pulse Rate 94 H 12/03/21 13:20 Respiratory Rate 15 12/03/21 13:20 Blood Pressure 114/67 12/03/21 13:20 Pulse Oximetry 100 12/03/21 13:20 Oxygen Delivery Method 12/03/21 13:20 Course Orders Ordered: ED Orders 12/03/21 13:40 US OB <= 14 weeks fetus Stat Complete Blood Count AUTO DIFF Stat Comprehensive Metabolic Panel Stat HCG Quantitative /Beta subunit Stat Lipase Stat 12/03/21 13:47 ABO RH Type Stat Vital Signs Vital signs: Vital Signs - 8 hr 12/03/21 13:20 12/03/21 16:05 Temperature 98.5 F Pulse Rate 94 H 81 Respiratory Rate 15 16 Blood Pressure 114/67 116/74 Pulse Oximetry 100 97 Oxygen Delivery Method Room Air Room Air MDM - Female Genitourinary Lab Data Result diagrams: 12/03/21 13:40 12/03/21 13:40 Labs: Lab Results 12/03/21 12/03/21 12/03/21 Range/Units 13:40 13:40 13:40 WBC 13.2 H (4.5-11.0) X10^3/uL RBC 4.79 (4.0-5.2) X10^6/uL Hgb 12.3 (12.0-16.0) g/dL Hct 36.6 (36-46) % MCV 76.3 L (80-100) fL MCH 25.6 L (26-34) PG MCHC 33.6 (30-36) % RDW 14.3 (11.6-14.8) % Plt Count 207 (150-400) X10^3/uL Neut % (Auto) 67.1 (50-75) % Lymph % (Auto) 24.7 L (25-40) % [place] % (Auto) 7.4 (3-14) % Eos % (Auto) 0.4 L (2-4) % Baso % (Auto) 0.4 (0-2) % Neut # (Auto) 8800 H (4733-8963) /uL Lymph # (Auto) 3300 (8675-0676) /uL [place] # (Auto) 1000 H (0-900) /uL Eos # (Auto) 100 (0-450) /uL Baso # (Auto) 100 (0-100) /uL Sodium 137 (137-145) mmol/L Potassium 3.5 (3.4-5.1) mmol/L Chloride 106 (98-107) mmol/L Carbon Dioxide 23 (22-32) mmol/L BUN 7 (7-17) mg/dL Creatinine 0.50 L (0.52-1.04) mg/dL Estimated GFR > 60 (>60) mL/min BUN/Creatinine Ratio 14.0 (6-22) Glucose 84 (70-100) mg/dL Calcium 8.6 (8.4-10.2) mg/dL Total Bilirubin 0.4 (0.2-1.3) mg/dL AST 22 (14-36) IU/L ALT 20 (<35) IU/L Alkaline Phosphatase 81 (38-126) U/L Total Protein 6.6 (6.3-8.2) g/dL Albumin 3.9 (3.5-5.0) g/dL Globulin 2.7 (1.7-4.1) g/dL Albumin/Globulin Ratio 1.4 (1.0-2.8) Lipase 49 (23-300) U/L HCG, Quant 32386 mIU/mL Blood Type 12/03/21 Range/Units 13:47 WBC (4.5-11.0) X10^3/uL RBC (4.0-5.2) X10^6/uL Hgb (12.0-16.0) g/dL Hct (36-46) % MCV (80-100) fL MCH (26-34) PG MCHC (30-36) % RDW (11.6-14.8) % Plt Count (150-400) X10^3/uL Neut % (Auto) (50-75) % Lymph % (Auto) (25-40) % [place] % (Auto) (3-14) % Eos % (Auto) (2-4) % Baso % (Auto) (0-2) % Neut # (Auto) (7075-1803) /uL Lymph # (Auto) (7275-0536) /uL [place] # (Auto) (0-900) /uL Eos # (Auto) (0-450) /uL Baso # (Auto) (0-100) /uL Sodium (137-145) mmol/L Potassium (3.4-5.1) mmol/L Chloride (98-107) mmol/L Carbon Dioxide (22-32) mmol/L BUN (7-17) mg/dL Creatinine (0.52-1.04) mg/dL Estimated GFR (>60) mL/min BUN/Creatinine Ratio (6-22) Glucose (70-100) mg/dL Calcium (8.4-10.2) mg/dL Total Bilirubin (0.2-1.3) mg/dL AST (14-36) IU/L ALT (<35) IU/L Alkaline Phosphatase (38-126) U/L Total Protein (6.3-8.2) g/dL Albumin (3.5-5.0) g/dL Globulin (1.7-4.1) g/dL Albumin/Globulin Ratio (1.0-2.8) Lipase (23-300) U/L HCG, Quant mIU/mL Blood Type A Positive Point of Care Testing Test Results Positive Urine Dip Bedside Urine Glucose Negative Bedside Urine Bilirubin - Negative Bedside Urine Ketone - Negative Urine Specific [place] 1.020 Bedside Urine Occult Blood - Negative Bedside Urine pH 6.0 Bedside Urine Protein - Negative Bedside Urine Urobilinogen 0.2 Bedside Urine Nitrite - Negative Bedside Urine Leukocytes - Negative Esterase Imaging Data US - OB: Radiologist's Impression: [address] [id number] ReportSigned Patient: Sol Leon NMR#: [id number]: 1995Acct:[id number]/Sex: 26 / FDate of Service: 12/03/21Loc: EDAccession Number: [id number]? ? Procedure: US OB <= 14 weeks fetus Ordering Provider: Saskia Sepulveda D.O. PROCEDURE:? US OB <= 14 WEEKS FETUS ? INDICATIONS:? rlq abd pain,pt ? OUTSIDE/PRIOR DATING DATA:? Last menstrual period (LMP):? 10/02/2021.? LMP-based estimated date of delivery (DEON):? 07/09/2022.? First dating scan (date and location):? 12/03/2021, [facility].? Estimated date of delivery (DEON) from first dating scan:? 07/21/2022. The calculations are made using the ultrasound DEON of 07/21/2022. ? TECHNIQUE:? Real-time scanning was performed of the fetus and maternal pelvic organs, with image documentation.? Endovaginal scanning was also performed to better visualize the fetus and maternal ovaries.? ? COMPARISON:? None. ? FINDINGS:? ? Embryo:? A single live intrauterine is seen. The measured heart rate is 140 beats per minute. The crown-rump length measures 1 cm, corresponding to an estimated gestational age of 7 weeks 1 day.? It is too early for detailed anatomic assessment.? A yolk sac can be seen.? By visual inspection, the amount of amniotic fluid is within normal limits. No significant findings of subchorionic/perigestational hemorrhage are seen.? ? Maternal organs:? Ovaries are within normal limits, with a corpus luteum seen on the right. ? No appendix (either normal or abnormal) is identified on this study.? IMPRESSION:? No appendix (either normal or abnormal) is identified on this study. ? A single live intrauterine is seen.?? ? There is a 12 day discrepancy between the estimated gestational age based upon these images and the estimated gestational age based upon the given date of the last menstrual period.? Please correlate with precise clinical data.? ? We strive to produce accurate, complete, and clear reports of imaging services. To assist us in improving patient care, this report was composed using standard report templates and voice recognition software. Therefore, it may contain abnormal punctuation, insertions and/or omissions. Occasional wrong-word or sound-alike substitutions may occur. Though we review the report and make efforts to correct it, we do recommend that the report be read carefully in proper context to recognize any text inaccuracies. ? Dictated by: Chalino Martell M.D. on 12/03/2021 at 15:13? ?? Approved by: Chalino Martell M.D. on 12/03/2021 at 15:15?? MDM Narrative Medical decision making narrative: This is a 26-year-old female is a found to be at 7 weeks 1 day on ultrasound today and had prior ultrasound on November 18 which was found to be 5 weeks and 0 days which correlates to 6 weeks 6 days today verses 7 weeks 1 day by today's ultrasound. Patient's hCG was 1862 and today is 33,000. Patient has had persistent right lower quadrant pain with no signs of ectopic on ultrasound, she is mildly tender but no rebound rigidity or guarding with a month of symptoms that has not been rapidly worsening making my suspicion for appendicitis quite low, kidney stone and pyelonephritis is unlikely or other acute intra-abdominal emergency at this time and further imaging was not obtained. Patient has not had any vaginal bleeding. She has a mildly elevated white count, normal CMP and is A positive on her blood typing today. Patient has follow-up in the next week with Dr. Muir our local OBGYN. We did discuss tobacco cessation. Patient has been taking Tylenol and naproxen as needed for pain. She was counseled that she can take naproxen prior to 20 weeks gestation. Discharge Plan Departure Patient Disposition: Home Clinical Impression: Abdominal pain affecting Instructions: DI for -- Discomforts and Remedies Activity Restrictions/Additional Instructions: Follow up with Dr. Muir for your care. I do recommend that you stop smoking. You may try alternative vitamins or gummies over the counter if the ones that you have been prescribed make you feel increasingly nauseated/vomit Your ultrasound today shows that you approximately 7 weeks and 1 day. Your urine does not show any signs of infection, your labs show a mildly elevated white count but no other major changes and her hCG level today is 33,412. Please return for worsening fevers, abdominal pain, persistent vomiting, black or bloody stools, passing out or other new or concerning symptoms. Prescriptions: No Action risperidone 0.5 mg tablet 0.5 mg PO BID Qty: 60 3RF albuterol sulfate 90 mcg/actuation HFA aerosol inhaler 1 inh inhalation QID PRN (Reason: shortness of breath or wheezing) Qty: 6.7 3RF prenat.vits,sha,[id number]-uios-srosu Tablet 1 tab PO DAILY Qty: 30 9RF folic acid 800 mcg tablet 0.8 mg PO DAILY Qty: 90 3RF ferrous sulfate 325 mg (65 mg iron) tablet 325 mg PO DAILY Qty: 30 3RF acyclovir 400 mg tablet 400 mg PO BID Qty: 180 3RF ondansetron 8 mg tablet,disintegrating 8 mg PO Q8H PRN (Reason: nausea and vomiting) Qty: 30 0RF Referrals: Max Samuels DO [Primary Care Provider] - Visit Report Forms: Patient Portal/API
[2021-12-03 15:19] LABS: HCG Quantitative /Beta subunit 33412 mIU/mL
--- NOTE | 2021-12-03 15:22 | PC.NURSE ---
Pt states she is between 5-7 wks . Uncertain of LMP. C/O LRQ pain x 2 weeks. States she's been to [place] [facility] at least 2x for same issue and they did not help me.
[2021-12-03 16:05] VITALS: BP 116/74; PULSE 81; RESP 16; O2SAT 97
== END 2021-12-03 16:06 | disposition home or self-care (01) ==
PROVIDERS: Emergency Provider Emergency Medicine; Family Provider Family Medicine; PCP Family Medicine
DX: O26.891 Other specified pregnancy related conditions, first trimester (principal); R10.9 Unspecified abdominal pain; Z3A.01 Less than 8 weeks gestation of pregnancy
CPT/HCPCS: 36415; 76801; 76817; 80053; 81003; 81025; 83690; 84702; 85025; 86900; 86901; 99283

== ENCOUNTER 2021-12-13 16:13 | Emergency (ER) | payer OTHER, MEDICAID, SELFPAY ==
[2021-12-13 16:16] VITALS: BP 120/73; PULSE 88; RESP 22; TEMP 36.7; O2SAT 98
== END 2021-12-13 18:30 | disposition left against medical advice (07) ==
PROVIDERS: Emergency Provider Emergency Medicine; Family Provider Family Medicine; PCP Family Medicine
DX: M54.9 Dorsalgia, unspecified (principal)
CPT/HCPCS: 81003; 81025; 99282

== ENCOUNTER → 2021-12-23 09:16 | Outpatient (CLI) | payer OTHER, MEDICAID, SELFPAY ==
[2021-12-23 10:30] LABS: Add Manual Diff / Slide Review NO; Basophils Absolute Auto 0 /uL (0-100); Basophils Percent Auto 0.3 % (0-2); Eosinophils Absolute Auto 100 /uL (0-450); Eosinophils Percent Auto 0.8 % (2-4); Hemoglobin 12.7 g/dL (12.0-16.0); Lymphocytes Absolute Auto 2500 /uL (1100-4500); Lymphocytes Percent Auto 23.2 % (25-40); Mean Corpuscular HGB Conc 33.5 % (30-36); Mean Corpuscular Hemoglobin 25.7 PG (26-34); Mean Corpuscular Volume 76.8 fL (80-100); Monocytes Absolute Auto 700 /uL (0-900); Neutrophils Absolute Auto 7300 /uL (1500-7000); Neutrophils Percent Auto 68.7 % (50-75); Platelet Count 211 X10^3/uL (150-400); Red Blood Cell Count 4.94 X10^6/uL (4.0-5.2); Red Cell Distribution Width 14.1 % (11.6-14.8); White Blood Cell Count 10.7 X10^3/uL (4.5-11.0)
[2021-12-23 11:27] LABS: Hepatitis B Surface Antigen NEGATIVE s/c (NEGATIVE); Rubella Antibody IgG 19.6 IU/mL (>15)
[2021-12-23 11:42] LABS: HIV 1 & 2 Ab/Ag 4th Gen Combo NEGATIVE (NEGATIVE); Hep C Virus Ab w/Reflex Quant NEGATIVE s/c (NEGATIVE)
[2021-12-24 07:37] LABS: RPR Screen Non Reactive (Non Reactive)
[2021-12-24 09:08] LABS: Varicella IgG Antibody 517 index (Immune >165)
== END ==
PROVIDERS: Obstetrics & Gynecology; Family Provider Family Medicine; PCP Family Medicine; Referring Provider Obstetrics & Gynecology; Visit Provider Obstetrics & Gynecology
DX: Z34.81 Encounter for supervision of other normal pregnancy, first trimester (principal)
CPT/HCPCS: 36415; 80055; 86787; 86803; 86850; 86900; 86901; 87389

== ENCOUNTER 2022-01-17 17:39 | Emergency (ER) | payer OTHER, MEDICAID, SELFPAY ==
[2022-01-17] VITALS (7 sets, daily range): BP systolic 104–118; BP diastolic 60–75; PULSE 77–97; RESP 20; O2SAT 97–100; BMI 34.3
[2022-01-17 19:03] LABS: Add Manual Diff / Slide Review NO; Basophils Absolute Auto 0 /uL (0-100); Basophils Percent Auto 0.3 % (0-2); Eosinophils Absolute Auto 100 /uL (0-450); Eosinophils Percent Auto 0.4 % (2-4); Hematocrit 35.3 % (36-46); Hemoglobin 11.8 g/dL (12.0-16.0); Lymphocytes Absolute Auto 3000 /uL (1100-4500); Lymphocytes Percent Auto 20.5 % (25-40); Mean Corpuscular HGB Conc 33.5 % (30-36); Mean Corpuscular Hemoglobin 25.6 PG (26-34); Mean Corpuscular Volume 76.4 fL (80-100); Monocytes Absolute Auto 1000 /uL (0-900); Monocytes Percent Auto 6.8 % (3-14); Neutrophils Absolute Auto 10500 /uL (1500-7000); Platelet Count 204 X10^3/uL (150-400); Red Blood Cell Count 4.62 X10^6/uL (4.0-5.2); Red Cell Distribution Width 14.4 % (11.6-14.8); White Blood Cell Count 14.6 X10^3/uL (4.5-11.0)
[2022-01-17 19:05] LABS: COVID19 -Nasal RAPID Negative (Negative)
--- NOTE | 2022-01-17 19:27 | PC.NURSE ---
pt states she is 14weeks and is being seen by Dr. Lamar. she has been getting dizzy with standing lately and states Dr. Lamar wanted her to come in for IV fluids. 30 min after standing she is dizzy and develops a headache. she is unclear on how long this has been going on. took 1000mg of tylenol at 1600
[2022-01-17] MEDS: PANTOPRAZOLE 40 MG VIAL IV (19:37)
[2022-01-17] MEDS: SODIUM CHLORIDE 0.9% 1,000 ML 1000 ML IV (19:37)
[2022-01-17] MEDS: ONDANSETRON 4 MG/2 ML INJ IV (19:37)
[2022-01-17 19:41] LABS: Alanine Aminotransferase 14 IU/L (<35); Albumin 3.7 g/dL (3.5-5.0); Albumin Globulin Ratio 1.4 (1.0-2.8); Alkaline Phosphatase 79 U/L (38-126); Aspartate Aminotransferase 20 IU/L (14-36); BUN Creatinine Ratio 18.4 (6-22); Bilirubin Total 0.2 mg/dL (0.2-1.3); Blood Urea Nitrogen 9 mg/dL (7-17); Calcium 9.1 mg/dL (8.4-10.2); Carbon Dioxide 21 mmol/L (22-32); Chloride 104 mmol/L (98-107); Estimated Glomerular Filt Rate > 60 mL/min (>60); Globulin 2.7 g/dL (1.7-4.1); Glucose 105 mg/dL (70-100); HEMOLYSIS < 15 (0-50); Potassium 3.7 mmol/L (3.4-5.1); Sodium 135 mmol/L (137-145); Total Protein 6.4 g/dL (6.3-8.2)
[2022-01-17 19:44] LABS: Ketones (Beta-Hydroxybutyrate) 0.11 mmol/L (<0.27)
--- NOTE | 2022-01-17 20:14 | ED.NAVMDI ---
HPI - Nausea/Vomiting/Diarrhea General Chief complaint: Dizziness Stated complaint: 14 weeks , sent for fluids Time Seen by Provider: 01/17/22 18:49 Source: patient Mode of arrival: Wheelchair History of Present Illness HPI Narrative: 26-year-old female daily smoker is a at about 14 weeks and was sent here by her OB provider for fluids. She states that she is felt a bit nauseated and vomited once earlier today and feels a bit weak. She did discuss with her OB provider and was sent here for evaluation. She denies any headache or blurred vision has had no chest pain or shortness of breath. She denies any abdominal pain, leakage of fluid, dysuria, frequency or urgency. Related Data Previous Rx's Medication Instructions Recorded acyclovir 400 mg tablet 400 mg PO BID #180 tabs 07/19/21 albuterol sulfate 90 mcg/actuation 1 inh inhalation QID PRN shortness 10/26/21 aerosol inhaler of breath or wheezing #6.7 grams prenat.vits,sha,[id number]-[id number] 1 tab PO DAILY #30 tabs 11/22/21 ferrous sulfate 325 mg (65 mg 325 mg PO DAILY #30 tabs 12/01/21 iron) tablet folic acid 800 mcg tablet 0.8 mg PO DAILY #90 tabs 12/01/21 ondansetron 4 mg disintegrating 4 mg PO Q6H PRN nausea and 12/28/21 tablet vomiting #20 tabs risperidone 3 mg tablet 3 mg PO BEDTIME #30 tabs 01/02/22 risperidone microspheres 12.5 mg/2 12.5 mg (2 mL) IM Q14D #1 ea 01/06/22 mL intramuscular susp,ext releas oxycodone 5 mg tablet 5 mg PO Q8H PRN pain #14 tabs 01/10/22 Allergies Allergy/AdvReac Type Severity Reaction Status Date / Time latex [LATEX] Allergy Mild Rash Verified 12/23/21 08:41 Sulfa (Sulfonamide Allergy Mild Swelling Verified 12/23/21 08:41 Antibiotics) of the Eye [SULFA (SULFONAMIDE ANTIBIOTICS)] Review of Systems Review of Systems Narrative: GENERAL: Denies chills, fatigue, malaise, fever, sweats. HEENT: Denies sinus pain, ear pain, sore throat, difficulty swallowing, dizziness. RESPIRATORY: Denies dyspnea, cough, wheezing, hemoptysis, sputum. CARDIOVASCULAR: Denies chest pain, palpitations, orthopnea, edema, GASTROINTESTINAL: Denies nausea, vomiting, abdominal pain, diarrhea, constipation, melena. : Denies dysuria, frequency, incontinence, hematuria, urinary retention. MUSCULOSKELETAL: denies weakness, joint pain, or bony pain SKIN: Denies rash, skin lesions, or other NEUROLOGIC: Denies weakness, headache, numbness, change in speech, confusion, seizures, incoordination. PSYCHIATRIC: No concerning psychosocial issues. 12 point review of systems is negative except for those stated above Patient History Medical History Acute bacterial bronchitis ADD (attention deficit disorder) Allergies Anemia affecting Bronchitis Chronic cough Chronic urinary tract infection Dyspepsia Dysuria Frequent UTI GERD (gastroesophageal reflux disease) Headache History of suicide attempt Hyperemesis gravidarum Incontinence Low back strain Nausea & vomiting Nontraumatic coccydynia Personality disorder POTS (postural orthostatic tachycardia syndrome) Tobacco abuse disorder Urge incontinence Surgical History Anesthesia History of cholecystectomy History of third molar tooth extraction History of tonsillectomy (~2012) Family History Grandmother Diabetes mellitus Pacemaker Grandmother Diabetes mellitus Social History marital status: number of children: 1 (2 live births, gave up first child to adoption) household members: spouse, family ('s grandmother) and children lives independently: Yes housing: other (mobile home) pets and animals: Yes (6 cats, 1 dog, 2 birds) education level: high school occupational status: employed current occupational exposures/hazards: No special mary needs: No seatbelt use: always water heater temp set < 120 deg: Yes working smoke detector in home: Yes fire extinguisher in home: Yes carbon monox detector in home: Yes firearms in home: Yes do you feel safe at home: Yes Smoking Status: Current every day smoker Tobacco: How many years used: 2 second hand exposure: No alcohol intake: former substance use type: marijuana (Previously, no longer) during the past year weight has: decreased > 10 lbs (~20 lb, not intentional) well-balanced diet: about half the time daily servings fruits/ve-4 caffeine: Yes (NOS energy drinks and Red Bull spritzers; counseled to stop) Type(s) of exercise: none and walking (~2 miles/day at work) Smoking Status: Current every day smoker tobacco type: cigarettes alcohol intake frequency: holidays/special occasions only Substance Use Type: marijuana Exam Initial Vital Signs Initial Vital Signs: Vital Signs Pulse Rate 97 H 01/17/22 18:06 Respiratory Rate 20 01/17/22 18:06 Blood Pressure 118/60 01/17/22 18:06 Pulse Oximetry 99 01/17/22 18:06 Oxygen Delivery Method 01/17/22 18:06 Course Orders Ordered: Discontinued Medications Sodium Chloride (Normal Saline 0.9%) 1,000 mls @ 1,000 mls/hr IV BOLUS ONE Stop: 01/17/22 19:48 Last Infusion: 01/17/22 21:12 Dose: 0 mls/hr Documented By: Admin: 01/17/22 19:37 Dose: 1,000 mls/hr Documented By: KERI Ondansetron HCl (Ondansetron 4 Mg/2 Ml Inj) 4 mg IV NOW ONE Stop: 01/17/22 18:50 Last Admin: 01/17/22 19:37 Dose: 4 mg Documented By: KERI Ondansetron HCl (Ondansetron 4 Mg Odt Prepack) 1 bottle MISC SEEINSTR ONE Stop: 01/17/22 21:13 Last Admin: 01/17/22 21:30 Dose: 1 bottle Documented By: KERI Pantoprazole Sodium (Pantoprazole 40 Mg Vial) 40 mg IV NOW ONE Stop: 01/17/22 18:50 Last Admin: 01/17/22 19:37 Dose: 40 mg Documented By: KERI Vital Signs Vital signs: Vital Signs - 8 hr 01/17/22 18:06 01/17/22 19:20 01/17/22 19:22 Pulse Rate 97 H 83 89 Respiratory Rate 20 Blood Pressure 118/60 Pulse Oximetry 99 98 98 Oxygen Delivery Method Room Air 01/17/22 19:22 01/17/22 19:30 Pulse Rate 77 Respiratory Rate Blood Pressure 116/75 Pulse Oximetry 98 Oxygen Delivery Method MDM - Nausea/Vomiting/Diarrhea Lab Data Result diagrams: 01/17/22 18:49 01/17/22 18:17 Labs: Lab Results 01/17/22 01/17/22 01/17/22 Range/Units 18:10 18:17 18:49 WBC 14.6 H (4.5-11.0) X10^3/uL RBC 4.62 (4.0-5.2) X10^6/uL Hgb 11.8 L (12.0-16.0) g/dL Hct 35.3 L (36-46) % MCV 76.4 L (80-100) fL MCH 25.6 L (26-34) PG MCHC 33.5 (30-36) % RDW 14.4 (11.6-14.8) % Plt Count 204 (150-400) X10^3/uL Neut % (Auto) 72.0 (50-75) % Lymph % (Auto) 20.5 L (25-40) % [place] % (Auto) 6.8 (3-14) % Eos % (Auto) 0.4 L (2-4) % Baso % (Auto) 0.3 (0-2) % Neut # (Auto) 41205 H (2579-2835) /uL Lymph # (Auto) 3000 (4633-9737) /uL [place] # (Auto) 1000 H (0-900) /uL Eos # (Auto) 100 (0-450) /uL Baso # (Auto) 0 (0-100) /uL Sodium 135 L (137-145) mmol/L Potassium 3.7 (3.4-5.1) mmol/L Chloride 104 (98-107) mmol/L Carbon Dioxide 21 L (22-32) mmol/L BUN 9 (7-17) mg/dL Creatinine 0.49 L (0.52-1.04) mg/dL Estimated GFR > 60 (>60) mL/min BUN/Creatinine Ratio 18.4 (6-22) Glucose 105 H (70-100) mg/dL Calcium 9.1 (8.4-10.2) mg/dL Total Bilirubin 0.2 (0.2-1.3) mg/dL AST 20 (14-36) IU/L ALT 14 (<35) IU/L Alkaline Phosphatase 79 (38-126) U/L Total Protein 6.4 (6.3-8.2) g/dL Albumin 3.7 (3.5-5.0) g/dL Globulin 2.7 (1.7-4.1) g/dL Albumin/Globulin Ratio 1.4 (1.0-2.8) Ketones 0.11 (<0.27) mmol/L SARS-CoV-2 (PCR) Negative (Negative) Urine Dip Bedside Urine Glucose Negative Bedside Urine Bilirubin - Negative Bedside Urine Ketone +/- 5 Urine Specific [place] 1.020 Bedside Urine Occult Blood - Negative Bedside Urine pH 6.0 Bedside Urine Protein - Negative Bedside Urine Urobilinogen - Negative Bedside Urine Nitrite - Negative Bedside Urine Leukocytes - Negative Esterase MDM Narrative Medical decision making narrative: Patient with reassuring history and physical exam, only vomited once. No evidence of dehydration on exam, feels significant improvement after 1 L of fluid, tolerating orals. No dizziness upon standing. Discharge Plan Departure Patient Disposition: Home Clinical Impression: Nausea & vomiting Instructions: Nausea and Vomiting-Adult Activity Restrictions/Additional Instructions: *You have been diagnosed with [nausea and vomiting. As we discussed your history and physical exam are reassuring, you have been rehydrated with IV fluid and labs showed no significant abnormalities] *What to do: *Please continue to take your regular medications as directed. [ ] New medication prescriptions sent to your pharmacy: [ ] [ ] New medication written as a paper prescription [ x] No new medications given *Please follow up with your primary care provider in 2-3 days, call for an appointment. Let them know you were seen in the Emergency Department and that we ask that you be seen in follow up. We will electronically transmit a record of today's note if your PCP is in our system *If you do not have a primary care provider please contact the [facility] Resource line at [phone]. They will ask some questions about your medical history and help get you set up with a doctor in the community. *Return to Emergency Department if you should have any new, worsening or concerning symptoms, such as [fever greater than 101 F, shaking chills, worsening pain, persistent vomiting or other bothersome symptoms] Prescriptions: No Action albuterol sulfate 90 mcg/actuation HFA aerosol inhaler 1 inh inhalation QID PRN (Reason: shortness of breath or wheezing) Qty: 6.7 3RF prenat.vits,sha,jrw-vaai-rznxw Tablet 1 tab PO DAILY Qty: 30 9RF folic acid 800 mcg tablet 0.8 mg PO DAILY Qty: 90 3RF ferrous sulfate 325 mg (65 mg iron) tablet 325 mg PO DAILY Qty: 30 3RF ondansetron 4 mg tablet,disintegrating 4 mg PO Q6H PRN (Reason: nausea and vomiting) Qty: 20 3RF risperidone 3 mg tablet 3 mg PO BEDTIME Qty: 30 2RF risperidone microspheres 12.5 mg/2 mL suspension,extended rel recon 12.5 mg IM Q14D Qty: 1 5RF oxycodone 5 mg tablet 5 mg PO Q8H PRN (Reason: pain) Qty: 14 0RF acyclovir 400 mg tablet 400 mg PO BID Qty: 180 3RF Referrals: Max Samuels DO [Primary Care Provider] - Visit Report Forms: Patient Portal/API
[2022-01-17] MEDS: ONDANSETRON 4 MG ODT PREPACK 1 BOTTLE MISC (21:30)
== END 2022-01-17 21:32 | disposition home or self-care (01) ==
PROVIDERS: Emergency Provider Emergency Medicine; Family Provider Family Medicine; PCP Family Medicine; Referring Provider Obstetrics & Gynecology
DX: O21.9 Vomiting of pregnancy, unspecified (principal); Z3A.14 14 weeks gestation of pregnancy; Z20.822 Contact with and (suspected) exposure to COVID-19
CPT/HCPCS: 36415; 80053; 81003; 82009; 85025; 87635; 96361; 96374; 96375; 99284; C9803; C9113; J2405

== ENCOUNTER → 2022-02-14 14:47 | Outpatient (CLI) | payer OTHER, MEDICAID, SELFPAY ==
[2022-02-14 15:39] LABS: HEMOLYSIS < 15 (0-50); Iron 116 ug/dL (37-170)
[2022-02-14 15:51] LABS: Percent Iron Saturation 27 % (15-50); Total Iron Binding Capacity 435 ug/dL (265-497); Transferrin 326 mg/dL (206-381)
[2022-02-15 10:04] LABS: Bile Acids 5.3 umol/L (0.0-10.0)
[2022-02-16 22:24] LABS: AFP Value 35.8 ng/mL (.); Gest Age on Col Date 18.3 weeks (.); Insulin Dep Diabetes No (.); OSBR Risk 1IN 10000 (.); Results Report (.); Test Results *Screen Negative* (.)
== END ==
PROVIDERS: Family Provider Family Medicine; PCP Family Medicine; Referring Provider Obstetrics & Gynecology; Visit Provider Obstetrics & Gynecology
DX: O20.9 Hemorrhage in early pregnancy, unspecified (principal); L29.9 Pruritus, unspecified; R53.83 Other fatigue
CPT/HCPCS: 36415; 82105; 82239; 83540; 83550

== ENCOUNTER → 2022-02-20 09:12 | Outpatient (CLI) | payer OTHER, MEDICAID, SELFPAY ==
--- NOTE | 2022-02-20 09:12 | DI.US.S_ITS ---
PROCEDURE: US OB >= 14 WEEKS FETUS INDICATIONS: ANATOMY OUTSIDE/PRIOR DATING DATA: Last menstrual period (LMP): 10/02/2021. LMP-based estimated date of delivery (DEON): 07/09/2022. First dating scan (date and location): 7 weeks 1 day Estimated date of delivery (DEON) from first dating scan: 07/21/2022. The calculations are made using the ultrasound DEON of 07/21/2022. TECHNIQUE: Real-time scanning was performed of the fetus, with image documentation and biometric measurements. COMPARISON: [facility], , OB >= 14 WEEKS FETUS, 01/23/2022, 14:53. FINDINGS: General: A single living intrauterine gestation is present. Presentation: Breech. Placenta: Placental position is anterior , without previa. Amniotic fluid index: 18.0 cm, normal range is 5-24 cm. Single deepest vertical pocket is 5.2 cm. heart rate: 145 beats per minute. Maternal cervical canal: 5.4 cm long. Normal lower limit is 2.5 cm. biometrics: Biparietal diameter: 3.9 cm. 17 weeks 6 days Head circumference: 14.5 cm. 17 weeks 5 days. Abdominal circumference: 13.6 cm. 19 weeks 0 days. Femur length: 2.7 cm. 18 weeks 2 days. Clinically estimated gestational age: 18 weeks 3 days Composite gestational age from present scan: 18 weeks 2 days Estimated weight and percentile: 246 grams. 54th percentile. Anatomic survey: Neuro: A right choroid plexus cyst measures 8 x 5 x 2 mm. The lateral ventricles are not well visualized. Nuchal skin fold: Normal at less than 6 mm between 14-21 weeks gestational age. Face: Not well seen Spine: Not well seen Heart: 4-chambered heart is present, with normal ventricular outflow tracts. Diaphragm: Diaphragm is intact. Stomach: Left-sided stomach is present. Kidneys: No hydronephrosis. Normal is less than 5 mm in 2nd trimester, less than 7 mm in 3rd trimester. Cord: 3-vessel cord has orthotopic insertion. Bladder: Normal in size. Extremities: All 4 extremities identified. IMPRESSION: 1. 8 x 5 x 2 millimeter right choroid plexus cyst. In isolation, likely benign, however recommend follow-up imaging. 2. Visualized anatomy is normal, however the lateral ventricles, sacral spine, and nose/lips are not visualized. Recommend follow-up imaging for completion of anatomy scan. We strive to produce accurate, complete, and clear reports of imaging services. To assist us in improving patient care, this report was composed using standard report templates and voice recognition software. Therefore, it may contain abnormal punctuation, insertions and/or omissions. Occasional wrong-word or sound-alike substitutions may occur. Though we review the report and make efforts to correct it, we do recommend that the report be read carefully in proper context to recognize any text inaccuracies. Dictated by: Mehrdad Baeza M.D. on 02/20/2022 at 12:03 Approved by: Mehrdad Baeza M.D. on 02/20/2022 at 12:08
== END ==
PROVIDERS: Family Provider Family Medicine; PCP Family Medicine; Referring Provider Obstetrics & Gynecology; Visit Provider Obstetrics & Gynecology
DX: O35.8XX0 Maternal care for other (suspected) fetal abnormality and damage, not applicable or unspecified (principal); Z3A.20 20 weeks gestation of pregnancy
CPT/HCPCS: 76811

== ENCOUNTER → 2022-03-21 08:30 | Outpatient (CLI) | payer OTHER, MEDICAID, SELFPAY ==
--- NOTE | 2022-03-21 08:32 | DI.US.S_ITS ---
PROCEDURE: US OB LIMITED INDICATIONS: f/u choroid plexus cyst OUTSIDE/PRIOR DATING DATA: Last menstrual period (LMP): 10/02/2021. LMP-based estimated date of delivery (DEON): 07/09/2022. First dating scan (date and location): 12/03/2021. Estimated date of delivery (DEON) from first dating scan: 07/21/2022. The calculations are made using the ultrasound DEON of 07/21/2022.. TECHNIQUE: Real-time scanning was performed of the fetus, with image documentation. COMPARISON: [facility], , US OB >= 14 WEEKS FETUS, 02/20/2022, 9:20. FINDINGS: A single living intrauterine gestation is present. Presentation: Variable. Placenta: Placental position is anterior, without previa. Amniotic fluid index: 13.4 cm, normal range is 5-24 cm. Single deepest vertical pocket is 3.5 cm. heart rate: 157 beats per minute. Maternal cervical canal: 4.6 cm long. Normal lower limit is 2.5 cm. Clinically estimated gestational age: 24 weeks 2 days Anatomic survey: Neuro: Previously seen choroid plexus cysts in the right ventricle is no longer visualized. Spine: The sacral spine is suboptimally visualized due to maternal body habitus. IMPRESSION: 1. Previously described cord plexus cyst in the right ventricle is no longer visualized. 2. The sacrum is suboptimally visualized. The remainder of the spine is normal. Dictated by: Mehrdad Baeza M.D. on 03/21/2022 at 16:28 Approved by: Mehrdad Baeza M.D. on 03/21/2022 at 16:32
== END ==
PROVIDERS: Family Provider Family Medicine; PCP Family Medicine; Referring Provider Obstetrics & Gynecology; Visit Provider Obstetrics & Gynecology
DX: Z36.2 Encounter for other antenatal screening follow-up (principal); Z3A.24 24 weeks gestation of pregnancy
CPT/HCPCS: 76815

== ENCOUNTER → 2022-04-17 11:23 | Outpatient (CLI) | payer OTHER, MEDICAID, SELFPAY ==
[2022-04-17 15:41] LABS: Hematocrit 34.2 % (36-46); Hemoglobin 11.4 g/dL (12.0-16.0)
[2022-04-17 16:26] LABS: GTT (PREG) 1 Hour PP 50gm Dose 95 mg/dL (76-139)
== END ==
PROVIDERS: Family Provider Family Medicine; PCP Family Medicine; Referring Provider Obstetrics & Gynecology; Visit Provider Obstetrics & Gynecology
DX: O99.342 Other mental disorders complicating pregnancy, second trimester (principal); F60.3 Borderline personality disorder; F43.10 Post-traumatic stress disorder, unspecified; F90.2 Attention-deficit hyperactivity disorder, combined type; Z3A.26 26 weeks gestation of pregnancy
CPT/HCPCS: 36415; 82950; 85014; 85018; 99214

== ENCOUNTER → 2022-04-25 15:22 | Outpatient (CLI) | payer OTHER, MEDICAID, SELFPAY | PROVIDERS: Family Provider Family Medicine; PCP Family Medicine; Visit Provider Obstetrics & Gynecology | DX: Z34.82 Encounter for supervision of other normal pregnancy, second trimester (principal); Z3A.27 27 weeks gestation of pregnancy | CPT/HCPCS: 87086 ==

== ENCOUNTER 2022-05-22 17:21 | Observation (INO) | payer OTHER, MEDICAID, SELFPAY ==
--- NOTE | 2022-05-22 19:36 | PM.OBTRLD ---
Visit Information Visit Information Date of evaluation: 05/22/22 Primary OB Provider: Nay Lamar On-call OB Provider: Lona Abraham Reason for Evaluation: Yes non-stress test Comments/Additional reasons for admission: 26 yo presents for decreased movement and also contractions over the past 5 days. She reports frequency contractions depends on what she is doing. She reports currently not feeling many contractions. Yesterday she had more contractions and presented to [facility] ED. S he reports she was having frequent contractions there. She had a cervical exam there and was not dilated. She was told her urine looked dehydrated. Denies leakage of fluid or vaginal bleeding. She says it has been difficult to feel much movement this , but also having less movement the past few days. Also reports lower back discomfort,not relieved by Tylenol this am. She points to very low back across back, consistent with musculoskeletal discomfort. Vital Signs Vital Signs: Temp 96.8F, BP 102/70 PFSH Medical History Acute bacterial bronchitis ADD (attention deficit disorder) Allergies Anemia affecting Bronchitis Chronic cough Chronic urinary tract infection Dyspepsia Dysuria Frequent UTI GERD (gastroesophageal reflux disease) Headache History of suicide attempt Hyperemesis gravidarum Incontinence Low back strain Nausea & vomiting Nontraumatic coccydynia Personality disorder POTS (postural orthostatic tachycardia syndrome) Tobacco abuse disorder Urge incontinence Surgical History Anesthesia History of cholecystectomy History of third molar tooth extraction History of tonsillectomy (~2012) Family History Grandmother Diabetes mellitus Pacemaker Grandmother Diabetes mellitus Social History marital status: number of children: 1 (2 live births, gave up first child to adoption) household members: spouse, family ('s grandmother) and children lives independently: Yes housing: other (mobile home) pets and animals: Yes (6 cats, 1 dog, 2 birds) education level: high school occupational status: employed current occupational exposures/hazards: No special mary needs: No seatbelt use: always water heater temp set < 120 deg: Yes working smoke detector in home: Yes fire extinguisher in home: Yes carbon monox detector in home: Yes firearms in home: Yes do you feel safe at home: Yes Smoking Status: Current every day smoker (vaping) Tobacco: How many years used: 2 second hand exposure: No alcohol intake: former substance use type: marijuana (Previously, no longer) during the past year weight has: decreased > 10 lbs (~20 lb, not intentional) well-balanced diet: about half the time daily servings fruits/ve-4 caffeine: Yes (NOS energy drinks and Red Bull spritzers; counseled to stop) Type(s) of exercise: none and walking (~2 miles/day at work) Exam Vital Signs (past 8 hours): BP normal. See Obix Narrative Exam Narrative: Back: No CVA tenderness bilaterally. Area back discomfort she points to very low. Const General: healthy appearing and comfortable Evaluation Evaluation Baseline heart rate: 145 Variability: Average (6-10) monitor accelerations: Present Monitor Decelerations: Absent Category of Tracing: Reactive Comments: 1 contraction in 90 minutes Diagnosis, Plan/Disposition Plan/Disposition Plan: Decreased movement. nonstress test is reactive, reassuring. heart rate tracing shows multiple accelerations. Recommended patient do kick counts and discussed, since routinely having more difficulty feeling movement. She does have a follow-up appointment in 1 week. Offered cervical exam, she declined and agreed as she then reported she was checked yesterday, and cervix was not dilated, she is not ranjith today back discomfort appears musculoskeletal. Urinalysis initially sent since she pointed higher up on her back, but no CVA tenderness and mostly discomfort is musculoskeletal, low back discomfort. Will let them run the urinalysis since she has been recently having contractions. labor precautions reviewed. Also advise on the activity counts. Keep appointment in 1 week. Return earlier as needed... OB Disposition: home
[2022-05-22 20:19] LABS: Appearance Urine UA CLEAR; Bilirubin Urine UA NEGATIVE (NEGATIVE); Color Urine UA YELLOW; Glucose Urine UA TRACE g/dL (Negative); Ketones Urine UA NEGATIVE (NEGATIVE); Leukocyte Esterase Urine UA NEGATIVE (NEGATIVE); Nitrite Urine UA NEGATIVE (Negative); Occult Blood Urine UA NEGATIVE (Negative); Protein Urine UA NEGATIVE (Negative); Specific Gravity Urine UA 1.015 (1.000-1.035); Urobilinogen Urine UA 0.2 E.U./dL (0.2)
[2022-05-22 20:23] LABS: pH Urine UA 7.5 (4.5-8.0)
[2022-05-22 20:32] LABS: Bacteria Urine None Seen; Culture Indicated Urine Cult Not Indicated; RBC Urine None Seen (0-5/HPF); WBC Urine 0-1/HPF (0-5/HPF)
== END 2022-05-22 19:30 | disposition home or self-care (01) ==
PROVIDERS: Admitting Provider Obstetrics & Gynecology; Family Provider Family Medicine; PCP Family Medicine; Referring Provider Obstetrics & Gynecology; Visit Provider Obstetrics & Gynecology
DX: O36.8130 Decreased fetal movements, third trimester, not applicable or unspecified (principal); O47.03 False labor before 37 completed weeks of gestation, third trimester; Z3A.31 31 weeks gestation of pregnancy
CPT/HCPCS: 59025; 59050; 81001; G0378; G0379

== ENCOUNTER 2022-06-19 10:10 | Observation (INO) | payer OTHER, MEDICAID, SELFPAY ==
[2022-06-19 10:38] LABS: Appearance Urine UA CLEAR; Bilirubin Urine UA NEGATIVE (NEGATIVE); Color Urine UA YELLOW; Glucose Urine UA 2+ g/dL (Negative); Ketones Urine UA NEGATIVE (NEGATIVE); Leukocyte Esterase Urine UA TRACE (NEGATIVE); Nitrite Urine UA NEGATIVE (Negative); Occult Blood Urine UA NEGATIVE (Negative); Protein Urine UA 1+ (Negative); Urobilinogen Urine UA 0.2 E.U./dL (0.2); pH Urine UA 6.5 (4.5-8.0)
[2022-06-19 10:48] LABS: Amorphous Sediment Urine 1+; Squamous Epithelial Cell Urine 5-10 /HPF (0-5/HPF)
[2022-06-19 10:49] LABS: Bacteria Urine None Seen; Culture Indicated Urine Specimen Cultured; RBC Urine None Seen (0-5/HPF); WBC Urine 1-5/HPF (0-5/HPF)
[2022-06-19] MEDS: LACTATED RINGERS 1,000 ML 1000 ML IV (11:32)
--- NOTE | 2022-06-19 12:36 | P.TNLD_ITS ---
Visit Information Visit Information Date of evaluation: 06/19/22 Primary OB Provider: Nay Lamar On-call OB Provider: Joy Winslow Reason for Evaluation: Yes other Comments/Additional reasons for admission: 26YO at 35 5/7wks gestation here for evaluation of back pain, cramping, dizziness and elevated heart rate. Has diagnosis of POTS and has been checking home heart rate with a pulse ox and reports HR is elevated at 140bpm. Has been having upper back pain, between her shoulders and took a muscle relaxer yesterday at the advice of [facility] , with no relief. Is frustrated with persistent discomfort. Thinks she has been doing better staying hydrated, but isn't sure. Vital Signs Vital Signs: BP 119/58mmHg, HR 108bpm, T 36.3C Temporal HR 90 after 1L IVFB PFSH Medical History Acute bacterial bronchitis ADD (attention deficit disorder) Allergies Anemia affecting Bronchitis Chronic cough Chronic urinary tract infection Dyspepsia Dysuria Frequent UTI GERD (gastroesophageal reflux disease) Headache History of suicide attempt Hyperemesis gravidarum Incontinence Low back strain Nausea & vomiting Nontraumatic coccydynia Personality disorder POTS (postural orthostatic tachycardia syndrome) Tobacco abuse disorder Urge incontinence Surgical History Anesthesia History of cholecystectomy History of third molar tooth extraction History of tonsillectomy (~2012) Family History Grandmother Diabetes mellitus Pacemaker Grandmother Diabetes mellitus Social History marital status: number of children: 1 (2 live births, gave up first child to adoption) household members: spouse, family ('s grandmother) and children lives independently: Yes housing: other (mobile home) pets and animals: Yes (6 cats, 1 dog, 2 birds) education level: high school occupational status: employed current occupational exposures/hazards: No special mary needs: No seatbelt use: always water heater temp set < 120 deg: Yes working smoke detector in home: Yes fire extinguisher in home: Yes carbon monox detector in home: Yes firearms in home: Yes do you feel safe at home: Yes Smoking Status: Current every day smoker (vaping) Tobacco: How many years used: 2 second hand exposure: No alcohol intake: former substance use type: marijuana (Previously, no longer) during the past year weight has: decreased > 10 lbs (~20 lb, not intentional) well-balanced diet: about half the time daily servings fruits/ve-4 caffeine: Yes (NOS energy drinks and Red Bull spritzers; counseled to stop) Type(s) of exercise: none and walking (~2 miles/day at work) Exam Vital Signs (past 8 hours): see above Presentation: vertex Objective Labs Labs: Laboratory Results - last 24 hr 06/19/22 10:21 Urine Color Yellow Urine Appearance Clear Urine pH 6.5 Ur Specific [place] 1.020 Urine Protein 1+ H Urine Glucose (UA) 2+ H Urine Ketones Negative Urine Occult Blood Negative Urine Nitrate Negative Urine Bilirubin Negative Urine Urobilinogen 0.2 Ur Leukocyte Esterase Trace H Urine RBC None seen Urine WBC 1-5/hpf Ur Squamous Epith Cells 5-10 /hpf H Amorphous Sediment 1+ Urine Bacteria None seen Ur Culture Indicated? Specimen cultured Evaluation Evaluation Baseline heart rate: 135 Variability: Moderate (11-25) monitor accelerations: Present Monitor Decelerations: Absent Contraction Frequency (minutes): 6 Uterine Contraction Intensity: Mild Category of Tracing: Reactive Cervical dilation (cm): 1 Cervical effacement (%): 50 station: -4 Diagnosis, Plan/Disposition Final Diagnosis (1) Encounter for supervision of other normal , third trimester: Status: Acute Plan/Disposition Plan: 1L LR IVFB given for dehydration/concentrated urine. Patient had some relief after fluids, but then ate something and felt dizzy again. Emotional support given for common discomforts of third trimester. reassurance of normal HR given. RTC as previously scheduled. OB Disposition: home
== END 2022-06-19 13:03 | disposition home or self-care (01) ==
LOC: LABOR 10:13
PROVIDERS: Admitting Provider Nurse Practitioner Obstetrics & Gynecology; Family Provider Family Medicine; PCP Family Medicine; Referring Provider Nurse Practitioner Obstetrics & Gynecology; Visit Provider Nurse Practitioner Obstetrics & Gynecology
DX: O26.893 Other specified pregnancy related conditions, third trimester (principal); M54.9 Dorsalgia, unspecified; R10.9 Unspecified abdominal pain; R42 Dizziness and giddiness; R03.0 Elevated blood-pressure reading, without diagnosis of hypertension; Z3A.35 35 weeks gestation of pregnancy
CPT/HCPCS: 59025; 59050; 81001; 87086; 96360; G0378; G0379

== ENCOUNTER → 2022-06-23 14:03 | Outpatient (CLI) | payer OTHER, MEDICAID, SELFPAY ==
[2022-06-24 12:38] LABS: Strep Grp B PCR NEG for Grp B Strep
== END ==
PROVIDERS: Family Provider Family Medicine; PCP Family Medicine; Visit Provider Obstetrics & Gynecology
DX: Z34.83 Encounter for supervision of other normal pregnancy, third trimester (principal); Z3A.36 36 weeks gestation of pregnancy
CPT/HCPCS: 87653

== ENCOUNTER 2022-07-01 21:16 | Outpatient (CLI) | payer OTHER, MEDICAID, SELFPAY ==
[2022-07-01 22:26] VITALS: BP 122/72; PULSE 106; RESP 18; TEMP 36.9
== END 2022-07-01 22:28 | disposition home or self-care (01) ==
LOC: OB 07-06 12:04
PROVIDERS: Family Provider Family Medicine; PCP Family Medicine; Referring Provider Obstetrics & Gynecology; Visit Provider Obstetrics & Gynecology
DX: Z03.71 Encounter for suspected problem with amniotic cavity and membrane ruled out (principal); O47.1 False labor at or after 37 completed weeks of gestation; Z3A.37 37 weeks gestation of pregnancy
CPT/HCPCS: 59025; 84112; G0378; G0379

== ENCOUNTER 2022-07-07 09:03 | Observation (INO) | payer OTHER, MEDICAID, SELFPAY ==
--- NOTE | 2022-07-07 09:58 | P.TNLD_ITS ---
Visit Information Visit Information Date of evaluation: 07/07/22 Primary OB Provider: Nay Lamar On-call OB Provider: Brianna Combs Reason for Evaluation: Yes rule out labor Comments/Additional reasons for admission: 26yo at 38w2d here for contractions. Pt reports having contractions since 1pm yesterday. They originally increased in intensity, but have been stable for the last 12hrs. No LOF, vaginal bleeding. She is feeling her baby move regularly. [facility] Medical History (Updated 07/07/22 @ 13:29 by Brianna Combs MD) Acute bacterial bronchitis ADD (attention deficit disorder) Allergies Anemia affecting Chronic cough Chronic urinary tract infection Dysuria Frequent UTI GERD (gastroesophageal reflux disease) History of suicide attempt Hyperemesis gravidarum Incontinence Low back strain Nontraumatic coccydynia Personality disorder POTS (postural orthostatic tachycardia syndrome) Tobacco abuse disorder Urge incontinence Surgical History Anesthesia History of cholecystectomy History of third molar tooth extraction History of tonsillectomy (~2012) Family History Grandmother Diabetes mellitus Pacemaker Grandmother Diabetes mellitus Social History marital status: number of children: 1 (2 live births, gave up first child to adoption) household members: spouse, family ('s grandmother) and children lives independently: Yes housing: other (mobile home) pets and animals: Yes (6 cats, 1 dog, 2 birds) education level: high school occupational status: employed current occupational exposures/hazards: No special mary needs: No seatbelt use: always water heater temp set < 120 deg: Yes working smoke detector in home: Yes fire extinguisher in home: Yes carbon monox detector in home: Yes firearms in home: Yes do you feel safe at home: Yes Smoking Status: Current every day smoker (vaping) Tobacco: How many years used: 2 second hand exposure: No alcohol intake: former substance use type: marijuana (Previously, no longer) during the past year weight has: decreased > 10 lbs (~20 lb, not intentional) well-balanced diet: about half the time daily servings fruits/ve-4 caffeine: Yes (NOS energy drinks and Red Bull spritzers; counseled to stop) Type(s) of exercise: none and walking (~2 miles/day at work) Evaluation Evaluation Baseline heart rate: 130 Variability: Moderate (11-25) monitor accelerations: Present Monitor Decelerations: Absent Contraction Frequency (minutes): 4 Uterine Contraction Intensity: Mild Category of Tracing: Reactive Cervical dilation (cm): 1 Cervical effacement (%): 80 station: -1 Diagnosis, Plan/Disposition Final Diagnosis (1) Prolonged latent phase of labor: Status: Acute Plan/Disposition Plan: 26yo at 38w2d here for contractions. No significant cervical change since clinic. Pt declines any medications to help with discomfort. Safe for d/c home. OB Disposition: home
--- NOTE | 2022-07-08 17:39 | PM.CALLCOV.1 ---
Call Coverage Note Note Date of Patient Contact: 07/08/22 Time of Patient Contact: 17:30 Narrative of Care Provided: Sol called. She has had a cough for 5 days and now has pain on in her upper left quadrant that is worse with cough, movement, lying on that side. Has already tried ice, heat, acetaminophen (500 mg q 4 hrs), bath, Tessalon aguila. Robitussin. Pain is 9/10, feels like someone is stabbing her. Baby moving well. denies vaginal bleeding or changes in discharge. Denies headache, visual changes, pain in RUQ. Review comfort measures and warning signs and when to page with concerns. Recommend taking 1000 mg acetminophen q 8 hours, and try things to minimize/manage cough.
== END 2022-07-07 11:27 | disposition home or self-care (01) ==
PROVIDERS: Admitting Provider Obstetrics & Gynecology; Family Provider Family Medicine; PCP Family Medicine; Referring Provider Obstetrics & Gynecology; Visit Provider Obstetrics & Gynecology
DX: O63.0 Prolonged first stage (of labor) (principal); Z3A.38 38 weeks gestation of pregnancy
CPT/HCPCS: 59025; 59050; G0378; G0379

== ENCOUNTER 2022-07-11 20:03 | Inpatient (IN) | payer OTHER, MEDICAID, SELFPAY ==
[2022-07-11 20:54] VITALS: BP 119/75
[2022-07-11] MEDS: LACTATED RINGERS 1,000 ML 100 ML IV (21:31)
[2022-07-11] MEDS: miSOPROStoL 100 MCG TABLET 25 MCG VAG (21:35)
[2022-07-11 21:46] LABS: Add Manual Diff / Slide Review NO; Basophils Absolute Auto 0 /uL (0-100); Basophils Percent Auto 0.2 % (0-2); Eosinophils Absolute Auto 100 /uL (0-450); Eosinophils Percent Auto 0.7 % (2-4); Hematocrit 31.8 % (36-46); Hemoglobin 10.5 g/dL (12.0-16.0); Lymphocytes Absolute Auto 2500 /uL (1100-4500); Lymphocytes Percent Auto 20.8 % (25-40); Mean Corpuscular HGB Conc 33.1 % (30-36); Mean Corpuscular Hemoglobin 24.4 PG (26-34); Mean Corpuscular Volume 73.8 fL (80-100); Monocytes Absolute Auto 900 /uL (0-900); Monocytes Percent Auto 7.8 % (3-14); Neutrophils Absolute Auto 8600 /uL (1500-7000); Neutrophils Percent Auto 70.5 % (50-75); Platelet Count 230 X10^3/uL (150-400); Red Blood Cell Count 4.31 X10^6/uL (4.0-5.2); Red Cell Distribution Width 14.1 % (11.6-14.8); White Blood Cell Count 12.2 X10^3/uL (4.5-11.0)
[2022-07-11 22:11] LABS: COVID19 -Nasal RAPID Negative (Negative)
[2022-07-12] MEDS: OXYTOCIN PREMIX 30 UNIT/500 ML PLAST..BAG IV (09:05)
[2022-07-12] MEDS: ONDANSETRON 4 MG/2 ML INJ IV (09:37)
[2022-07-12 09:41] VITALS: BP 109/74; PULSE 93
[2022-07-12] MEDS: METOPROLOL ER 25 MG TABLET PO (09:41)
[2022-07-12 12:33] VITALS: BP 114/65; PULSE 89
[2022-07-12] MEDS: BENZONATATE 100 MG CAPSULE PO (12:39)
[2022-07-12] MEDS: LACTATED RINGERS 1,000 ML 100 ML IV (16:11)
[2022-07-12] MEDS: CODEINE/GUAIFENESIN LIQUID 5ML UDC 10 ML PO (19:40)
--- NOTE | 2022-07-12 20:26 | PM.OBHP.IH.1 ---
OB HPI Date/Time Date of admission: 07/11/22 Date Patient Seen: 07/12/22 Time Patient Seen: 08:45 History of Present Condition Chief complaint: OBSERVATION OF LABOR DEON Calculator Estimated Delivery Date Method Current WG Current Estimate 07/19/22 Ultrasound #1 39w 0d Other Estimates 07/09/22 LMP (Certain) 40w 3d 07/22/22 Ultrasound #2 38w 4d Estimated Gestational Age (weeks): 39 : 3 Para: 2 care: good care, initiated at week # (10), number of visits (12) and pounds weight gain (20) Dating criteria OB: LMP confirmed by 1st trimester US Ultrasounds: normal 1st trimester US and normal mid trimester US Obstetrical complications: none Medical complications OB: cardiovascular (tachycardia) and psychiatric (bipolar d/o) Indications Indication for induction OB: maternal discomfort Preadmission Labs Last OB Lab Results: Blood Type A Positive 07/11/22 21:10 Antibody Screen Negative 07/11/22 21:10 Hematocrit 31.8 % (36-46) L 07/11/22 21:10 Hemoglobin 10.5 g/dL (12.0-16.0) L 07/11/22 21:10 Hepatitis B Surface Antigen Negative s/c (NEGATIVE) 12/23/21 09:30 Hepatitis C Antibody Negative s/c (NEGATIVE) 12/23/21 09:30 Rubella Antibody 19.6 IU/mL (>15) 12/23/21 09:30 Varicella-Zoster IgG Antibody 517 index (Immune >165) 12/23/21 09:30 Glucose 1 Hour 95 mg/dL (76-139) 04/17/22 12:47 Group B Streptococcus (PCR) Neg for grp b strep 06/23/22 14:03 -: Chlamydia screen: negative, Gonorrhea screen: negative and Urine: negative -: PAP smear: Normal Genetic Screens: Cell-free DNA: Normal (normal female) and Alpha-fetoprotein: Normal External Labs -: Urine: negative Prior (ies) Past Pregnancies Del. Date GA/Weeks Labor Lgth Wt Sex Route Outcome Anesthesia Place Delv Breastfeed Preg Comp Name 11/02/14 40 10 7 lb 7 oz Male vacuum live - full term epidural [facility] 3 months other Nicho Sethi 02/23/17 38 3 7 lb 2 oz Male vaginal live - full term [place] ([facility] 2 days other Delivery Date: 11/02/14 Last Updated by: Ashli Varela R.N. Hyperemesis; baby was removed from pt's custody ~3 months old, returned in 2021 Delivery Date: 02/23/17 Last Updated by: Ashli Varela R.N. Anemia. Removed from pt's custody at two days old and legally adopted as she [facility] time. Evaluation Evaluation Baseline heart rate: 145 Variability: Moderate (11-25) monitor accelerations: Present Monitor Decelerations: Absent Contraction Frequency (minutes): 4 Uterine Contraction Intensity: Mild Status: Category l Dilation (cm): 1 Effacement (%): 75 station: -3 Position of cervix: posterior Consistency: soft [facility] Medical History (Updated 07/11/22 @ 22:22 by Nay Lamar MD) Acute bacterial bronchitis ADD (attention deficit disorder) Allergies Anemia affecting Chronic cough Chronic urinary tract infection Dysuria Frequent UTI GERD (gastroesophageal reflux disease) History of suicide attempt Hyperemesis gravidarum Incontinence Low back strain Nontraumatic coccydynia Personality disorder POTS (postural orthostatic tachycardia syndrome) Tobacco abuse disorder Urge incontinence Surgical History Anesthesia History of cholecystectomy History of third molar tooth extraction History of tonsillectomy (~2012) Family History Grandmother Diabetes mellitus Pacemaker Grandmother Diabetes mellitus Social History marital status: number of children: 1 (2 live births, gave up first child to adoption) household members: spouse, family ('s grandmother) and children lives independently: Yes housing: other (mobile home) pets and animals: Yes (6 cats, 1 dog, 2 birds) education level: high school occupational status: employed current occupational exposures/hazards: No special mary needs: No seatbelt use: always water heater temp set < 120 deg: Yes working smoke detector in home: Yes fire extinguisher in home: Yes carbon monox detector in home: Yes firearms in home: Yes do you feel safe at home: Yes Smoking Status: Current every day smoker Tobacco: How many years used: 2 second hand exposure: No alcohol intake: former substance use type: marijuana (Previously, no longer) during the past year weight has: decreased > 10 lbs (~20 lb, not intentional) well-balanced diet: about half the time daily servings fruits/ve-4 caffeine: Yes (NOS energy drinks and Red Bull spritzers; counseled to stop) Type(s) of exercise: none and walking (~2 miles/day at work) Meds Home Medications and Allergies Home Medications Medication Instructions Recorded Confirmed Type risperidone microspheres 25 mg/2 25 mg (2 mL) IM Q14D #1 ea 05/23/22 07/11/22 Rx mL intramuscular susp,ext release ferrous sulfate 142 mg (45 mg 142 mg PO DAILY #30 tabs 05/29/22 07/11/22 Rx iron) tablet,extended release (Slow Fe) omeprazole 20 mg capsule,delayed 20 mg PO BID #60 caps 06/12/22 07/11/22 Rx release Allergies Allergy/AdvReac Type Severity Reaction Status Date / Time latex [LATEX] Allergy Mild Rash Verified 07/11/22 10:31 Sulfa (Sulfonamide Allergy Mild Swelling Verified 07/11/22 10:31 Antibiotics) of the Eye [SULFA (SULFONAMIDE ANTIBIOTICS)] OB Exam Narrative Exam Narrative: Generally: NAD, tolerating contractions well Lungs: CTA bilat CV: RRR FH: 39 cm EFW: 7 1/2 # Ext: trace edema Objective Labs Result Diagrams: 07/11/22 21:10 Labs: Laboratory Results - last 24 hr 07/11/22 07/11/22 07/11/22 21:10 21:10 21:10 WBC 12.2 H RBC 4.31 Hgb 10.5 L Hct 31.8 L MCV 73.8 L MCH 24.4 L MCHC 33.1 RDW 14.1 Plt Count 230 Neut % (Auto) 70.5 Lymph % (Auto) 20.8 L [place] % (Auto) 7.8 Eos % (Auto) 0.7 L Baso % (Auto) 0.2 Neut # (Auto) 8600 H Lymph # (Auto) 2500 [place] # (Auto) 900 Eos # (Auto) 100 Baso # (Auto) 0 SARS-CoV-2 (PCR) Negative Blood Type A Positive Antibody Screen Negative Assessment and Plan Assessment and Plan Assessment and Plan narrative: Assesment: 26 y jeana pikeld at 39 wks gestation s/p misoprostol x 1 Induction of labor Ctx's too close for another cytotec Plan: Pitocin per protocol 1 Epidural prn Expectant management to Time Spent with Patient Total time spent with greater than 50% in coordination of care (as documented) at patient's floor/unit and/or counseling patient:: 15-24 minutes
--- NOTE | 2022-07-12 20:35 | PM.OBPNLAB ---
Date/Time Date Patient Seen: 07/12/22 Time Patient Seen: 18:10 Pain Control Pain control: tolerating well (getting a little uncomfortable) Pelvic Exam Dilation (cm): 1 Effacement (%): 80 station: -2 Amniotic membrane status: Intact Contractions Contractions on admission: none Monitor mode: External Pitocin rate (mU/min): 15 Contraction frequency (min): 38 Contraction duration (min): 1 Contraction pattern: Regular Contraction phase: Resting Contraction intensity: Moderate Status status: Category l Heart Rate Baseline: 150 Monitor Accelerations: Present Monitor Decelerations: Absent Monitor Variability: Moderate Assessment and Plan Assessment: induction ongoing Comments: Pitocin off overnight Guafenicin with codeine for cough Restart Pitocin at 5 am AROM when able Expectant management to
[2022-07-13] MEDS: OXYTOCIN PREMIX 30 UNIT/500 ML PLAST..BAG IV (05:16)
[2022-07-13] MEDS: LACTATED RINGERS 1,000 ML 100 ML IV (05:17)
--- NOTE | 2022-07-13 08:58 | PM.OBPNLAB ---
Date/Time Date Patient Seen: 07/13/22 Time Patient Seen: 08:58 Pain Control Pain control: tolerating well Comments: Pitocin was stopped last night. Restarted at 5:00 a.m.. Patient getting uncomfortable. Just got out of the tub Pelvic Exam Dilation (cm): 2 Effacement (%): 80 station: -1 Amniotic membrane status: Intact Contractions Contractions on admission: none Monitor mode: External Pitocin rate (mU/min): 12 Contraction frequency (min): 4 Contraction duration (min): 1 Contraction pattern: Regular Contraction phase: Resting Contraction intensity: Moderate Status status: Category l Heart Rate Baseline: 148 Monitor Accelerations: Present Monitor Decelerations: Absent Monitor Variability: Moderate Assessment and Plan Assessment: induction ongoing Plan: continuous present management Comments: AROM when able Epidural as necessary Expected management to spontaneous vaginal delivery
[2022-07-13 10:17] VITALS: BP 118/65; PULSE 80
[2022-07-13] MEDS: METOPROLOL ER 25 MG TABLET PO (10:17)
[2022-07-13] MEDS: ONDANSETRON 4 MG/2 ML INJ IV ×2 (10:54→17:27)
[2022-07-13] MEDS: FENT 2MCG/ML BUPIV 0.125% EPI 200 MCG/100 ML PLAST..BAG 8 MCG EPIDURAL ×2 (13:12→20:00)
--- NOTE | 2022-07-13 13:56 | PM.OBPNLAB ---
Date/Time Date Patient Seen: 07/13/22 Time Patient Seen: 11:30 Pain Control Pain control: tolerating well Pelvic Exam Dilation (cm): 3 Effacement (%): 85 station: -1 Amniotic membrane status: Intact Contractions Monitor mode: External Pitocin rate (mU/min): 18 Contraction frequency (min): 3 Contraction duration (min): 1 Contraction pattern: Regular Contraction phase: Resting Contraction intensity: Moderate Status status: Category l Heart Rate Baseline: 145 Monitor Accelerations: Present Monitor Decelerations: Absent Monitor Variability: Moderate Assessment and Plan Assessment: active labor Comments: AROM with copious clear amniotic fluid Epidural prn Expectant management to
--- NOTE | 2022-07-13 21:23 | PM.OBPNLAB ---
Date/Time Date Patient Seen: 07/13/22 Time Patient Seen: 21:23 Pain Control Pain control: epidural Pelvic Exam Dilation (cm): 4 Effacement (%): 100 station: 0 Amniotic membrane status: Ruptured Contractions Monitor mode: External Pitocin rate (mU/min): 20 Contraction frequency (min): 3 Contraction duration (min): 1 Contraction pattern: Regular Contraction phase: Resting Contraction intensity: Moderate Status status: Category l Heart Rate Baseline: 145 Monitor Accelerations: Present Monitor Decelerations: Absent Monitor Variability: Moderate Assessment and Plan Assessment: active labor Plan: continuous present management
--- NOTE | 2022-07-13 23:21 | PM.OBPRVD ---
Events: Labor Induction Labor & Delivery Delivery date: 07/13/22 Intrapartal Events: Prolonged Latent Phase and Deceleration (variable near delivery) Cervical ripening method: per misoprostal protocol Induction method: per pitocin protocol Delivery augmentation: rupture of membranes Delivery monitor: external FHT and external uterine Route of delivery: Episiotomy description: None L&D Laceration Description: None Quantitative Blood Loss: 200 Anesthesia Type: Epidural Complications: none Narrative: Patient complete and pushed with 3 contractions. At 11:08 p.m., a live female infant delivered spontaneously in the WILLY presentation, with turning from OP to LOT to WILLY on the perineum. A nuchal cord x1 was reduced on the perineum. The remainder of the body was delivered without difficulty and placed on mom's abdomen. The cord was double clamped and cut after it stopped pulsing. Cord bloods were obtained. Pitocin was given in the IV fluids at a rate of 220 cc/hour. The placenta delivered intact with a three-vessel cord at 11:16 p.m.. The fundus was massaged to firm. The perineum was inspected and there were no lacerations. Mom and stable to recovery. Apgars 9 at 1 minute and 9 at 5 minutes. weight 7 lb 7 oz. Baby 1: gender: Female Presentation: vertex Position: Right Occiput Anterior Placenta delivery description: Spontaneous Cord Vessel Description: 3 Vessels, Nuchal Cord (x1), Loose, Reduced and Clamped/Cut (after cord stopped pulsing) score (1 min): 9 score (5 min): 9 weight: 7 lb 7 oz Plan for aftercare: Routine care
[2022-07-14] VITALS (7 sets, daily range): BP systolic 107–119; BP diastolic 67–87; PULSE 74–81; RESP 10–16; TEMP 35.5; O2SAT 95–97
--- NOTE | 2022-07-14 | PATH_ITS ---
[facility] Accession Number: [id number] No. of containers..01 Tissue . 01 Material submitted: . fallopian tube - RIGHT AND LEFT FALLOPIAN TUBES . 01 Diagnosis: Right and Left Fallopian Tubes, Segment Excision: Bilateral fallopian tubes without significant diagnsotic abnormalities. Negative for atypia and malignancy. MRV 07/18/2022 1317 Local . 01 Electronically signed: . Coral Daniels MD, Pathologist NPI- [id number] . 01 Gross description: . The specimen is received in formalin (the original container was broken, and the specimen was transferred into an intact formalin-filled container) labeled with the patient's name, , and right and left fallopian tubes, and consists of two unoriented fimbriated fallopian tubes measuring 5.8 x 0.9 cm and 7.1 x 0.9 cm, respectively. The longer fallopian tube has congested smooth serosa with no cystic structures identified. Sectioning reveals an unremarkable stellate lumen. The shorter fallopian tube has congested smooth serosa with no cystic structures identified. Sectioning reveals an unremarkable stellate lumen. Bore Mill Operator sections to include the entire fimbriae and cross sections are submitted as follows: A1: Longer fallopian tube. A2: [place] fallopian tube. ([id number]) /FRR 07/15/2022 1625 Local . 01 Pathologist provided ICD-10: Z30.2 . 01 CPT . 480242 Specimen Comment: A courtesy copy of this report has been sent to [phone] Performed at: 01 [facility] [address] [place] [address] Suite [facility] [place], [place], [place] [id number] MD Francisco Gaines MD Phone: [phone]
[2022-07-14] MEDS: ACETAMINOPHEN 325 MG TABLET 650 MG PO ×2 (06:08→14:14)
[2022-07-14 06:26] LABS: Hematocrit 32.7 % (36-46); Hemoglobin 10.6 g/dL (12.0-16.0)
[2022-07-14] MEDS: METOPROLOL ER 25 MG TABLET PO (10:56)
--- NOTE | 2022-07-14 13:04 | SUR.OPER ---
Supine on padded OR bed, head on pillow, arms secured on padded arm boards at <90 degrees abduction, legs uncrossed, safety belt at thigh, tape over blanket over lower legs.
[2022-07-14] MEDS: BUPIVACAINE 0.5% W/ EPI (PF) 30 ML VIAL INJ (13:18)
--- NOTE | 2022-07-14 13:38 | PM.PREOP ---
Pre-operative Note COVID-19 COVID-19 status: Negative Result date/Date tested (Pos, Neg/Pending): 07/12/22 Criteria for continued procedure: Non-surgical alternatives not available or appropriate per current SOC Interval Note History & Physical reviewed/Exam performed by Physician: Yes Changes to H&P: No H&P completed within 30 days and has changed as indicated here:: 07/12/22
--- NOTE | 2022-07-14 13:41 | P.OP_ITS ---
Operative Date/Time/Diagnoses Date of procedure: 07/14/22 Time of procedure: 13:41 Pre-op diagnosis: Multiparity Desires permanent sterilization Post-op diagnosis: same Procedure & Clinicians Procedure: Procedures Operation Date: 07/14/22 12:30 Actual Procedure Side Surgeon p Post Bilateral Tubal Ligation Nay Lamar MD Indications: Multiparity Desires permanent sterilizatin Surgeon: Nay Lamar Anesthesia Type: General and Local Operative Notes Findings: Normal uterus, tubes and ovaries Closure Type: primary Specimen(s): left tube and right tube Estimated blood loss (mL): 10 Blood products transfused: none Procedure in detail: After informed consent was obtained, the patient was taken to the operating room where she was placed in the dorsal supine position. After adequate general endotracheal anesthesia was achieved, she was prepped and draped in the usual sterile fashion. A time-out was performed. 6 cc of 0.5% Marcaine with epinephrine were injected under the umbilicus. Allis clamps were placed prox imally 2.5 cm apart. An incision was made between the 2 Allis clamps. The skin and underlying subcutaneous tissue was grasped with Allis clamps. A knife was used to incise the tissue to the fascia. The fascia was nicked in the midline and the incision was extended bilaterally with the Sanchez scissors. Two hemostats were used to grasped the peritoneum and it was entered sharply with the Jennie jesus scissors. This incision was extended bluntly. There was omentum in the way of the uterus. An Luis Manuel was placed into the peritoneum. The left tube was identified and carried out to the fimbriated end with [place]'s. Using the LigaSure, the mesosalpinx was cauterized and cut all the way down to the cornua of the uterus. The tube was handed off for specimen. There was some bleeding noted from the cornua. A stitch with 0 Vicryl was placed for hemostasis. Hemostasis was achieved. All of this was repeated on the patient's right side. Hemostasis was achieved. The Luis Manuel was removed from the abdomen. The fascia was reapproximated with 0 Vicryl in a running fashion. Two simple interrupted sutures were placed in the subcutaneous layer with 3-0 Vicryl to reapproximate. 4-0 Monocryl was used in a subcuticular fashion to close the skin. Steri-Strips and an Allevyn dressing were placed. Sponge, lap, and instrument counts were correct x2. Patient tolerated the procedure well, and was taken to PACU in stable condition. Complications: none Post-operative Condition: stable Disposition: PACU Plan for aftercare: To the Center after recovery
--- NOTE | 2022-07-14 13:58 | SUR.PHASEI ---
Report called to Yoly.
--- NOTE | 2022-07-14 14:11 | SUR.PHASEI ---
Patient reported 9/10 abdominal pain, ice pack applied. Oxycodone offered, patient declined as she wished to see her baby. Patient reported pain improved to 7/10 upon transfer to the center. Report given to Yoly. VS stable. Abdominal dressing CDI. Dentures in place. Left rawls ring with white stones in place.
[2022-07-14] MEDS: OXYCODONE IR 5 MG TABLET PO (14:14)
--- NOTE | 2022-09-04 13:46 | P.DS_ITS ---
Discharge Providers Provider Date of admission: 07/11/22 20:03 Discharge Date: 07/14/22 Primary care physician: Max Samuels DO Consults: Anesthesia for epidural Discharge provider: Nay Lamar MD Summary Hospital Course Date Patient Seen: 07/14/22 Time Patient Seen: 13:15 Diagnoses: 39 weeks gestatiion Misoprostol cervical ripening Pitocin induction of labor Epidural analgesia Spontaneous vaginal delivery Bilateral salpingectomy Desired permanent sterilization Hospital Course: Patient is a 26 year old who presented on 07/11/22 for misoprostol cervical ripening. On July 12, 2021 she was started on Pitocin was 1/75/3 station. At 6:10 p.m. Pitocin was at 15. She had not changed much. The Pitocin was turned off overnight. On the morning of July 13, 2022 she was 2/80%/-1 station. Artificial rupture of membranes was performed at 11:30 a.m. when she was 3 cm/85/-1. There was copious clear amniotic fluid. At 9:30 p.m. she was 4 cm/100%/0 station and had received an epidural for pain management. At 11:08 p.m. she had a spontaneous vaginal delivery of a 7 lb 7 oz baby. On July 14, 2022 she had a bilateral salpingectomy without complication. She was discharged home on the same day. Peripartum Data Delivery Method: Natural Vaginal Laceration Description: None Episiotomy description: None Procedures: Misoprostol cervical ripening Pitocin induction of labor Epidural analgesia Artificial rupture of membranes Spontaneous vaginal delivery bilateral salpingectomy complications: none [place] 1: Gender: Female Disposition of : home Status at Discharge Cognitive/behavioral status at discharge: oriented Functional status at discharge: independent ambulation Overall status at discharge: patient is progressing back to baseline Time Spent with Patient Time attestation: Total time spent providing and/or coordinating discharge services: Time spent: Less than 30 minutes Objective Labs 07/14/22 06:10 Exam Vital Signs (past 8 hours): Oxygen Delivery Method Room Air Narrative Exam Narrative: Generally: Patient is sitting up in bed, no acute distress Fundus: Firm at U-1 Incision: Clean dry and intact with bandage Extremities: Negative Homans Discharge Plan Discharge Plan Patient Disposition: Home Provider Discharge Comment: Call with fever, chills, redness or drainage around the incision, or bleeding vaginally more than a pad in an hour Ibuprofen 600 mg every 6 hours as needed Tylenol 650 mg every 6 hours as needed Nursing Discharge Comment: You can take Ibuprofen at 7:30pm and tylenol at 8:15pm tonight Discharge orders & Medications Prescriptions: Discontinued Slow Fe 142 mg (45 mg iron) tablet extended release 142 mg PO DAILY Qty: 30 1RF omeprazole 20 mg capsule,delayed release(DR/EC) 20 mg PO BID Qty: 60 0RF Patient Comments: she only takes as needed No Action sertraline 50 mg tablet 100 mg PO DAILY Qty: 60 3RF risperidone microspheres 25 mg/2 mL suspension,extended rel recon 25 mg IM Q14D Qty: 1 5RF Rx Instructions: pharmacy to administer Follow up/Referrals: Nay Lamar MD [Physician] - 07/27/22 4:15 pm (July 27 @ 4:15pm August 24 @ 2pm) Max Samuels, [Primary Care Provider] - Diet/Activity/Treatments Diet: Regular Activity: No heavy lifting for the first week Nothing in the vagina for 6 weeks Skin/Wound/Dressing Care Report to your healthcare provider any signs of infection, such as:: chills, fever, increased pain, unusual drainage and unusual redness Dressing: Remove outer pink dressings with attached gauze in 3 days after morning shower If Steri-Strips have not fallen off by 2 weeks, you may remove them Visit Report/Discharge Packet Instructions: DI for Tubal Ligation, DI for Labor and Delivery, Vaginal , DI for Prescription Opioid Use Stand Alone Forms: Discharge: Care, Patient Portal/API, Stroke Signs & Symptoms, Surgery Discharge Discharge Data Primary Care Provider: Max Samuels
== END 2022-07-14 17:40 | disposition home or self-care (01) | DRG 541 ==
PROVIDERS: Admitting Provider Obstetrics & Gynecology; Family Provider Family Medicine; PCP Family Medicine; Referring Provider Obstetrics & Gynecology; Visit Provider Obstetrics & Gynecology
PROC: 0UT70ZZ Resection of Bilateral Fallopian Tubes, Open Approach (ICD-10-PCS; CPT 58605; principal; 2022-07-14 12:30)
DX: O76 Abnormality in fetal heart rate and rhythm complicating labor and delivery (principal); Z3A.39 39 weeks gestation of pregnancy; Z37.0 Single live birth; O99.892 Other specified diseases and conditions complicating childbirth; F31.9 Bipolar disorder, unspecified; R00.0 Tachycardia, unspecified; Z20.822 Contact with and (suspected) exposure to COVID-19; Z30.2 Encounter for sterilization
CPT/HCPCS: 36415; 58605; 59025; 59050; 59200; 59409; 76815; 85014; 85018; 85025; 86850; 86900; 86901; 87635; C9803; G0379; J1100; J2405; J2590; J2704; J3010

== ENCOUNTER 2022-09-09 09:57 | Emergency (ER) | payer OTHER, MEDICAID, SELFPAY ==
[2022-09-09 10:05] VITALS: BP 142/87; PULSE 90; RESP 16; TEMP 36.2; O2SAT 99
--- NOTE | 2022-09-09 11:48 | ED.URI ---
HPI - URI/Sore Throat General Chief Complaint: Upper Respiratory Symptoms Stated Complaint: Cough/SOB/Stuffy Nose/Tightness in Chest Time Seen by Provider: 09/09/22 11:46 Source: patient Mode of arrival: Ambulatory Limitations: no limitations History of Present Illness HPI Narrative: This is a 27-year-old female with history of bipolar on injection medication and sertraline daily. Patient is 2 months pumping breast milk presents with her for temperatures no higher than 99 F, nasal congestion, cough some green productive sputum, no shortness of breath. Some nausea but no vomiting. Mom had some diarrhea but states that has been tingling off. No chest pain, no abdominal pain no back or flank pain. No urinary symptoms. Patient states she is on her regular medications. Patient has not had any major surgeries recently. Patient states she is pumping breast milk she states she is noted some decrease in her output but has been trying to take more fluids. She has been avoiding anti cough medication so this does not decrease her supply. Patient states she was recently prescribed azithromycin, she was not seen here but states that it was from here. Related Data Previous Rx's Medication Instructions Recorded risperidone microspheres 25 mg/2 25 mg (2 mL) IM Q14D #1 ea 08/11/22 mL intramuscular susp,ext release sertraline 50 mg tablet 100 mg PO DAILY #60 tabs 08/24/22 amoxicillin 875 mg-potassium 1 tab PO BID #14 tabs 09/04/22 clavulanate 125 mg tablet Allergies Allergy/AdvReac Type Severity Reaction Status Date / Time latex [LATEX] Allergy Mild Rash Verified 09/09/22 10:18 Sulfa (Sulfonamide Allergy Mild Swelling Verified 09/09/22 10:18 Antibiotics) of the Eye [SULFA (SULFONAMIDE ANTIBIOTICS)] Review of Systems Review of Systems ROS Unobtainable: All systems reviewed & are unremarkable except as noted in HPI and below Patient History Medical History Acute bacterial bronchitis ADD (attention deficit disorder) Allergies Anemia affecting Chronic cough Chronic urinary tract infection Dysuria Frequent UTI GERD (gastroesophageal reflux disease) History of suicide attempt Hyperemesis gravidarum Incontinence Low back strain Nontraumatic coccydynia Personality disorder POTS (postural orthostatic tachycardia syndrome) Tobacco abuse disorder Urge incontinence Surgical History Anesthesia History of cholecystectomy History of third molar tooth extraction History of tonsillectomy (~2012) Family History Grandmother Diabetes mellitus Pacemaker Grandmother Diabetes mellitus Social History marital status: number of children: 1 (2 live births, gave up first child to adoption) household members: spouse, family ('s grandmother) and children lives independently: Yes housing: other (mobile home) pets and animals: Yes (6 cats, 1 dog, 2 birds) education level: high school occupational status: employed current occupational exposures/hazards: No special mary needs: No seatbelt use: always water heater temp set < 120 deg: Yes working smoke detector in home: Yes fire extinguisher in home: Yes carbon monox detector in home: Yes firearms in home: Yes do you feel safe at home: Yes Smoking Status: Current every day smoker Tobacco: How many years used: 2 second hand exposure: No alcohol intake: former substance use type: marijuana (Previously, no longer) during the past year weight has: decreased > 10 lbs (~20 lb, not intentional) well-balanced diet: about half the time daily servings fruits/ve-4 caffeine: Yes (NOS energy drinks and Red Bull spritzers; counseled to stop) Type(s) of exercise: none and walking (~2 miles/day at work) Smoking Status: Current every day smoker tobacco type: cigarettes and vaping alcohol intake frequency: holidays/special occasions only Substance Use Type: marijuana Exam Narrative Exam Narrative: GEN: well nourished, well appearing female, alert and oriented x 3, patient appears to be in mild distress. HEENT: Atraumatic, pupils are equal round reactive to light, extraocular movements are intact, nares mild bilateral congestion, TMs are clear with no fluid, there is no conjunctival pallor. Throat is clear without any exudates, erythema, tonsillar enlargement or uvular deviation HEART: Regular rate and rhythm without murmur, clicks, rubs. LUNGS:Lungs clear to auscultation, no wheezes, rales, crackles, chest moves symmetrically, no tachypnea. Patient does sound nasally congested. Makes speaks in full sentences. No tachypnea, no accessory muscle use. ABD:bowel sounds normal, soft, non-tender, no guarding, rebound, rigidity, no masses noted, no hepatosplenomegaly :No CVA tenderness MSCL: Non-tender, no muscle atrophy, muscles strength 5/5 upper and lower extremities, full range of motion, normal gait NEURO:CN 2-12 intact, sensation normal SKIN: No rash, erythema or other skin changes. Initial Vital Signs Initial Vital Signs: Vital Signs Temperature 97.1 F L 09/09/22 10:05 Pulse Rate 90 09/09/22 10:05 Respiratory Rate 16 09/09/22 10:05 Blood Pressure 142/87 H 09/09/22 10:05 Pulse Oximetry 99 09/09/22 10:05 Oxygen Delivery Method Room Air 09/09/22 10:05 Course Vital Signs Vital signs: Vital Signs - 8 hr 09/09/22 10:05 Temperature 97.1 F L Pulse Rate 90 Respiratory Rate 16 Blood Pressure 142/87 H Pulse Oximetry 99 Oxygen Delivery Method Room Air MDM - URI/Sore Throat MDM Narrative Medical decision making narrative: This is a 27-year-old 2 months presents with her for nasal congestion cough with some green productive sputum. Patient is afebrile she says max temperature has been 99 at home lungs are clear this time I do not feel she needs to start on antibiotics she did not have respiratory panel but her infant in his positive for human metapneumovirus. Suspect they both have a viral upper respiratory infection. Discussed return precautions, continuing to hydrate, she is so discussed bumping regularly. Discharge Plan Departure Patient Disposition: Home Clinical Impression: Upper respiratory infection Instructions: Human Metapneumovirus Infection Activity Restrictions/Additional Instructions: I hope you continue to feel better in the next week. You can take Tylenol up to a 1000 mg and/or ibuprofen up to 600 mg every 6 hours as needed for any fevers or muscle aches. Continue to pump regularly even if you are having less output, often as you start to improve in terms of your illness your milk production will improve as well. Continued hydrate regularly. Please return for worsening symptoms new chest pain, shortness of breath, lightheadedness or passing out, persistent vomiting, new swelling of her extremities or other new or concerning changes. Prescriptions: No Action sertraline 50 mg tablet 100 mg PO DAILY Qty: 60 3RF risperidone microspheres 25 mg/2 mL suspension,extended rel recon 25 mg IM Q14D Qty: 1 5RF Rx Instructions: pharmacy to administer amoxicillin-pot clavulanate 875-125 mg tablet 1 tab PO BID Qty: 14 0RF Referrals: Max Samuels DO [Primary Care Provider] - Stand Alone Forms: Patient Portal/API
[2022-09-09 12:24] VITALS: BP 115/58; PULSE 79; O2SAT 98
== END 2022-09-09 12:42 | disposition home or self-care (01) ==
PROVIDERS: Emergency Provider Emergency Medicine; Family Provider Family Medicine; PCP Family Medicine
DX: J06.9 Acute upper respiratory infection, unspecified (principal)
CPT/HCPCS: 99281

== ENCOUNTER → 2022-11-03 10:37 | Outpatient (CLI) | payer OTHER, MEDICAID, SELFPAY | PROVIDERS: Family Provider Family Medicine; PCP Family Medicine; Referring Provider Family Medicine; Visit Provider Family Medicine | DX: R35.0 Frequency of micturition (principal) | CPT/HCPCS: 81002; 87086 ==

== ENCOUNTER → 2022-12-05 12:27 | Outpatient (CLI) | payer OTHER, MEDICAID, SELFPAY ==
--- NOTE | 2022-12-05 12:29 | DI.RAD.S_ITS ---
PROCEDURE: XR CHEST 2V INDICATIONS: Cough and chest heaviness TECHNIQUE: 2 views of the chest were acquired. COMPARISON: [facility], CR, XR CHEST 2V, 11/30/2020, 10:13. FINDINGS: Surgical changes and devices: None. Lungs and pleura: Lungs are clear. No pleural effusions or pneumothorax. Mediastinum: Mediastinal contours are normal. Heart size is normal. Bones and chest wall: No suspicious bony abnormalities. Soft tissues appear unremarkable. IMPRESSION: No acute cardiopulmonary disease process. Dictated by: Kristyn Hayward MD, PhD on 12/05/2022 at 14:15 Approved by: Kristyn Hayward MD, PhD on 12/05/2022 at 14:16
[2022-12-05 13:01] LABS: D Dimer 898 ng/ml (<500)
== END ==
PROVIDERS: Family Provider Family Medicine; PCP Family Medicine; Referring Provider Physician Assistant; Visit Provider Physician Assistant
DX: R05.9 Cough, unspecified (principal)
CPT/HCPCS: 36415; 71046; 85379

== ENCOUNTER → 2023-06-13 11:53 | Outpatient (CLI) | payer OTHER, MEDICAID, SELFPAY ==
--- NOTE | 2023-06-13 11:54 | DI.RAD.S_ITS ---
PROCEDURE: XR CHEST 2V INDICATIONS: chronic cough, hx smoker TECHNIQUE: 2 views of the chest were acquired. COMPARISON: [facility], CR, XR CHEST 2V, 12/05/2022, 12:34. FINDINGS: Surgical changes and devices: None. Lungs and pleura: Lungs are clear. No pleural effusions or pneumothorax. Mediastinum: Mediastinal contours are normal. Heart size is normal. Bones and chest wall: No suspicious bony abnormalities. Soft tissues appear unremarkable. IMPRESSION: No acute cardiopulmonary abnormality is seen. Dictated by: Dell Finley M.D. on 06/13/2023 at 14:07 Approved by: Dell Finley M.D. on 06/13/2023 at 14:07
== END ==
PROVIDERS: Family Provider Family Medicine; PCP Family Medicine; Referring Provider Physician Assistant; Visit Provider Physician Assistant
DX: J45.909 Unspecified asthma, uncomplicated (principal); Z72.0 Tobacco use
CPT/HCPCS: 71046

== ENCOUNTER → 2023-06-26 09:14 | Outpatient (CLI) | payer OTHER, MEDICAID, SELFPAY | PROVIDERS: Family Provider Family Medicine; PCP Family Medicine; Referring Provider Physician Assistant; Visit Provider Physician Assistant | DX: Z72.0 Tobacco use (principal); R05.9 Cough, unspecified; J45.909 Unspecified asthma, uncomplicated | CPT/HCPCS: 94060; 94726; 94729 ==

== ENCOUNTER → 2023-08-22 09:20 | Outpatient (CLI) | payer OTHER, MEDICAID, SELFPAY ==
--- NOTE | 2023-08-22 09:21 | DI.ECHO.S_ITS ---
[place] [facility] +---------+ : : [address] [place] [address] : : : : [id number] : : : : Phone: [phone]+ Echocardiogram Report + + :Name: MARCELLA ANTONIO Study Date: 08/22/2023 Height: 64 in : :[facility] ReadingLocation: Weight: 223 lb : : Gender: Female BSA: 2.0 m2 : :: 1995 Age: 28 yrs BP: 113/87 mmHg: :Reason For Study: FATIGUE, POST COVID SYMPTOMS : :Ordering Physician: ESME, : :KIMBERLYN Performed By: Susana Juarez : :Referring: KIMBERLYN VICTORIA : + + Interpretation Summary The left ventricle is normal in size and wall thickness. Left ventricular systolic function appears normal without focal wall motion abnormalities. The ejection fraction is estimated to be 55-60%. The right ventricle is normal in size and function. The left atrium grossly appears normal in size. Pulmonary artery pressures cannot be estimated because of the lack of a measurable TR jet velocity. The IVC is of normal diameter and collapses greater than 50% with a sniff. This suggests a low right atrial pressure of 3 mm Hg. There is no pericardial effusion. Procedure: Images were not obtained from all of the standard acoustic windows due to the limited scope of the study. The study quality was technically adequate. Comparison is made with the echocardiogram of 05/17/2020. The patient was in sinus tachycardia with heart rates between 94- 112 bpm during the exam. Left Ventricle: The left ventricle is normal in size and wall thickness. Left ventricular systolic function appears normal without focal wall motion abnormalities. The ejection fraction is estimated to be 55-60%. Right Ventricle: The right ventricle is normal in size and function. Atria: The left atrium grossly appears normal in size. Right atrial size is normal. Aortic Valve: The aortic valve opens well. Tricuspid Valve: The tricuspid valve is normal in structure and function. No tricuspid regurgitation. Pulmonary artery pressures cannot be estimated because of the lack of a measurable TR jet velocity. Great Vessels: The IVC is of normal diameter and collapses greater than 50% with a sniff. This suggests a low right atrial pressure of 3 mm Hg. Pericardium/ Pleura There is no pericardial effusion. There is no pleural effusion. MMode/2D Measurements & Calculations LVIDd: 4.6 cm LA A4 area: 10.9 cm2 LVIDs: 3.1 cm LA length (vol): 4.2 cm FS: 32.3 % IVSd: 0.72 cm LVPWd: 0.90 cm LV gonzalez. diameter/BSA (cm/m^2): 2.3 LV sys. diameter/BSA (cm/m^2): 1.5 RA long axis: 4.1 cm RVD1 (basal): 3.4 cm RA area: 12.0 cm2 TAPSE: 1.9 cm RA vol: 29.9 ml RA : 14.6 ml/m2 IVC diam: 0.92 cm Reading Physician:01:42 PM
== END ==
LOC: ECHO 09:21
PROVIDERS: Family Provider Family Medicine; PCP Family Medicine; Referring Provider Family Medicine; Visit Provider Family Medicine
DX: U07.1 COVID-19 (principal); R06.00 Dyspnea, unspecified; R53.83 Other fatigue; R05.1 Acute cough
CPT/HCPCS: 93307

== ENCOUNTER → 2024-02-21 08:29 | Outpatient (CLI) | payer OTHER, MEDICAID, SELFPAY ==
[2024-02-21 10:06] LABS: Add Manual Diff / Slide Review NO; Basophils Absolute Auto 0 /uL (0-100); Basophils Percent Auto 0.4 % (0-2); Eosinophils Absolute Auto 200 /uL (0-450); Eosinophils Percent Auto 1.9 % (2-4); Hematocrit 42.1 % (36-46); Hemoglobin 13.7 g/dL (12.0-16.0); Lymphocytes Absolute Auto 2700 /uL (1100-4500); Mean Corpuscular HGB Conc 32.6 % (30-36); Mean Corpuscular Hemoglobin 25.6 PG (26-34); Mean Corpuscular Volume 78.6 fL (80-100); Monocytes Absolute Auto 800 /uL (0-900); Monocytes Percent Auto 6.8 % (3-14); Neutrophils Absolute Auto 7500 /uL (1500-7000); Neutrophils Percent Auto 66.9 % (50-75); Platelet Count 236 X10^3/uL (150-400); Red Blood Cell Count 5.35 X10^6/uL (4.0-5.2); Red Cell Distribution Width 13.7 % (11.6-14.8); White Blood Cell Count 11.2 X10^3/uL (4.5-11.0)
[2024-02-21 10:39] LABS: Alanine Aminotransferase 51 IU/L (<35); Albumin 4.2 g/dL (3.5-5.0); Albumin Globulin Ratio 1.8 (1.0-2.8); Alkaline Phosphatase 110 U/L (38-126); Aspartate Aminotransferase 32 IU/L (14-36); BUN Creatinine Ratio 21.1 (6-22); Bilirubin Total 0.5 mg/dL (0.2-1.3); Blood Urea Nitrogen 15 mg/dL (7-17); Carbon Dioxide 22 mmol/L (22-32); Chloride 101 mmol/L (98-107); Cholesterol 213 mg/dL (140-199); Estimated Glomerular Filt Rate > 60 mL/min (>60); Globulin 2.4 g/dL (1.7-4.1); Glucose 253 mg/dL (70-100); HDL Cholesterol 30 mg/dL (40-60); HEMOLYSIS < 15 (0-50); LDL Cholesterol Calculated 138 mg/dL (<100); Potassium 4.9 mmol/L (3.4-5.1); Sodium 135 mmol/L (137-145); Total Protein 6.6 g/dL (6.3-8.2); Triglycerides 226 mg/dL (35-150)
[2024-02-21 11:03] LABS: TSH w/ Reflex to FT4 2.67 uIU/mL (0.47-4.68)
== END ==
PROVIDERS: Family Provider Family Medicine; PCP Family Medicine; Referring Provider Psychiatry & Neurology Psychiatry; Visit Provider Psychiatry & Neurology Psychiatry
DX: F31.81 Bipolar II disorder (principal); Z79.899 Other long term (current) drug therapy
CPT/HCPCS: 36415; 80053; 80061; 83036; 84443; 85025

== ENCOUNTER → 2024-04-27 14:33 | Outpatient (CLI) | payer OTHER, MEDICAID, SELFPAY ==
[2024-04-27 15:24] LABS: COVID-19 CEPHEID 4-PLEX PCR Negative (Negative); Influenza A - CEPHEID Flu A NEGATIVE (NEGATIVE); Influenza B - CEPHEID Flu B NEGATIVE (NEGATIVE); Respiratory Syncytial Virus Negative (Negative)
== END ==
PROVIDERS: Family Provider Family Medicine; PCP Family Medicine; Visit Provider Physician Assistant Surgical
DX: R05.1 Acute cough (principal); R09.81 Nasal congestion; J02.0 Streptococcal pharyngitis
CPT/HCPCS: 87635; 87400 ×2; 87420; 0241U; 87880

== ENCOUNTER → 2024-05-01 15:17 | Outpatient (CLI) | payer OTHER, MEDICAID, SELFPAY ==
[2024-05-01 16:08] LABS: Hemoglobin A1C% w Est Avg Glu 8.8 % (4.0-6.0)
[2024-05-01 16:31] LABS: Alanine Aminotransferase 44 IU/L (<35); Albumin 3.9 g/dL (3.5-5.0); Albumin Globulin Ratio 1.5 (1.0-2.8); Alkaline Phosphatase 110 U/L (38-126); Aspartate Aminotransferase 32 IU/L (14-36); Bilirubin Total 0.3 mg/dL (0.2-1.3); Blood Urea Nitrogen 9 mg/dL (7-17); Calcium 9.6 mg/dL (8.4-10.2); Carbon Dioxide 26 mmol/L (22-32); Chloride 97 mmol/L (98-107); Estimated Glomerular Filt Rate > 60 mL/min (>60); Globulin 2.6 g/dL (1.7-4.1); Glucose 420 mg/dL (70-100); HEMOLYSIS < 15 (0-50); Potassium 4.6 mmol/L (3.4-5.1); Sodium 132 mmol/L (137-145); Total Protein 6.5 g/dL (6.3-8.2)
[2024-05-01 17:00] LABS: TSH w/ Reflex to FT4 1.44 uIU/mL (0.47-4.68)
== END ==
PROVIDERS: Family Provider Family Medicine; PCP Family Medicine; Referring Provider Family Medicine; Visit Provider Family Medicine
DX: E11.9 Type 2 diabetes mellitus without complications (principal); K21.9 Gastro-esophageal reflux disease without esophagitis; I49.8 Other specified cardiac arrhythmias; E78.5 Hyperlipidemia, unspecified
CPT/HCPCS: 80053; 83036; 84443

== ENCOUNTER → 2024-05-14 14:55 | Outpatient (CLI) | payer OTHER, MEDICAID, SELFPAY ==
--- NOTE | 2024-05-14 16:55 | DIAB.MNT ---
Initial Diabetes Medical Nutrition Therapy Assessment Name: Sol Leon Date: 05/14/24 Time: 3-4p Dx: Type II Diabetes Provider: Samuels Sol presents for initial visit. Endorses new diagnosis of T2DM since January this year. FH of DM with her father, paternal uncle, and both grandmothers. Unclear of when her father was diagnosed, reports he is . PMH of 3 births, no GDM or PDM hx per report. Started Glargine at last PCP visit. Interested in additional insulin injections due to feeling hungry and as though she cannot eat anything without hyperglycemia. Reports trial of Metformin, Janumet, and glipizide with SE. Insurance has not covered Semaglutide, though provider is trying to help her get this covered since she is unable to tolerate other DM meds. Interested in CGM. Diet recall: 10a-12p: cereal OR cream of wheat OR chicken bake on emperatriz purchased 3-4p: 1oz bag chips 5-6p: 1-2c spaghetti with garlic bread OR mashed potatoes x 1c with chx and green beans 24oz sweetened energy drink (does not like the sf option) 16oz milk 3-4 x 16.9oz water eggnog sometimes Anthropometrics: Ht: 64 Wt: 245# Physical Activity: Fatigue is a barrier, which may be r/t hyperglycemia. Was enjoying walking and swimming last year. Self-Monitoring Blood Glucose: Checking FBG 200-261mg/dl and HS 283-499mg/dl. Diabetes Medications: 18u Glargine HS Pertinent Labs: HGA1c: 7% 01/2024 8.8% 04/2024 Past Medical History: (Last Reviewed 05/02/24 @ 13:35 by Max Samuels DO) Acute bacterial bronchitis ADD (attention deficit disorder) Allergies Anemia affecting Borderline hyperlipidemia Chronic cough Chronic urinary tract infection Concussion Dyspnea due to COVID-19 Dysuria Fatigue Frequent UTI GERD (gastroesophageal reflux disease) Headache History of suicide attempt Hyperemesis gravidarum Incontinence Low back strain Menorrhagia Moderate ankle sprain Nontraumatic coccydynia Personality disorder Pharyngitis due to Streptococcus species POTS (postural orthostatic tachycardia syndrome) Tobacco abuse disorder Type 2 diabetes mellitus Urge incontinence Urinary urgency Vaginal yeast infection Nutrition Rx: Carbohydrates: Meal:30g (up to 45g after BG better managed) Snack:15-30g Nutrition Diagnosis: - Excessive CHO intake r/t new dx T2DM and nutrition knowledge deficit aeb diet recall, hgA1c, and pt report - Physical inactivity r/t fatigue attributed likely to elevated BG aeb pt report and BG meter Intervention: This participant was very receptive. Provided appropriate educational handouts. Discussed the following topics: Completed intake assessment. Discussed barriers to care. Plate Method, impact of macronutrients on blood sugar, meal timing, carbohydrate counting, pairing macronutrients and spreading out carbohydrates for better blood glucose management Recommended servings for carbohydrates at meals and snacks [facility] nutrition Brainstormed appropriate meal/snack ideas based on food preferences Role of physical activity IMpact of hyperglycemia and hypoglycemia s/s and tx of hypoglycemia Insulin titration 2u q 2-3 days until seeing PCP on Sunday CGM Sample Reviewed CGM use and equipment Discussed when to check blood sugars using finger stick Reviewed high and low blood sugar signs/symptoms and treatment options Provided education for self-administration of CGM placement Educated patient on alarm settings Discussed how to remove and dispose of equipment Created SMART goals for patient self-care and success. Goals: Wear CGM x 10.5 days Insulin: 20u tonight 2-3 days if FBG >150mg/dl increase to 22u Be aware of CHO at meals as discussed Follow-up: MELVIN DELACRUZ follow-up in [address] will provide CGM reports to PCP for review at f/u. Will review CGM results, DM pathophysiology and more nutrition at next visit. Catarina Cali RDN, CDCES Certified Diabetes Care and Blender Conveyor Operator P: [phone] Thank you for this referral
== END ==
PROVIDERS: Family Provider Family Medicine; PCP Family Medicine; Referring Provider Family Medicine
DX: E11.9 Type 2 diabetes mellitus without complications (principal); Z79.4 Long term (current) use of insulin; Z71.3 Dietary counseling and surveillance
CPT/HCPCS: 97802

== ENCOUNTER → 2024-05-29 11:03 | Outpatient (CLI) | payer OTHER, MEDICAID, SELFPAY ==
--- NOTE | 2024-05-29 11:39 | DIAB.MNTFU ---
Follow-up Diabetes Medical Nutrition Therapy Assessment Name: Sol Leon Date: 05/29/24 Time: Dx: Type II Diabetes Provider: Samuels Sol presents for follow-up visit virtually through Portal. Endorses new diagnosis of T2DM since January this year. FH of DM with her father, paternal uncle, and both grandmothers. Unclear of when her father was diagnosed, reports he is . PMH of 3 births, no GDM or PDM hx per report. Wore CGM and liked it. Sample ran out and she is waiting on insurance/pharmacy. May require 4 injections per day. Reviewing previous CGM stats, elevated all day. Did reports one day fasting until dinner and had a BG of 147mg/dl, however otherwise BG often in the 200s. Added 5u mealtime insulin at dinner at last PCP visit. Choosing sf energy drink but adding sugared flavoring at a coffee shop, [employer]. Trying to be aware of carb portions. Choosing lower CHO food options. Choosing half the portions she use to eat. Foods lately: hamburger helper (1.5-2c), Potatoes with cream of mushroom and ground beef (1.5c) Needs to wait until SNAP benefits come in to buy more veggies. Has some frozen broccoli now. SNAP benefit tomorrow. 40g carb per half pizza with 1g fiber. Feels comfortable with Rule 15 tx for lows. Diet recall Last Visit: 10a-12p: cereal OR cream of wheat OR chicken bake on emperatriz purchased 3-4p: 1oz bag chips 5-6p: 1-2c spaghetti with garlic bread OR mashed potatoes x 1c with chx and green beans 24oz sweetened energy drink (does not like the sf option) 16oz milk 3-4 x 16.9oz water eggnog sometimes Anthropometrics: Ht: 64 Wt: 242# (down almost 3#) Physical Activity: Fatigue is a barrier, which may be r/t hyperglycemia. Was enjoying walking and swimming last year. Self-Monitoring Blood Glucose: On/off checking FBG, but plans to restart this. Diabetes Medications: 30u Glargine HS 5u Aspart at dinner ac Pertinent Labs: HGA1c: 7% 01/2024 8.8% 04/2024 Past Medical History: (Last Reviewed 05/02/24 @ 13:35 by Max Samuels DO) Acute bacterial bronchitis ADD (attention deficit disorder) Allergies Anemia affecting Borderline hyperlipidemia Chronic cough Chronic urinary tract infection Concussion Dyspnea due to COVID-19 Dysuria Fatigue Frequent UTI GERD (gastroesophageal reflux disease) Headache History of suicide attempt Hyperemesis gravidarum Incontinence Low back strain Menorrhagia Moderate ankle sprain Nontraumatic coccydynia Personality disorder Pharyngitis due to Streptococcus species POTS (postural orthostatic tachycardia syndrome) Tobacco abuse disorder Type 2 diabetes mellitus Urge incontinence Urinary urgency Vaginal yeast infection Nutrition Rx: Carbohydrates: Meal:30g (up to 45g after BG better managed) Snack:15-30g Nutrition Diagnosis: - Excessive CHO intake r/t new dx T2DM and nutrition knowledge deficit aeb diet recall, hgA1c, and pt report- in progress - Physical inactivity r/t fatigue attributed likely to elevated BG aeb pt report and BG meter- continued - Predicted inadequate fiber intake r/t limited veggies aeb pt report - new Intervention: This participant was very receptive. Provided appropriate educational handouts. Discussed the following topics: Reinforced Rule of 15 for lows prn Reviewed label reading for net CHO and CHO recs Encouraged increased veggie intake for increased fiber, satiety and lower CHO Encouraged her to check on CGM process this week or next Created SMART goals for patient self-care and success. Goals: Wear CGM x 10.5 days- met Insulin: 20u tonight 2-3 days if FBG >150mg/dl increase to 22u- met Be aware of CHO at meals as discussed - met Aim for 30-45g CHO at meals- new Keep casserole foods to 1-1.5c + veggies- new Buy veggies this week- new Call pharmacy this week or next concerning CGM- new Follow-up: MELVIN DELACRUZ follow-up in 2 weeks and PCP in one week. Catarina Cali RDN, JAYME Certified Diabetes Care and Water Ski Assembler P: [phone] Thank you for this referral
== END ==
PROVIDERS: Family Provider Family Medicine; PCP Family Medicine; Referring Provider Family Medicine
DX: E11.9 Type 2 diabetes mellitus without complications (principal); Z71.3 Dietary counseling and surveillance; Z83.3 Family history of diabetes mellitus; Z79.4 Long term (current) use of insulin
CPT/HCPCS: 97803

== ENCOUNTER → 2024-06-12 11:14 | Outpatient (CLI) | payer OTHER, SELFPAY ==
--- NOTE | 2024-06-26 16:23 | DIAB.FU ---
Follow-up Diabetes Education Assessment Name: Sol Leon Date: 06/12/24 Time: Dx: Type II Diabetes Provider: Samuels Sol presents for follow-up visit virtually through Portal. Taking Invega via her psyc provider. Per this provider, this medication may be causing her hyperglycemia. Plans to titrating off this medication, with concerns for hypoglycemia in the process. Will continue to monitor. she is using a CGM sample with success and would benefit from CGM therapy due to excessive hyperglycemia, not making goal of 70% or more time in range, and risk for lows once she d/c Invega. Really wants to try pump therapy. Sometimes forgetting insulin BID. Insurance denied CGM. No cereal at breakfast lately. Increasing veggie intake. Diet recall: 10a-12p: sub sandwich 6 OR cheese quesadillas with low CHO tortilla 5-6p: tacos x 2 crunch and 1 soft or pok and 1/3c potaotes with salad zero sugar sodas lately 24oz sf energy drink milk less frequently now 2 x 16.9oz water Physical Activity: Fatigue is a barrier, which may be r/t hyperglycemia. Was enjoying walking and swimming last year. Self-Monitoring Blood Glucose: Excessive time >180mg/dl. Just below goal of 70% time in range. 14 d TIR: 2% very high 32% high 66% in range 0% low or very low Av mg/dl std dev: 29mg/dl GMI: 7.4% variation 17% Diabetes Medications: 34u Glargine HS 5u Aspart BID at lunch and dinner ac Pertinent Labs: HGA1c: 7% 01/2024 8.8% 04/2024 Past Medical History: (Last Reviewed 05/02/24 @ 13:35 by Max Samuels DO) Acute bacterial bronchitis ADD (attention deficit disorder) Allergies Anemia affecting Borderline hyperlipidemia Chronic cough Chronic urinary tract infection Concussion Dyspnea due to COVID-19 Dysuria Fatigue Frequent UTI GERD (gastroesophageal reflux disease) Headache History of suicide attempt Hyperemesis gravidarum Incontinence Low back strain Menorrhagia Moderate ankle sprain Nontraumatic coccydynia Personality disorder Pharyngitis due to Streptococcus species POTS (postural orthostatic tachycardia syndrome) Tobacco abuse disorder Type 2 diabetes mellitus Urge incontinence Urinary urgency Vaginal yeast infection Intervention: This participant was very receptive. Provided appropriate educational handouts. Discussed the following topics: Reviewed insulin types and when to take Brief review of nutrition changes in depth discussion about potential for an insulin pump, types, and benefits Created SMART goals for patient self-care and success. Goals: Aim for 30-45g CHO at meals- met Keep casserole foods to 1-1.5c + veggies- continue Buy veggies this week- met Call pharmacy this week or next concerning CGM- d/c Try to take mealtime insulin BID as rx'd- new Continue nutrition changes- new Follow-up: MELVIN DELACRUZ follow-up in 2-3 weeks. Coordinated with [employer] and PCP about starting the process of getting Sol her insulin pump therapy. She is very much wanting an insulin pump. Catarina Cali RDN, TAWNYES Certified Diabetes Care and Bond Broker P: [phone] Thank you for this referral
== END ==
PROVIDERS: Family Provider Family Medicine; PCP Family Medicine; Referring Provider Family Medicine
DX: E11.9 Type 2 diabetes mellitus without complications (principal); Z71.3 Dietary counseling and surveillance; Z79.84 Long term (current) use of oral hypoglycemic drugs
CPT/HCPCS: G0108

== ENCOUNTER → 2024-06-20 06:48 | Outpatient (CLI) | payer OTHER, SELFPAY ==
--- NOTE | 2024-06-20 06:50 | DI.US.S_ITS ---
PROCEDURE: US PELVIC COMPLETE INDICATIONS: AMENORRHEA X 2 YEARS TECHNIQUE: Real-time scanning was performed of the pelvic organs, with image documentation. Additional endovaginal scanning was necessary due to incomplete visualization of the adnexal and endometrial structures by transabdominal scanning. COMPARISON: None. FINDINGS: Uterus: Uterus is anteverted and normal in size at 6.2 x 4.0 x 5.0 cm. The myometrium is homogeneous. The endometrium measures 6.4 mm combined thickness. No myometrial or endometrial mass. Normal vascularity in the uterus. The cervix appears normal. Ovaries: The right ovary measures 2.2 x 3.1 x 1.4 cm, with a calculated ovarian volume of 5.2 cc. The left ovary measures 3.4 x 2.3 x 1.6 cm, with a calculated ovarian volume of 6.4 cc. The ovaries have a normal sonographic appearance. Less than 12 follicles can be seen in each ovary. No adnexal masses are seen. Other: No pathologic free abdominal or pelvic fluid. IMPRESSION: Normal pelvic ultrasound. Specifically, normal ovaries with appropriate morphology and number of follicles. We strive to produce accurate, complete, and clear reports of imaging services. To assist us in improving patient care, this report was composed using standard report templates and voice recognition software. Therefore, it may contain abnormal punctuation, insertions and/or omissions. Occasional wrong-word or sound-alike substitutions may occur. Though we review the report and make efforts to correct it, we do recommend that the report be read carefully in proper context to recognize any text inaccuracies. Dictated by: Leidy Fine M.D. on 06/20/2024 at 12:43 Approved by: Leidy Fine M.D. on 06/20/2024 at 13:17
== END ==
PROVIDERS: Family Provider Family Medicine; PCP Family Medicine; Referring Provider Family Medicine; Visit Provider Family Medicine
DX: N91.2 Amenorrhea, unspecified (principal)
CPT/HCPCS: 76830; 76856

== ENCOUNTER → 2024-07-10 12:52 | Outpatient (CLI) | payer OTHER, SELFPAY ==
--- NOTE | 2024-08-19 11:53 | DIAB.FU ---
Follow-up Diabetes Education Assessment Name: Sol Leon Date: 07/10/24 Time: 1-2p Dx: Type II Diabetes Provider: Arvind Horton presents for follow-up visit accompanied by [employer] computer technology trainer for insulin pump start. Eating BID + snacks. Forgetting insulin doses lately. Brought CGM and 780G insulin pump. Insulin settings; TDD: 28.5u basal rate: 1.2u/hour I:C: 7.8 g/1u ISF: 31mg/dl/1u Target range 100-150mg/dl Max bolus 20u Max basal rate 3.0u Physical Activity: No program currently. Was enjoying walking and swimming last year. Self-Monitoring Blood Glucose: Big increase in hyperglycemia recently with forgetting insulin doses lately. 14 d TIR: 93% very high 7% high 0% in range 0% low or very low Av mg/dl std dev: 55mg/dl GMI: 11.4% variation 16.1% Last 14 d TIR: 2% very high 32% high 66% in range 0% low or very low Av mg/dl std dev: 29mg/dl GMI: 7.4% variation 17% Diabetes Medications: 34u Glargine HS 5u Aspart BID at lunch and dinner ac Pertinent Labs: HGA1c: 7% 01/2024 8.8% 04/2024 Past Medical History: Acute bacterial bronchitis ADD (attention deficit disorder) Allergies Anemia affecting Borderline hyperlipidemia Chronic cough Chronic urinary tract infection Concussion Dyspnea due to COVID-19 Dysuria Fatigue Frequent UTI GERD (gastroesophageal reflux disease) Headache History of suicide attempt Hyperemesis gravidarum Incontinence Low back strain Menorrhagia Moderate ankle sprain Nontraumatic coccydynia Personality disorder Pharyngitis due to Streptococcus species POTS (postural orthostatic tachycardia syndrome) Tobacco abuse disorder Type 2 diabetes mellitus Urge incontinence Urinary urgency Vaginal yeast infection Intervention: This participant was very receptive. Provided appropriate educational handouts. Discussed the following topics: Insulin pump and CGM start, education, and precautions Bolusing for meals/snacks TIR and BG trends Created SMART goals for patient self-care and success. Goals: Try to take mealtime insulin BID as rx'd- not met Continue nutrition changes- in progress Wear 780G- new bolus for meals/snacks- new Follow-up: MELVIN DELACRUZ follow-up in 2 weeks in-person and computer technology trainer f/u in 3 days. Catarina Cali RDN, [facility] Certified Diabetes Care and Marketing Research Analyst P: [phone] Thank you for this referral
== END ==
PROVIDERS: Family Provider Family Medicine; PCP Family Medicine; Referring Provider Family Medicine
DX: E11.9 Type 2 diabetes mellitus without complications (principal); Z96.41 Presence of insulin pump (external) (internal); Z79.4 Long term (current) use of insulin; Z71.3 Dietary counseling and surveillance
CPT/HCPCS: G0108

== ENCOUNTER → 2024-07-24 13:20 | Outpatient (CLI) | payer OTHER, SELFPAY ==
--- NOTE | 2024-08-26 16:43 | DIAB.MNTFU ---
Follow-up Diabetes Medical Nutrition Therapy Assessment Name: Sol Leon Date: 07/24/24 Time: 215-230p Dx: Type II Diabetes Sol presents for follow-up visit virtually using [facility] Portal. Reports some dizziness with lower in range BG but feeling much better now. Target still at 100-150mg/dl. Can reduce to 120mg/dl next visit if no hypoglycemia. Saw Kjer yesterday and exploring other optinos for bipolar treatment that will not impact BG. Denies any current questions. Changing sites well. Had a salad last night and not sure what veggies she likes otherwise. Likes spinach and eats maybe 1-2x per week. SNAP benefits renew in one week and can buy more veggies. Open to increasin gveggies. Insulin settings; TDD: 53.1u basal rate: 1.2u/hour I:C: 7.0 g/1u ISF: 28mg/dl/1u Target range 100-150mg/dl Physical Activity: No program currently. Was enjoying walking and swimming last year. Self-Monitoring Blood Glucose: Much improved BG with improved TIR, however is feeling low with in range BG. Will leave target goals at this time. 14 d TIR: 5% very high 38% high 57% in range 0% low or very low Av mg/dl std dev: 44mg/dl GMI: 7.5% variation 25% Last 14 d TIR: 93% very high 7% high 0% in range 0% low or very low Av mg/dl std dev: 55mg/dl GMI: 11.4% variation 16.1% Diabetes Medications: Aspart via insulin pump Pertinent Labs: HGA1c: 7% 01/2024 8.8% 04/2024 Past Medical History: Acute bacterial bronchitis ADD (attention deficit disorder) Allergies Anemia affecting Borderline hyperlipidemia Chronic cough Chronic urinary tract infection Concussion Dyspnea due to COVID-19 Dysuria Fatigue Frequent UTI GERD (gastroesophageal reflux disease) Headache History of suicide attempt Hyperemesis gravidarum Incontinence Low back strain Menorrhagia Moderate ankle sprain Nontraumatic coccydynia Personality disorder Pharyngitis due to Streptococcus species POTS (postural orthostatic tachycardia syndrome) Tobacco abuse disorder Type 2 diabetes mellitus Urge incontinence Urinary urgency Vaginal yeast infection Nutrition Rx: Carbohydrates: Meal:30g (up to 45g after BG better managed) Snack:15-30g Nutrition Diagnosis: - Excessive CHO intake r/t new dx T2DM and nutrition knowledge deficit aeb diet recall, hgA1c, and pt report- in progress - Physical inactivity r/t fatigue attributed likely to elevated BG aeb pt report and BG meter- continued - Predicted inadequate fiber intake r/t limited veggies aeb pt report - in progress Intervention: This participant was very receptive. Provided appropriate educational handouts. Discussed the following topics: Check-in on pump comfortability Review of low BG vs in range BG that are lower, how to tx Strategies on how to incorporate veggies affordably Goals: Wear 780G- met bolus for meals/snacks- met Salad 2x per week- new Follow-up: MELVIN DELACRUZ follow-up in [address] will check on CGM over the next two weeks. Catarina Cali RDN, CDCES Certified Diabetes Care and Process Equipment Operator P: [phone] Thank you for this referral
== END ==
PROVIDERS: Family Provider Family Medicine; PCP Family Medicine; Referring Provider Family Medicine
DX: E11.65 Type 2 diabetes mellitus with hyperglycemia (principal); F31.9 Bipolar disorder, unspecified; Z79.4 Long term (current) use of insulin; Z96.41 Presence of insulin pump (external) (internal)
CPT/HCPCS: 97803

== ENCOUNTER → 2024-09-16 10:40 | Outpatient (CLI) | payer OTHER, SELFPAY ==
--- NOTE | 2024-09-16 10:43 | DIAB.FU ---
Follow-up Diabetes Education Assessment Name: Sol Leon Date: 09/16/24 Time: a Dx: Type II Diabetes Sol presents for follow-up visit virtually using Portal. Her mother is present during this visit. Reduced BG target to 110mg/dl since she it tolerating lower BG ok. Not bolusing lately. States she forgets. BG still doing relatively well despite this. RD has been checking CGm over the last two months. No significant low trends. States she has questions about pump types. Also reports questions regarding low treatment. Her mom had recommended juice and peanut butter. Mother is concerned about risk of diabetic coma which bolusing too high of CHO. Continues to work on veggie intake. Missed PCP appt. Has not rescheduled. Has 1-2 weeks left of insulin via vial. Changing insurance to [employer] Reports some difficulty with sleep and pump comfortability side note: during our visit her mother reports recent BG of her own (not Sol) of 300-600mg/dl. Encouraged her to go to ED if she cannot see her provider iron. Insulin settings; TDD: 53.1u --- down to 45.1u basal rate: 1.2u/hour I:C: 7.0 g/1u ISF: 28mg/dl/1u Target range 120mg/dl--- 110mg/dl Physical Activity: No program currently. Was enjoying walking and swimming last year. Self-Monitoring Blood Glucose: Much improved BG with improved TIR despite not bolusing. 14 d TIR: 1% very high 25% high 74% in range 0% low or very low Av mg/dl std dev: 33mg/dl GMI: 7.2% variation 20.5% Last 14 d TIR: 5% very high 38% high 57% in range 0% low or very low Av mg/dl std dev: 44mg/dl GMI: 7.5% variation 25% Diabetes Medications: Aspart via insulin pump Pertinent Labs: HGA1c: 7% 01/2024 8.8% 04/2024 Past Medical History: Acute bacterial bronchitis ADD (attention deficit disorder) Allergies Anemia affecting Borderline hyperlipidemia Chronic cough Chronic urinary tract infection Concussion Dyspnea due to COVID-19 Dysuria Fatigue Frequent UTI GERD (gastroesophageal reflux disease) Headache History of suicide attempt Hyperemesis gravidarum Incontinence Low back strain Menorrhagia Moderate ankle sprain Nontraumatic coccydynia Personality disorder Pharyngitis due to Streptococcus species POTS (postural orthostatic tachycardia syndrome) Tobacco abuse disorder Type 2 diabetes mellitus Urge incontinence Urinary urgency Vaginal yeast infection Intervention: This participant was very receptive. Provided appropriate educational handouts. Discussed the following topics: BG trends Importance of bolusing Safety features of insulin pump Risk of lows and treatment recs with Rule of 15 Target changes in pump Encouraged PCP appt in the next week Pump accessories for sleep Different types of pumps pro/cons Goals: Salad 2x per week- in progress Call PCP office for visit- new Bolus pre meal- new Check out pump belt for sleep- new Call [employer] about insurance change- new Follow-up: MELVIN DELACRUZ follow-up in 6 weeks. 6 month check in after next visit if all is going well. Catarina Cali RDN, CDCES Certified Diabetes Care and Metal Control Coordinator P: [phone] Thank you for this referral
== END ==
LOC: DIET 10:41
PROVIDERS: Family Provider Family Medicine; PCP Family Medicine; Referring Provider Family Medicine
DX: E11.9 Type 2 diabetes mellitus without complications (principal); Z71.3 Dietary counseling and surveillance; Z79.4 Long term (current) use of insulin; Z96.41 Presence of insulin pump (external) (internal)
CPT/HCPCS: G0108

== ENCOUNTER → 2024-09-29 16:04 | Outpatient (CLI) | payer OTHER, SELFPAY ==
[2024-09-29 16:38] LABS: Add Manual Diff / Slide Review NO; Basophils Absolute Auto 100 /uL (0-100); Basophils Percent Auto 0.9 % (0-2); Eosinophils Absolute Auto 200 /uL (0-450); Eosinophils Percent Auto 1.3 % (2-4); Hematocrit 40.4 % (36-46); Hemoglobin 13.1 g/dL (12.0-16.0); Lymphocytes Absolute Auto 3800 /uL (1100-4500); Lymphocytes Percent Auto 29.4 % (25-40); Mean Corpuscular HGB Conc 32.5 % (30-36); Mean Corpuscular Hemoglobin 25.3 PG (26-34); Mean Corpuscular Volume 77.7 fL (80-100); Monocytes Absolute Auto 900 /uL (0-900); Monocytes Percent Auto 7.1 % (3-14); Neutrophils Absolute Auto 7900 /uL (1500-7000); Neutrophils Percent Auto 61.3 % (50-75); Platelet Count 251 X10^3/uL (150-400); Red Blood Cell Count 5.19 X10^6/uL (4.0-5.2); Red Cell Distribution Width 14.3 % (11.6-14.8); White Blood Cell Count 12.9 X10^3/uL (4.5-11.0)
[2024-09-29 16:46] LABS: Alanine Aminotransferase 39 IU/L (<35); Albumin 4.4 g/dL (3.5-5.0); Albumin Globulin Ratio 1.5 (1.0-2.8); Alkaline Phosphatase 85 U/L (38-126); Aspartate Aminotransferase 33 IU/L (14-36); BUN Creatinine Ratio 21.1 (6-22); Bilirubin Total 0.5 mg/dL (0.2-1.3); Blood Urea Nitrogen 15 mg/dL (7-17); Calcium 9.6 mg/dL (8.4-10.2); Carbon Dioxide 23 mmol/L (22-32); Chloride 105 mmol/L (98-107); Cholesterol 183 mg/dL (140-199); Estimated Glomerular Filt Rate > 60 mL/min (>60); Glucose 165 mg/dL (70-100); HDL Cholesterol 25 mg/dL (40-60); HEMOLYSIS 19 (0-50); Hemoglobin A1C% w Est Avg Glu 6.7 % (4.0-6.0); LDL Cholesterol Calculated 117 mg/dL (<100); Potassium 4.2 mmol/L (3.4-5.1); Sodium 138 mmol/L (137-145); Total Protein 7.4 g/dL (6.3-8.2); Triglycerides 205 mg/dL (35-150)
[2024-09-29 17:17] LABS: TSH w/ Reflex to FT4 3.14 uIU/mL (0.47-4.68)
[2024-09-29 17:26] LABS: Creatinine Urine Random 255.07 mg/dL
== END ==
PROVIDERS: Family Provider Family Medicine; PCP Family Medicine; Referring Provider Family Medicine; Visit Provider Family Medicine
DX: G62.9 Polyneuropathy, unspecified (principal); N91.1 Secondary amenorrhea; E11.9 Type 2 diabetes mellitus without complications; F60.3 Borderline personality disorder; F41.9 Anxiety disorder, unspecified; E78.5 Hyperlipidemia, unspecified
CPT/HCPCS: 36415; 80053; 80061; 82043; 82570; 83036; 84443; 85025; 96372

== ENCOUNTER → 2024-10-14 14:22 | Outpatient (CLI) | payer OTHER, SELFPAY ==
--- NOTE | 2024-10-14 14:24 | DIAB.FU ---
Follow-up Diabetes Education Assessment Name: Sol Leon Date: 10/14/24 Time: 220-3p Dx: Type II Diabetes Sol presents for follow-up visit virtually using [facility]. Her mother is present during this visit. Reduced BG target to 100mg/dl since she it tolerating lower BG ok. Not bolusing lately. States she forgets still. Despite this she is having very well managed BG and recent hgA1c of 6.7%. Saw PCP since our last visit and rx'd Ozempic, awaiting authorization. Wants to discuss pump types again. About to run out of CGM sensors. Contacted [employer] diabetes trainer for info on this. May start GLP1 pending authorization. States her eventual goal is to get off insulin. May be possible with GLP1 and potentially another oral DM med. Historically could not tolerate Metformin. Wants to review nutrition / DM related labs Insulin settings; TDD: 53.1u --- down to 45.1u ---- 47u basal rate: 1.2u/hour I:C: 7.0 g/1u ISF: 28mg/dl/1u Target range 120mg/dl--- 110mg/dl---- 100mg/dl Physical Activity: No program currently. Was enjoying walking and swimming last year. Self-Monitoring Blood Glucose: Continued improvement in TIR. In goal. 14 d TIR: 0% very high 11% high 89% in range 0% low or very low Av mg/dl std dev: 27mg/dl GMI: 6.8% variation 18.8% Last 14 d TIR: 1% very high 25% high 74% in range 0% low or very low Av mg/dl std dev: 33mg/dl GMI: 7.2% variation 20.5% Diabetes Medications: Aspart via insulin pump Pertinent Labs: HGA1c: 7% 01/2024 8.8% 04/2024 6.7% 09/2024 Past Medical History: Acute bacterial bronchitis ADD (attention deficit disorder) Allergies Anemia affecting Borderline hyperlipidemia Chronic cough Chronic urinary tract infection Concussion Dyspnea due to COVID-19 Dysuria Fatigue Frequent UTI GERD (gastroesophageal reflux disease) Headache History of suicide attempt Hyperemesis gravidarum Incontinence Low back strain Menorrhagia Moderate ankle sprain Nontraumatic coccydynia Personality disorder Pharyngitis due to Streptococcus species POTS (postural orthostatic tachycardia syndrome) Tobacco abuse disorder Type 2 diabetes mellitus Urge incontinence Urinary urgency Vaginal yeast infection Intervention: This participant was very receptive. Provided appropriate educational handouts. Discussed the following topics: BG trends Importance of bolusing Safety features of insulin pump Target changes in pump Different types of pumps pro/cons GLP1 action, benefits, precautions, side effects, and types Potential for reduced insulin needs with GLP1 Impact of fiber and fat intake on lipid values Lab review: hgA1c, lipids Goals: Call PCP office for visit- met Bolus pre meal- not met Check out pump belt for sleep- met Call [employer] about insurance change- met Call insurance about GLP1 authorization or preference- new Start bolusing for meals- new Follow-up: MELVIN DELACRUZ follow-up in 4 weeks Catarina Cali RDN, JAYME Certified Diabetes Care and Real Estate Analyst P: [phone] Thank you for this referral
== END ==
LOC: DIET 14:23
PROVIDERS: Family Provider Family Medicine; PCP Family Medicine; Referring Provider Family Medicine
DX: E11.9 Type 2 diabetes mellitus without complications (principal); Z71.3 Dietary counseling and surveillance; Z96.41 Presence of insulin pump (external) (internal)
CPT/HCPCS: G0108

== ENCOUNTER → 2024-10-23 11:59 | Outpatient (CLI) | payer OTHER, SELFPAY ==
[2024-10-23 12:55] LABS: Hemoglobin A1C% w Est Avg Glu 6.3 % (4.0-6.0)
[2024-10-23 13:01] LABS: Alanine Aminotransferase 41 IU/L (<35); Albumin 4.4 g/dL (3.5-5.0); Albumin Globulin Ratio 1.9 (1.0-2.8); Alkaline Phosphatase 102 U/L (38-126); Aspartate Aminotransferase 28 IU/L (14-36); BUN Creatinine Ratio 10.8 (6-22); Bilirubin Total 0.5 mg/dL (0.2-1.3); Blood Urea Nitrogen 9 mg/dL (7-17); Calcium 9.4 mg/dL (8.4-10.2); Carbon Dioxide 28 mmol/L (22-32); Chloride 103 mmol/L (98-107); Estimated Glomerular Filt Rate > 60 mL/min (>60); Globulin 2.3 g/dL (1.7-4.1); Glucose 96 mg/dL (70-99); HEMOLYSIS < 15 (0-50); Potassium 4.5 mmol/L (3.4-5.1); Sodium 139 mmol/L (137-145); Total Protein 6.7 g/dL (6.3-8.2)
[2024-10-23 13:26] LABS: Thyroid Stimulating Hormone 3.03 uIU/mL (0.47-4.68)
[2024-10-23 15:13] LABS: Creatinine Urine Random 292.74 mg/dL
[2024-10-23 15:20] LABS: Microalbumin Urine Random 13.8 mg/dL (0-1.6)
[2024-10-23 16:11] LABS: Follicle Stimulating Hormone 4.36 mIU/mL; Luteinizing Hormone 9.88 mIU/mL
== END ==
PROVIDERS: Obstetrics & Gynecology; Family Provider Family Medicine; PCP Family Medicine; Referring Provider Family Medicine; Visit Provider Family Medicine
DX: N91.2 Amenorrhea, unspecified (principal); E11.9 Type 2 diabetes mellitus without complications
CPT/HCPCS: 36415; 80053; 82043; 82570; 83001; 83002; 83036; 84439; 84443

== ENCOUNTER → 2024-11-11 13:58 | Outpatient (CLI) | payer OTHER, SELFPAY ==
--- NOTE | 2024-11-11 14:23 | DIAB.MNTFU ---
Follow-up Diabetes Medical Nutrition Therapy Assessment Name: Sol Leon Date: 11/11/24 Time: 2-235p Dx: Type II Diabetes Sol presents for follow-up visit virtually using [facility] Portal. Taking Metformin again, little bit of GI upset but overall doing ok. Tried Semaglutide and had pretty severe nausea x 4-5 days. Had to D/c. PCP and pt discussed Mounjaro rx if insurance will cover. She is hesitant to try given rxn with Semaglutide. One 500mg Metformin daily with rx for BID. If tolerates, she is to message PCP to increase. She is hoping to be able to d/c insulin and wants to lose wt per report. Healthy things don't always sound good to her per reprot. Purchases fruits and veggies and they often go bad. has been eating more veggies in general latley. Has sf beverage option for her daughter, ie crystal light. She drinks regular soda and juice regularly. Not having hyperglycemia, however we did discuss reduction/avoiding to help with reducing wt and reducing insulin needs. States she consumes soda to help with phlegm in the morning. Does nto like sf option. Does not like ICE beverages. Sometimes will forget to take her meds and then upset GI when restarted. Wants to use alarms to remember. Reduced BG target to 100mg/dl last visit and BG have been doing very well. Still not bolusing. Plans for partial hysterectomy in November. Would like to f/u in December. Diet recall: 6a: soda 12oz mid morning: juice/milk/soda 11a: chips and dip OR cookies x 4-5 OR HB eggs 530-6a: protein, veggies (green beans/broccoli), 1/2-1c CHO Reports reduced CHO portions to usually 1/2c at dinner. Insulin settings; TDD: 53.1u --- down to 45.1u ---- 47u---- 31.2u basal rate: 1.2u/hour I:C: 7.0 g/1u ISF: 28mg/dl/1u Target range 120mg/dl--- 110mg/dl---- 100mg/dl Physical Activity: No program currently. Was enjoying walking and swimming last year. Self-Monitoring Blood Glucose: Continued improvement in TIR. In goal. 14 d TIR: 0% very high 1% high 99% in range 0% low or very low Av mg/dl std dev: 21mg/dl GMI: 6.3% variation % Last 14 d TIR: 0% very high 11% high 89% in range 0% low or very low Av mg/dl std dev: 27mg/dl GMI: 6.8% variation 18.8% Diabetes Medications: Aspart via insulin pump Pertinent Labs: HGA1c: 7% 01/2024 8.8% 04/2024 6.7% 09/2024 6.3% 10/2024 Past Medical History: Acute bacterial bronchitis ADD (attention deficit disorder) Allergies Anemia affecting Borderline hyperlipidemia Chronic cough Chronic urinary tract infection Concussion Dyspnea due to COVID-19 Dysuria Fatigue Frequent UTI GERD (gastroesophageal reflux disease) Headache History of suicide attempt Hyperemesis gravidarum Incontinence Low back strain Menorrhagia Moderate ankle sprain Nontraumatic coccydynia Personality disorder Pharyngitis due to Streptococcus species POTS (postural orthostatic tachycardia syndrome) Tobacco abuse disorder Type 2 diabetes mellitus Urge incontinence Urinary urgency Vaginal yeast infection Nutrition Rx: Carbohydrates: Meal:30-45g Snack:15-30g Nutrition Diagnosis: - Excessive CHO intake r/t new dx T2DM and nutrition knowledge deficit aeb diet recall, hgA1c, and pt report- improved/in progress - Predicted inadequate fiber intake r/t limited veggies aeb pt report - improved/in progress Intervention: This participant was very receptive. Provided appropriate educational handouts. Discussed the following topics: BG trends Avoiding beverages wtih sugar Importance of protein and veggies at meals and for satiety Weight loss strategies Metformin titration recs and SE GLP1 types and options Strategies for remembering meds SF beverage options Goals: Call insurance about GLP1 authorization or preference- in progress Start bolusing for meals- not met Try Crystal light flavoring- new Avoid juice- new Take Metformin as rx'd BID- new use phone alarms as reminders to take meds - new Follow-up: MELVIN DELACRUZ follow-up in 6-8 weeks. Pt req to follow-up in December due to November surgery. Encouraged her to reach out to PCP to increase Metformin rx if tolerated prn. She agreed. Catarina Cali RDN, JAYME Certified Diabetes Care and Grain Receiver P: [phone] Thank you for this referral
== END ==
LOC: DIET 13:59
PROVIDERS: Family Provider Family Medicine; PCP Family Medicine; Referring Provider Family Medicine
DX: E11.9 Type 2 diabetes mellitus without complications (principal); Z71.3 Dietary counseling and surveillance; Z79.84 Long term (current) use of oral hypoglycemic drugs; Z79.4 Long term (current) use of insulin; Z96.41 Presence of insulin pump (external) (internal)
CPT/HCPCS: 97803

== ENCOUNTER → 2024-11-24 10:48 | Outpatient (CLI) | payer OTHER, SELFPAY ==
[2024-11-24 12:09] LABS: Free T4, Direct Thyroxine 0.85 ng/dL (0.78-2.19)
[2024-11-24 12:24] LABS: Estradiol, Total 109.7 pg/mL
== END ==
PROVIDERS: Obstetrics & Gynecology; Family Provider Family Medicine; PCP Family Medicine; Referring Provider Psychiatry & Neurology Psychiatry; Visit Provider Psychiatry & Neurology Psychiatry
DX: E03.9 Hypothyroidism, unspecified (principal); F31.81 Bipolar II disorder; Z79.899 Other long term (current) drug therapy
CPT/HCPCS: 36415; 82670; 84402; 84403; 84439

== ENCOUNTER → 2025-01-02 14:20 | Outpatient (CLI) | payer OTHER, SELFPAY ==
--- NOTE | 2025-01-07 10:42 | DIAB.FU ---
Follow-up Diabetes Education Assessment Name: Sol Leon Date: 01/02/25 Time: 220-245p Dx: Type II Diabetes Sol presents for follow-up visit virtually using Portal. Recent illness and self d/c of Metformin, never restarted. Drinking more soda recently, though open to d/c of this due to cost. Prefers water, instead of trying sf options. Is not bolusing for meals, but BG continue in goal despite this. States she feels strongly about changing pump types to a tubeless option. She has brought this up in past appointments. RD does have some concerns about switch, ie tubeless option is more dependent on bolusing. Plans for partial hysterectomy in January. RD recommended change of pump after surgery in order to not introduce a variable to changing BG results/management. Insulin settings; TDD: 53.1u --- down to 45.1u ---- 47u---- 31.2u---- 50u basal rate: 1.2u/hour I:C: 7.0 g/1u ISF: 28mg/dl/1u Target range 120mg/dl--- 110mg/dl---- 100mg/dl Physical Activity: No program currently. Was enjoying walking and swimming last year. Self-Monitoring Blood Glucose: Continued in goal TIR, however increase in hyperglycemia likely r/t soda intake and missed boluses. 14 d TIR: 0% very high 18% high 82% in range 0% low or very low Av mg/dl std dev: 32mg/dl GMI: 7% variation % Last 14 d TIR: 0% very high 1% high 99% in range 0% low or very low Av mg/dl std dev: 21mg/dl GMI: 6.3% variation % Diabetes Medications: Aspart via insulin pump Pertinent Labs: HGA1c: 7% 01/2024 8.8% 04/2024 6.7% 09/2024 6.3% 10/2024 Past Medical History: Acute bacterial bronchitis ADD (attention deficit disorder) Allergies Anemia affecting Borderline hyperlipidemia Chronic cough Chronic urinary tract infection Concussion Dyspnea due to COVID-19 Dysuria Fatigue Frequent UTI GERD (gastroesophageal reflux disease) Headache History of suicide attempt Hyperemesis gravidarum Incontinence Low back strain Menorrhagia Moderate ankle sprain Nontraumatic coccydynia Personality disorder Pharyngitis due to Streptococcus species POTS (postural orthostatic tachycardia syndrome) Tobacco abuse disorder Type 2 diabetes mellitus Urge incontinence Urinary urgency Vaginal yeast infection Nutrition Rx: Carbohydrates: Meal:30-45g Snack:15-30g Nutrition Diagnosis: - Excessive CHO intake r/t new dx T2DM and nutrition knowledge deficit aeb diet recall, hgA1c, and pt report- improved/in progress - Predicted inadequate fiber intake r/t limited veggies aeb pt report - improved/in progress Intervention: This participant was very receptive. Provided appropriate educational handouts. Discussed the following topics: BG trends Avoiding beverages wtih sugar Importance of protein and veggies at meals and for satiety Weight loss strategies Metformin titration recs and SE GLP1 types and options Strategies for remembering meds SF beverage options Goals: Try Crystal light flavoring- not met Avoid juice- in progress Take Metformin as rx'd BID- not met use phone alarms as reminders to take meds - not met Restart Metformin- new Discontinue sugar beverages- new Follow-up: MELVIN DELACRUZ follow-up in January after surgery. [facility] has inquired about process for switching pump. Will follow-up with her post surgery and determine plan for tubeless pump. Catarina Cali RDN, [facility] Certified Diabetes Care and Coal Yard Supervisor P: [phone] Thank you for this referral
== END ==
LOC: DIET 14:21
PROVIDERS: PCP Family Medicine; Referring Provider Family Medicine
DX: E11.65 Type 2 diabetes mellitus with hyperglycemia (principal); Z71.3 Dietary counseling and surveillance; Z96.41 Presence of insulin pump (external) (internal); Z79.4 Long term (current) use of insulin
CPT/HCPCS: G0108

== ENCOUNTER → 2025-03-05 09:55 | Outpatient (CLI) | payer OTHER, SELFPAY ==
--- NOTE | 2025-03-05 10:20 | DIAB.MNTFU ---
Follow-up Diabetes Medical Nutrition Therapy Assessment Name: Sol Leon Date: 03/05/25 Time: 10 Dx: Type II Diabetes Sol presents for follow-up visit virtually using [facility] Portal. Stopped insulin pump under PCP recommendation. Wearing FSL3+ sample CGM. BG has been in goal, with some lows. Forgets to take Metfomrin, even with an alarm. Also on Mounjaro 2.5mg per week. Has not increased to 5mg. Endorses some false lows, confirmed with fingerstick. Appetite low but eating 2x per day. A little soda and juice lately. Also drinking sweetened energy drink and coffee. RD wondering if changing her changes in psych meds has improved insulin resistance. Due for eye appt. After this visit, RD discussed plan of care with PCP. Plan is to hold Metformin and continue with GLP1, increase to 5mg per week. This has been communicated with pt. Diet Recall: 10a: Pizza OR almonds alone OR Chips OR cereal (hot or cold) 530p: Spaghetti OR steak OR sandwich OR ehsan OR BLT 10-11p: Pizza OR almonds OR chips OR cookies OR cake Beverages: coffee, water, energy drink, soda, juice Limited veggies intake. Wants to add more. Physical Activity: Wants to start at the gym. Mom has the membership and has to go with her. Self-Monitoring Blood Glucose: Continued in goal TIR, with improved TIR. 14 d TIR: 0% very high 0% high 97% in range 3% low 0% very low Av mg/dl std dev: mg/dl GMI: % variation 17.0% Last 14 d TIR: 0% very high 10% high 90% in range 0% low or very low Av mg/dl std dev: 27mg/dl GMI: 6.8% variation % Diabetes Medications: Aspart via insulin pump--- d/c 2.5mg Mounjaro--- rx for 5mg Mounjaro 500mg Metformin BID--- hold Pertinent Labs: HGA1c: 7% 01/2024 8.8% 04/2024 6.7% 09/2024 6.3% 10/2024 Past Medical History: Acute bacterial bronchitis ADD (attention deficit disorder) Allergies Anemia affecting Borderline hyperlipidemia Chronic cough Chronic urinary tract infection Concussion Dyspnea due to COVID-19 Dysuria Fatigue Frequent UTI GERD (gastroesophageal reflux disease) Headache History of suicide attempt Hyperemesis gravidarum Incontinence Low back strain Menorrhagia Moderate ankle sprain Nontraumatic coccydynia Personality disorder Pharyngitis due to Streptococcus species POTS (postural orthostatic tachycardia syndrome) Tobacco abuse disorder Type 2 diabetes mellitus Urge incontinence Urinary urgency Vaginal yeast infection Nutrition Rx: Carbohydrates: Meal:30-45g Snack:15-30g Nutrition Diagnosis: - Excessive CHO intake r/t stage of change aeb diet recall of frequent sugar beverages- new - Physical inactivity r/t stage of change aeb pt report of wanting to go, but not yet going to gym- new - Predicted inadequate fiber intake r/t limited veggies aeb pt report - in progress Intervention: This participant was very receptive. Provided appropriate educational handouts. Discussed the following topics: BG trends Avoiding/reducing beverages with sugar SF beverage options and preferences Strategies for adding veggies Physical activity Medication management Troubleshooting connection between pump chalo and pump Goals: Start alarm to take Metformin- met Start with 500mg x 1 week and then 500mg BID after- not met Switch to sf energy drink- 25% Cut soda down to 2 per day- met Buy some vegetables tomorrow- new Pick a day to go to the gym with mom- new Call insurance about Dm eye exam coverage- new Follow-up: MELVIN DELACRUZ follow-up in 6 weeks Catarina Cali RDN, JAYME Certified Diabetes Care and Field Broomer P: [phone] Thank you for this referral
== END ==
LOC: DIET 09:56
PROVIDERS: PCP Family Medicine; Referring Provider Family Medicine
DX: E11.9 Type 2 diabetes mellitus without complications (principal); Z71.3 Dietary counseling and surveillance; Z79.85 Long-term (current) use of injectable non-insulin antidiabetic drugs
CPT/HCPCS: 97803

== ENCOUNTER → 2025-04-16 10:02 | Outpatient (CLI) | payer OTHER, SELFPAY ==
--- NOTE | 2025-04-16 10:09 | DIAB.MNTFU ---
Follow-up Diabetes Medical Nutrition Therapy Assessment Name: Sol Leon Date: 04/16/25 Time: a Dx: Type II Diabetes Sol presents for follow-up visit virtually using [facility] Portal. Plans to increase to 5mg after one more dose of 2.5mg. Wanted to use up what she had. BG overall in goal. Occasional elevations in the 200s with sugar beverages, but infrequent. States she has been eating whatever I want. This includes sugar beverages and candy. Wants to eat more veggies. has improved since last visit with veggies q 2 days. Worries about SNAP benefits for April. States this is her main resource for food. Plans to go to food bank if needed as well. -12# over 2 months per report. Endorses CGM sensor fell off prematurely. Apr 29 eye appt. Physical Activity: Wants to start at the gym. Mom has the membership and has to go with her. Has not gone yet. Self-Monitoring Blood Glucose: Continued in goal TIR, with improved TIR. 14 d TIR: 0% very high 0% high 97% in range 3% low 0% very low Av mg/dl std dev: mg/dl GMI: % variation 17.0% Last 14 d TIR: 0% very high 10% high 90% in range 0% low or very low Av mg/dl std dev: 27mg/dl GMI: 6.8% variation % Diabetes Medications: Aspart via insulin pump--- d/c 2.5mg Mounjaro--- rx for 5mg Mounjaro 500mg Metformin BID--- hold Pertinent Labs: HGA1c: 7% 01/2024 8.8% 04/2024 6.7% 09/2024 6.3% 10/2024 Past Medical History: Acute bacterial bronchitis ADD (attention deficit disorder) Allergies Anemia affecting Borderline hyperlipidemia Chronic cough Chronic urinary tract infection Concussion Dyspnea due to COVID-19 Dysuria Fatigue Frequent UTI GERD (gastroesophageal reflux disease) Headache History of suicide attempt Hyperemesis gravidarum Incontinence Low back strain Menorrhagia Moderate ankle sprain Nontraumatic coccydynia Personality disorder Pharyngitis due to Streptococcus species POTS (postural orthostatic tachycardia syndrome) Tobacco abuse disorder Type 2 diabetes mellitus Urge incontinence Urinary urgency Vaginal yeast infection Nutrition Rx: Carbohydrates: Meal:30-45g Snack:15-30g Nutrition Diagnosis: - Excessive CHO intake r/t stage of change aeb diet recall of frequent sugar beverages- continued - Physical inactivity r/t stage of change aeb pt report of wanting to go, but not yet going to gym- continued - Predicted inadequate fiber intake r/t limited veggies aeb pt report - improved/in progress Intervention: This participant was very receptive. Provided appropriate educational handouts. Discussed the following topics: BG trends Avoiding/reducing beverages with sugar [employer]er resource for food security concern Strategies for adding veggies Medication management Resource for replacement of CGM sensor Goals: Buy some vegetables tomorrow- met Pick a day to go to the gym with mom- not met Call insurance about Dm eye exam coverage- met Contact [employer] for replacement- new Look into [employer] - new Follow-up: MELVIN DELACRUZ follow-up recommended in 4-6 weeks. Sol would like to call for appt. Catarina Cali RDN, TAWNYES Certified Diabetes Care and Deportation Officer P: [phone] Thank you for this referral
== END ==
PROVIDERS: PCP Family Medicine; Referring Provider Family Medicine
DX: E11.9 Type 2 diabetes mellitus without complications (principal); Z71.3 Dietary counseling and surveillance; F31.81 Bipolar II disorder; F60.3 Borderline personality disorder; F43.10 Post-traumatic stress disorder, unspecified; F90.2 Attention-deficit hyperactivity disorder, combined type; R53.82 Chronic fatigue, unspecified; Z79.85 Long-term (current) use of injectable non-insulin antidiabetic drugs
CPT/HCPCS: 97803; 99214

== ENCOUNTER → 2025-05-19 11:56 | Outpatient (CLI) | payer OTHER, SELFPAY ==
[2025-05-19 12:32] LABS: Hemoglobin A1C% w Est Avg Glu 6.1 % (4.0-6.0)
[2025-05-19 12:37] LABS: HEMOLYSIS 25 (0-50); Iron 126 ug/dL (37-170)
[2025-05-19 12:42] LABS: Albumin 4.4 g/dL (3.5-5.0); Albumin Globulin Ratio 1.7 (1.0-2.8); Globulin 2.6 g/dL (1.7-4.1); Total Protein 7.0 g/dL (6.3-8.2)
[2025-05-19 12:52] LABS: Percent Iron Saturation 38 % (15-50); Total Iron Binding Capacity 336 ug/dL (265-497)
[2025-05-19 12:55] LABS: Alanine Aminotransferase 63 IU/L (<35); Alkaline Phosphatase 92 U/L (38-126); Blood Urea Nitrogen 7 mg/dL (7-17); Calcium 9.5 mg/dL (8.4-10.2); Carbon Dioxide 26 mmol/L (22-32); Chloride 105 mmol/L (98-107); Estimated Glomerular Filt Rate > 60 mL/min (>60); Free T4, Direct Thyroxine 1.20 ng/dL (0.78-2.19); Glucose 82 mg/dL (70-99); HEMOLYSIS < 15 (0-50); Potassium 4.1 mmol/L (3.4-5.1); Sodium 141 mmol/L (137-145)
[2025-05-19 13:01] LABS: Transferrin 275 mg/dL (206-381)
[2025-05-19 13:11] LABS: Thyroid Stimulating Hormone 1.40 uIU/mL (0.47-4.68)
[2025-05-19 13:14] LABS: Add Manual Diff / Slide Review NO; Hematocrit 41.8 % (36-46); Hemoglobin 13.8 g/dL (12.0-16.0); Lymphocytes Absolute Auto 3300 /uL (1100-4500); Mean Corpuscular HGB Conc 33.1 % (30-36); Mean Corpuscular Hemoglobin 25.5 PG (26-34); Mean Corpuscular Volume 76.9 fL (80-100); Platelet Count 251 X10^3/uL (150-400)
== END ==
PROVIDERS: Obstetrics & Gynecology; PCP Family Medicine; Referring Provider Family Medicine; Visit Provider Family Medicine
DX: E03.9 Hypothyroidism, unspecified (principal); R53.82 Chronic fatigue, unspecified; E11.9 Type 2 diabetes mellitus without complications; F90.0 Attention-deficit hyperactivity disorder, predominantly inattentive type
CPT/HCPCS: 36415; 80053; 83036; 83540; 83550; 84439; 84443; 85025